=== PATIENT | female | born 1940 | race Caucasian/White ===

== ENCOUNTER → 2016-06-07 | Outpatient (CLI) | payer MEDICARE, OTHER ==
[2016-06-07 08:54] LABS: CHLORIDE,CL 104 mmol/L (98-110); SODIUM,NA 140 mmol/L (136-146)
== END ==
LOC: MW.CHRC 08:10
PROVIDERS: ATTEND Family Medicine
DX: I10 Essential (primary) hypertension (principal); E03.9 Hypothyroidism, unspecified; I50.9 Heart failure, unspecified; M19.90 Unspecified osteoarthritis, unspecified site; K21.9 Gastro-esophageal reflux disease without esophagitis
CPT/HCPCS: 36415; 80053; 84443; 99214

== ENCOUNTER → 2016-06-14 | Outpatient (CLI) | payer MEDICARE, OTHER ==
--- NOTE | 2016-06-15 14:43 | MY ---
EXAMINATION: Bilateral digital mammography utilizing CAD. HISTORY: Screening exam. Comparison is made to previous studies dated 05/18/2015, 05/15/2014. FINDINGS: Bilateral scattered fibroglandular densities. No suspicious calcifications, masses or a rchitectural distortions. No pathologic appearing lymph nodes, no abnormal skin thickening or nipp le inversion. CAD highlighted regions appear normal at this time. IMPRESSION: BI-RADS category I - negative mammogram. Continued screening according to ACR-ACS g uidelines suggested. THE FALSE-NEGATIVE RATE OF MAMMOGRAM IS APPROXIMATELY 10%. MANAGEMENT OF A PALPABLE ABNORMALITY MUST BE BASED UPON CLINICAL GROUNDS. SENSITIVITY FOR DETECTION OF ABNORMALITIES IN DENSE BREASTS IS LOW. NOTE: A letter will be sent to the patient regarding findings. [facility] -- [place] [phone] - FAX [phone]
--- NOTE | 2016-06-16 16:04 | ECHO ---
The echocardiogram report can be seen in this patient's EMR in the Reports section. LIOR
== END ==
LOC: MW.MAM 13:23
PROVIDERS: ATTEND Family Medicine
DX: Z12.31 Encounter for screening mammogram for malignant neoplasm of breast (principal); I50.9 Heart failure, unspecified
CPT/HCPCS: 93306; G0202

== ENCOUNTER 2018-03-01 07:21 | Observation (INO) | payer MEDICARE, OTHER ==
[~2018-03-01 07:21] MED LIST: Sodium Chloride 0.9% 10 ML Syringe FLUSH PRN; Sodium Chloride 0.9% 2.5 ML Syringe FLUSH PRN; ceFAZolin 2 GM in Premix Bag 1 BAG IV ONE
--- NOTE | 2018-03-01 07:47 | PCM.PREANE ---
Preanesthetic Assessment - Anesthesia/Transfusion/Family Hx Anesthesia History: Prior Anesthesia Without Reaction Family History of Anesthesia Reaction: No Transfusion History: Prior Transfusion Without Reaction - Review of Systems General: No Symptoms Pulmonary: No Symptoms Cardiovascular: No Symptoms Gastrointestinal: No Symptoms Neurological: No Symptoms Other: Reports: None - Physical Assessment NPO Status Date: 02/28/18 Height: 5 ft 3 in Weight: 74.389 kg ASA Class: 3 Mental Status: Alert & Oriented x3 Airway Class: Mallampati = 2 Dentition: Reports: Bridge (bilat lateral maxillary) Lungs: Clear to Auscultation, Normal Respiratory Effort Cardiovascular: Regular Rate, Regular Rhythm - Lab Values: Laboratory Last Values WBC 3.72 K/uL (4.0-11.0) L 02/28/18 11:48 RBC 3.06 M/uL (4.30-5.90) L 02/28/18 11:48 Hgb 11.0 g/dL (12.0-16.0) L 02/28/18 11:48 Hct 33.7 % (36.0-46.0) L 02/28/18 11:48 MCV 110.1 fL (80.0-98.0) H 02/28/18 11:48 MCH 35.9 pg (27.0-32.0) H 02/28/18 11:48 MCHC 32.6 g/dL (31.0-37.0) 02/28/18 11:48 RDW Std Deviation 54.7 fl (28.0-62.0) 02/28/18 11:48 RDW Coeff of Kristofer 14 % (11.0-15.0) 02/28/18 11:48 Plt Count 242 K/uL (150-400) 02/28/18 11:48 MPV 11.50 fL (7.40-12.00) 02/28/18 11:48 Nucleated RBC % 0.0 /100WBC 02/28/18 11:48 Nucleated RBCs # 0 K/uL 02/28/18 11:48 Sodium 143 mmol/L (136-145) 02/28/18 11:48 Potassium 3.9 mmol/L (3.5-5.1) 02/28/18 11:48 Chloride 107 mmol/L (98-107) 02/28/18 11:48 Carbon Dioxide 25.6 mmol/L (21.0-32.0) 02/28/18 11:48 BUN 24 mg/dL (7.0-18.0) H 02/28/18 11:48 Creatinine 1.2 mg/dL (0.6-1.0) H 02/28/18 11:48 Est Cr Clr Drug Dosing 32.48 mL/min 02/28/18 11:48 Estimated GFR (MDRD) 43.6 ml/min 02/28/18 11:48 Glucose 85 mg/dL (74-106) 02/28/18 11:48 Calcium 9.7 mg/dL (8.5-10.1) 02/28/18 11:48 Blood Type A POSITIVE 02/28/18 11:48 Antibody Screen NEGATIVE 02/28/18 11:48 - Allergies Allergies/Adverse Reactions: Allergies Allergy/AdvReac Type Severity Reaction Status Date / Time adhesive Allergy Burning Verified 02/28/18 16:09 cephalexin [Cephalexin] Allergy Hives Verified 02/27/18 09:49 erythromycin lactobionate Allergy Agitation Verified 02/27/18 09:49 [From Erythrocin] iodine Allergy Difficulty Verified 02/27/18 09:49 Breathing Penicillins Allergy Hives Verified 02/27/18 09:49 pregabalin [From Lyrica] Allergy Other Verified 02/27/18 09:49 simvastatin Allergy Muscle Verified 02/27/18 09:49 Aches - Anesthesia Plan Pre-Op Medication Ordered: Other (scop) - Acknowledgements Anesthesia Type Planned: General Anesthesia Pt an Appropriate Candidate for the Planned Anesthesia: Yes Alternatives and Risks of Anesthesia Discussed w Pt/Guardian: Yes Pt/Guardian Understands and Agrees with Anesthesia Plan: Yes Additional Comments: PROBLEM LIST: hx of cardiomyopathy- Ef this month was 50%, stress test in feb 2018- no ischemia, hx of SVT treated with ablation, hx of ASD repair in 2002, hx of polymyalgia-being tapered from steroids-now taking 5 mg of prednisone four times a week,CKD3-GFR=43, GERD, HTN, thyroid replacement, chronic LBBB, anxiety and depression PLAN: GET, if toradol indicated-give max dose of 15 mg, should not need steroid burst PreAnesthesia Questionnaire HEENT History: Reports: Hard of Hearing, Macular Degeneration, Other (See Below) Other HEENT History: wears glasses, has upper permanent partial denture Cardiovascular History: Reports: Arrhythmia, High Cholesterol, Hypertension, Other (See Below) Other Cardiovascular History: states 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- took aspirin Respiratory History: Reports: Asthma Gastrointestinal History: Reports: GERD Genitourinary History: Reports: UTI, Recurrent CLAIMS REPRESENTATIVE History: Reports: Other OB/BYN History: 4 c sections and 1 secondary enclosure Musculoskeletal History: Reports: Arthritis, Fracture Other Musculoskeletal History: hx of fx left hand Endocrine/Metabolic History: Reports: Hypothyroidism Hematologic History: Reports: Blood Transfusion(s) - Past Surgical History Head Surgeries/Procedures: Reports: None HEENT Surgical History: Reports: Tonsillectomy Cardiovascular Surgical History: Reports: Cardiac Ablation, Other (See Below) Other Cardiovascular Surgeries/Procedures: states had repair of a "hole in heart " with "umbrella placement" and cryoablation x2 (2004) GI Surgical History: Reports: Appendectomy Female Surgical History: Reports: Section Other Female Surgeries/Procedures: x4 - SUBSTANCE USE Smoking Status *Q: Former Smoker Tobacco Use Within Last Twelve Months: No Recreational Drug Use History: No - HOME MEDS Home Medications: Home Meds Acetaminophen [Tylenol Extra Strength] 1,000 mg PO Q4H 01/21/14 [History] Aspirin [Idalia Chewable] 81 mg PO MOWEFR 01/21/14 [History] Calcium Carb &Cit/Magnesium Ox [Calmag Thins Tablet] 1 tab PO DAILY 01/21/14 [ History] Furosemide [Lasix] 20 mg PO QAM 01/21/14 [History] Ibuprofen 800 mg PO BEDTIME 01/21/14 [History] Levothyroxine [Synthroid] 88 mcg PO QAM 01/21/14 [History] Lutein/Zeaxanthin [Lutein-Zeaxanthin 25-5 mg Sfgl] 1 cap PO DAILY 01/21/14 [ History] Multivitamin [Multivitamins] 1 cap PO DAILY 01/21/14 [History] Maxwell-3 Fatty Acids/Fish Oil [Fish Oil 1,200 mg Softgel] 1,200 mg PO DAILY 01/21 [History] Omeprazole 40 mg PO QAM 01/21/14 [History] Pravastatin [Pravachol] 40 mg PO BID 01/21/14 [History] Ramipril [Altace] 10 mg PO DAILY 01/21/14 [History] Ubidecarenone [Co Q-10] 100 mg PO DAILY 01/21/14 [History] Vitamin B Complex [Super B-50 Complex] 1 cap PO DAILY 01/21/14 [History] predniSONE 5 mg PO ASDIRECTED 01/21/14 [History] traMADol [Ultram] 50 mg PO Q6H 01/21/14 [History] Ascorbic Acid [Vitamin C] 1,000 mg PO DAILY 02/27/18 [History] Cholecalciferol (Vitamin D3) [Vitamin D3] 2,000 mg PO DAILY 02/27/18 [History] Glucosam/Chond/Hyalu/Cf Borate [Move Free Joint Health Tablet] 1 tab PO DAILY [History] Nitrofurantoin Macrocrystal [Nitrofurantoin] 50 mg PO DAILY 02/27/18 [History] Vitamin E (Dl,Tocopheryl Acet) [Vitamin E] 200 unit PO DAILY 02/27/18 [History] - CURRENT (IN HOUSE) MEDS Current Meds: Current Medications Cefazolin Sodium/Dextrose 2 gm (/ Premix) 50 mls @ 100 mls/hr IV ONETIME ONE Stop: 02/28/18 09:53 Lactated Ringer's (Ringers, Lactated) 1,000 mls @ 125 mls/hr IV ASDIRECTED [facility] Sodium Chloride (Saline Flush) 10 ml FLUSH ASDIRECTED PRN PRN Reason: Keep Vein Open Sodium Chloride (Saline Flush) 2.5 ml FLUSH ASDIRECTED PRN PRN Reason: Keep Vein Open
[2018-03-01] MEDS ORDERED: Fluorescein 5 ML Vial ONE (07:48)
[2018-03-01] MEDS ORDERED: Scopolamine 1.5 MG Transdermal Patch TRDERM PRN ×2 (07:49)
[2018-03-01] MEDS ORDERED: fentaNYL 100 MCG/2 ML SDV IVPUSH PRN (07:49)
[2018-03-01] MEDS ORDERED: Acetaminophen 1,000 MG in Premix Bag 1 BAG IV SCH (08:00)
[2018-03-01] MEDS ORDERED: Scopolamine 1.5 MG Transdermal Patch ONE (08:14)
[2018-03-01] MEDS ORDERED: Ondansetron 4 MG/2 ML SDV ONE (08:57)
[2018-03-01] MEDS ORDERED: Rocuronium 10 MG/ML 10 ML Syringe ONE (08:57)
[2018-03-01] MEDS ORDERED: Lidocaine 2% 5 ML SDV ONE (08:57)
[2018-03-01] MEDS ORDERED: fentaNYL 250 MCG/5 ML SDV ONE (08:57)
[2018-03-01] MEDS ORDERED: Propofol 200 MG/20 ML SDV ONE (08:57)
[2018-03-01] MEDS ORDERED: Midazolam 1 MG/ML 2 ML SDV ONE (08:57)
[2018-03-01] MEDS: Lactated Ringers 1,000 ML IV SCH ×2 (09:30→18:55)
[2018-03-01] MEDS ORDERED: HYDROmorphone 2 MG/ML Syringe ONE (10:05)
[2018-03-01] MEDS ORDERED: Furosemide 40 MG/4 ML VIAL ONE (11:03)
[2018-03-01] MEDS ORDERED: Promethazine 25 MG/ML SDV IM PRN (11:20)
[2018-03-01] MEDS ORDERED: Acetaminophen/oxyCODONE 325-5 MG Tab PO PRN (11:20)
[2018-03-01] MEDS ORDERED: Ketorolac 30 MG/ML SDV IVPUSH ONE (11:20)
[2018-03-01] MEDS ORDERED: Ondansetron 4 MG/2 ML SDV IVPUSH PRN (11:20)
[2018-03-01] MEDS ORDERED: Ketorolac 30 MG/ML SDV IVPUSH PRN (11:20)
--- NOTE | 2018-03-01 11:27 | PCM.OPNOTE ---
- General Post-Op/Procedure Note Date of Surgery/Procedure: 03/01/18 Operative Procedure(s): TVH,BSO,TVT,ant.repair and cystoscopy. Post-Op Diagnosis: Same Anesthesia Technique: General LMA Primary Surgeon: Adolfo Gibson EBL in mLs: 500 Complications: None Condition: Good
[2018-03-01] MEDS: Acetaminophen/oxyCODONE 325-5 MG Tab PO PRN ×3 (14:50→22:20)
[2018-03-01] MEDS: Ketorolac 30 MG/ML SDV IVPUSH PRN (16:34)
--- NOTE | 2018-03-01 16:59 | PCM48HPAN ---
Post Anesthesia Note - EVALUATION WITHIN 48HRS OF ANESTHETIC Vital Signs in Normal Range: Yes Patient Participated in Evaluation: Yes Respiratory Function Stable: Yes Airway Patent: Yes Cardiovascular Function Stable: Yes Hydration Status Stable: Yes Pain Control Satisfactory: Yes Nausea and Vomiting Control Satisfactory: Yes Pulse Rate: 82 SaO2: 96 Resp Rate: 16 Blood Pressure: 122/78 - COMMENTS/OBSERVATIONS Free Text/Narrative:: awake, alert, vitals stable. Sitting in chair. Says pain is 5/10. Drinking water , eating jello, fruit and cottage cheese. Goood post op phase II recovery.
--- NOTE | 2018-03-01 17:42 | OR ---
SURGEON: Adolfo Gibson MD DATE OF PROCEDURE: 03/01/2018 PREOPERATIVE DIAGNOSES: Pelvic relaxation and prolapse of female organ. POSTOPERATIVE DIAGNOSES: Pelvic relaxation and prolapse of female organ. OPERATIONS PERFORMED: Total vaginal hysterectomy, vaginal bilateral salpingo-oophorectomy, Solyx TVT, anterior repair with Leonela plication, cystoscopy, and Kelly culdoplasty. SECONDARY SCHOOL REGISTRAR: OR tech. ANESTHESIA: General endotracheal intubation. ANESTHESIOLOGIST: Dr. Danette Calhoun, and Dr. Hdz. ESTIMATED BLOOD LOSS: 500 mL. COMPLICATIONS: None. FINDINGS: Prolapse and pelvic relaxation. INDICATION FOR SURGERY: [place] refer to the admit note. PROCEDURE IN DETAIL: The patient was brought to the OR, properly identified and after adequate level of anesthesia, the patient was placed in lithotomy position and prepped and draped in sterile fashion as usual, and then straight catheter was used to empty the bladder. Short weighted speculum was placed in vagina and then the single- tooth tenaculum was applied to the cervix. Circular incision in the vaginal mucosa was done around the cervix and then the posterior cul-de-sac was entered posteriorly. Peritoneum and the vagina tacked posteriorly, and short weighted speculum was placed with extending long weighted speculum. Then, the uterosacral ligament was clamped and transected from both sides. The same thing with the cardinal ligament, and then the cervical vesicle space was entered anteriorly. The bladder retracted completely from the operative field, and the anterior peritoneum entered broad ligament and the superior pedicle was clamped with curved Zeppelin, transected, suture ligated with 2-0 Vicryl pop-off and then the specimen delivered posteriorly and the superior pedicle was taken with a 90 degree zeppelin from both sides. The tubes and ovaries included with the specimen. Once that is done, then Kelly culdoplasty was performed. External and internal Kelly culdoplasty was performed and then the vaginal cuff was closed and Kelly culdoplasty was tied to obliterate the enterocele and elevated the rectocele area. Then, attention was paid to the anterior vaginal wall, and then the anterior vaginal wall was infiltrated with copious amount of normal saline and then opened from the vaginal wall to the urethra and dissected laterally. The bladder dissected completely away from the anterior vaginal wall and then Solyx TVT was placed in place to elevate the urethrovesical angle and Leonela plication was performed for the cystocele. Once that was done, the excess vaginal mucosa trimmed anteriorly and the vaginal mucosa was closed with 2-0 Vicryl continuous interlocking. While we were doing that, we asked Anesthesia to give the dye and then cystoscopy was performed. The bladder was intact. Both ureteric orifices seen with the dye coming from both of them. Thus, the patency of both ureters verified, satisfied with these findings. The procedure was ended. Vaginal plaque was placed in the vagina and Goldberg catheter was placed for drainage. The patient tolerated the procedure well and went to recovery room in stable general condition. LIZETT / JAIRO /[id number]
[2018-03-01] MEDS: Morphine 4 MG/ML Syringe IVPUSH PRN (19:12)
[2018-03-01] MEDS ORDERED: diphenhydrAMINE 25 MG Cap PO PRN (22:19)
[2018-03-01] MEDS ORDERED: diphenhydrAMINE 25 MG Cap PO ONE (22:29)
[2018-03-02] MEDS: Ketorolac 30 MG/ML SDV IVPUSH PRN ×2 (00:48→19:26)
[2018-03-02] MEDS: Morphine 4 MG/ML Syringe IVPUSH PRN (04:37)
[2018-03-02] MEDS: Acetaminophen/oxyCODONE 325-5 MG Tab PO PRN ×3 (08:35→16:08)
--- NOTE | 2018-03-02 13:49 | PCM.SURGPN ---
- General Info Date of Service: 03/02/18 POD#: 1 Functional Status: Reports: Pain Controlled - Review of Systems General: Reports: No Symptoms HEENT: Reports: No Symptoms Pulmonary: Reports: No Symptoms Cardiovascular: Reports: No Symptoms Gastrointestinal: Reports: No Symptoms Genitourinary: Reports: No Symptoms Musculoskeletal: Reports: No Symptoms Skin: Reports: No Symptoms Neurological: Reports: No Symptoms Psychiatric: Reports: No Symptoms - Patient Data Vitals - Most Recent: Last Vital Signs Temp 36.7 C 03/02/18 12:00 Pulse 104 H 03/02/18 12:00 Resp 16 03/02/18 12:00 BP 113/59 L 03/02/18 12:00 Pulse Ox 93 L 03/02/18 12:00 Weight - Most Recent: 74.389 kg I&O - Last 24 Hours: Intake & Output 03/01/18 03/02/18 03/02/18 22:59 06:59 14:59 Intake Total 420 2275 Output Total 550 1350 Balance -130 925 Lab Results Last 24 Hrs: Laboratory Results - last 24 hr 03/02/18 03/02/18 Range/Units 05:00 05:00 WBC 6.89 (4.0-11.0) K/uL RBC 2.43 L (4.30-5.90) M/uL Hgb 8.9 L (12.0-16.0) g/dL Hct 26.8 L (36.0-46.0) % MCV 110.3 H (80.0-98.0) fL MCH 36.6 H (27.0-32.0) pg MCHC 33.2 (31.0-37.0) g/dL RDW Std Deviation 54.3 (28.0-62.0) fl RDW Coeff of Kristofer 14 (11.0-15.0) % Plt Count 175 (150-400) K/uL MPV 11.20 (7.40-12.00) fL Neut % (Auto) 72.0 (48.0-80.0) % Lymph % (Auto) 16.8 (16.0-40.0) % [place] % (Auto) 8.9 (0.0-15.0) % Eos % (Auto) 2.0 (0.0-7.0) % Baso % (Auto) 0.3 (0.0-1.5) % Neut # (Auto) 5.0 (1.4-5.7) K/uL Lymph # (Auto) 1.2 (0.6-2.4) K/uL [place] # (Auto) 0.6 (0.0-0.8) K/uL Eos # (Auto) 0.1 (0.0-0.7) K/uL Baso # (Auto) 0.0 (0.0-0.1) K/uL Nucleated RBC % 0.0 /100WBC Nucleated RBCs # 0 K/uL Sodium 142 (136-145) mmol/L Potassium 3.9 (3.5-5.1) mmol/L Chloride 109 H (98-107) mmol/L Carbon Dioxide 26.7 (21.0-32.0) mmol/L BUN 18 (7.0-18.0) mg/dL Creatinine 1.0 (0.6-1.0) mg/dL Est Cr Clr Drug Dosing 38.97 mL/min Estimated GFR (MDRD) 53.8 ml/min Glucose 100 (74-106) mg/dL Calcium 8.5 (8.5-10.1) mg/dL Med Orders - Current: Current Medications Lactated Ringer's (Ringers, Lactated) 1,000 mls @ 125 mls/hr IV ASDIRECTED [facility] Last Admin: 03/01/18 18:55 Dose: 125 mls/hr Ketorolac Tromethamine (Toradol) 15 mg IVPUSH Q6H PRN PRN Reason: Pain (severe 7-10) Stop: 03/06/18 11:20 Last Admin: 03/02/18 00:48 Dose: 15 mg Morphine Sulfate (Morphine) 4 mg IVPUSH Q2H PRN PRN Reason: Pain (severe 7-10) Last Admin: 03/02/18 04:37 Dose: 4 mg Ondansetron HCl (Zofran) 4 mg IVPUSH Q6H PRN PRN Reason: Nausea/Vomiting Last Admin: 03/02/18 08:35 Dose: 4 mg Oxycodone/Acetaminophen (Percocet 325-5 Mg) 1 tab PO Q4H PRN PRN Reason: Pain (moderate 4-6) Last Admin: 03/02/18 11:56 Dose: 1 tab Oxycodone/Acetaminophen (Percocet 325-5 Mg) 2 tab PO Q4H PRN PRN Reason: Pain (moderate 4-6) Promethazine HCl (Phenergan) 25 mg IM Q6H PRN PRN Reason: Nausea/Vomiting Scopolamine (Transderm-Scop) 1.5 mg TRDERM Q72H PRN PRN Reason: Nausea/Vomiting Last Admin: 03/01/18 08:30 Dose: 1.5 mg Sodium Chloride (Saline Flush) 10 ml FLUSH ASDIRECTED PRN PRN Reason: Keep Vein Open Sodium Chloride (Saline Flush) 2.5 ml FLUSH ASDIRECTED PRN PRN Reason: Keep Vein Open Discontinued Medications Diphenhydramine HCl (Benadryl) 12.5 mg PO Q4H PRN PRN Reason: Itching Diphenhydramine HCl (Benadryl) 25 mg PO ONETIME ONE Stop: 03/01/18 22:30 Last Admin: 03/01/18 22:34 Dose: 25 mg Fentanyl (Sublimaze) 50 - 100 mcg IVPUSH .Q5MIN PRN PRN Reason: Pain Fentanyl (Sublimaze) Confirm Administered Dose 250 mcg .ROUTE .STK-MED ONE Stop: 03/01/18 08:58 Fluorescein Sodium (Ak-Fluor) Confirm Administered Dose 5 ml .ROUTE .STK-MED ONE Stop: 03/01/18 07:49 Furosemide (Lasix) Confirm Administered Dose 40 mg .ROUTE .STK-MED ONE Stop: 03/01/18 11:04 Hydromorphone HCl (Dilaudid) Confirm Administered Dose 2 mg .ROUTE .STK-MED ONE Stop: 03/01/18 10:06 Cefazolin Sodium/Dextrose 2 gm (/ Premix) 50 mls @ 100 mls/hr IV ONETIME ONE Stop: 02/28/18 09:53 Last Admin: 03/01/18 12:02 Dose: Not Given Acetaminophen 1,000 mg/ Premix 100 mls @ 400 mls/hr IV .ONETIME JOAN Vancomycin HCl 1 gm/ Sodium (Chloride) 250 mls @ 166 mls/hr IV ONETIME ONE Stop: 03/01/18 10:10 Last Admin: 03/01/18 12:00 Dose: Not Given Ketorolac Tromethamine (Toradol) 30 mg IVPUSH ONETIME ONE Stop: 03/01/18 11:21 Last Admin: 03/01/18 13:34 Dose: Not Given Ketorolac Tromethamine (Toradol) 30 mg IVPUSH Q6H PRN PRN Reason: Pain (severe 7-10) Stop: 03/06/18 11:20 Lidocaine (Xylocaine-Mpf 2%) Confirm Administered Dose 5 ml .ROUTE .STK-MED ONE Stop: 03/01/18 08:58 Midazolam HCl (Versed 1 Mg/Ml) Confirm Administered Dose 2 mg .ROUTE .STK-MED ONE Stop: 03/01/18 08:58 Ondansetron HCl (Zofran) Confirm Administered Dose 4 mg .ROUTE .STK-MED ONE Stop: 03/01/18 08:58 Propofol (Diprivan 20 Ml) Confirm Administered Dose 200 mg .ROUTE .STK-MED ONE Stop: 03/01/18 08:58 Rocuronium Leona (Zemuron) Confirm Administered Dose 100 mg .ROUTE .STK-MED ONE Stop: 03/01/18 08:58 Scopolamine (Transderm-Scop) Confirm Administered Dose 1.5 mg .ROUTE .STK-MED ONE Stop: 03/01/18 08:15 Last Admin: 03/01/18 12:00 Dose: Not Given - Exam Wound/Incisions: Healing Well General: Alert, Oriented HEENT: Pupils Equal Neck: Supple Lungs: Clear to Auscultation, Normal Respiratory Effort Cardiovascular: Regular Rate, Regular Rhythm GI/Abdominal Exam: Normal Bowel Sounds, Soft, Non-Tender, No Organomegaly, No Distention, No Abnormal Bruit, No Mass, Pelvis Stable Extremities: Normal Inspection, Normal Range of Motion, Non-Tender, No Pedal Edema, Normal Capillary Refill Skin: Warm, Dry, Intact Neurological: No New Focal Deficit Psy/Mental Status: Alert, Normal Affect, Normal Mood - Problem List Review Problem List Initiated/Reviewed/Updated: Yes - My Orders Last 24 Hours: Active Orders 24 hr Category Date Time Status Regular Diet [DIET] Diet 03/01/18 Dinner Active Medication Orders Lactated Ringer's (Ringers, Lactated) 1,000 mls @ 125 mls/hr IV ASDIRECTED [facility] Last Admin: 03/01/18 18:55 Dose: 125 mls/hr Infusion: 03/01/18 17:30 Dose: 125 mls/hr Admin: 03/01/18 09:30 Dose: 125 mls/hr Ketorolac Tromethamine (Toradol) 15 mg IVPUSH Q6H PRN PRN Reason: Pain (severe 7-10) Stop: 03/06/18 11:20 Last Admin: 03/02/18 00:48 Dose: 15 mg Admin: 03/01/18 16:34 Dose: 15 mg Morphine Sulfate (Morphine) 4 mg IVPUSH Q2H PRN PRN Reason: Pain (severe 7-10) Last Admin: 03/02/18 04:37 Dose: 4 mg Admin: 03/01/18 19:12 Dose: 4 mg Ondansetron HCl (Zofran) 4 mg IVPUSH Q6H PRN PRN Reason: Nausea/Vomiting Last Admin: 03/02/18 08:35 Dose: 4 mg Oxycodone/Acetaminophen (Percocet 325-5 Mg) 1 tab PO Q4H PRN PRN Reason: Pain (moderate 4-6) Last Admin: 03/02/18 11:56 Dose: 1 tab Admin: 03/02/18 08:35 Dose: 1 tab Admin: 03/01/18 22:20 Dose: 1 tab Admin: 03/01/18 17:49 Dose: 0.5 tab Admin: 03/01/18 14:50 Dose: 0.5 tab Oxycodone/Acetaminophen (Percocet 325-5 Mg) 2 tab PO Q4H PRN PRN Reason: Pain (moderate 4-6) Promethazine HCl (Phenergan) 25 mg IM Q6H PRN PRN Reason: Nausea/Vomiting Scopolamine (Transderm-Scop) 1.5 mg TRDERM Q72H PRN PRN Reason: Nausea/Vomiting Last Admin: 03/01/18 08:30 Dose: 1.5 mg Sodium Chloride (Saline Flush) 10 ml FLUSH ASDIRECTED PRN PRN Reason: Keep Vein Open Sodium Chloride (Saline Flush) 2.5 ml FLUSH ASDIRECTED PRN PRN Reason: Keep Vein Open - Assessment Assessment (Free Text/Narrative):: Status post TVH BSO and TVT and anterior repair for pelvic relaxation postoperative doing well vaginal pack is removed I'm going to try to see her the patient reported after will remove the Goldberg catheter. We will keep the patient here overnight and possibly discharge in a.m.
[2018-03-02] MEDS ORDERED: Calcium Carbonate 500 MG Tab.Chew PO PRN (15:55)
[2018-03-02] MEDS: Omeprazole 20 MG Cap.CR PO SCH (16:09)
[2018-03-03] MEDS: Omeprazole 20 MG Cap.CR PO SCH (08:33)
--- NOTE | 2018-03-03 11:10 | PCM.SURGPN ---
- General Info Date of Service: 03/03/18 POD#: 2 Functional Status: Reports: Pain Controlled - Review of Systems General: Reports: No Symptoms HEENT: Reports: No Symptoms Pulmonary: Reports: No Symptoms Cardiovascular: Reports: No Symptoms Gastrointestinal: Reports: No Symptoms Genitourinary: Reports: No Symptoms Musculoskeletal: Reports: No Symptoms Skin: Reports: No Symptoms Neurological: Reports: No Symptoms Psychiatric: Reports: No Symptoms - Patient Data Vitals - Most Recent: Last Vital Signs Temp 36.9 C 03/03/18 08:00 Pulse 91 03/03/18 08:00 Resp 16 03/03/18 08:00 BP 111/55 L 03/03/18 08:00 Pulse Ox 91 L 03/03/18 08:00 Weight - Most Recent: 74.389 kg I&O - Last 24 Hours: Intake & Output 03/02/18 03/03/18 03/03/18 22:59 06:59 14:59 Intake Total 1180 850 Output Total 400 1750 Balance 780 -900 Med Orders - Current: Current Medications Calcium Carbonate/Glycine (Tums) 500 mg PO Q4HR PRN PRN Reason: Indigestion Lactated Ringer's (Ringers, Lactated) 1,000 mls @ 125 mls/hr IV ASDIRECTED [facility] Last Admin: 03/01/18 18:55 Dose: 125 mls/hr Ketorolac Tromethamine (Toradol) 15 mg IVPUSH Q6H PRN PRN Reason: Pain (severe 7-10) Stop: 03/06/18 11:20 Last Admin: 03/02/18 19:26 Dose: 15 mg Morphine Sulfate (Morphine) 4 mg IVPUSH Q2H PRN PRN Reason: Pain (severe 7-10) Last Admin: 03/02/18 04:37 Dose: 4 mg Omeprazole ([facility]razole) [facility] Last Admin: 03/03/18 08:33 Dose: 40 mg Ondansetron HCl (Zofran) 4 mg IVPUSH Q6H PRN PRN Reason: Nausea/Vomiting Last Admin: 03/02/18 08:35 Dose: 4 mg Oxycodone/Acetaminophen (Percocet 325-5 Mg) 1 tab PO Q4H PRN PRN Reason: Pain (moderate 4-6) Last Admin: 03/02/18 16:08 Dose: 1 tab Oxycodone/Acetaminophen (Percocet 325-5 Mg) 2 tab PO Q4H PRN PRN Reason: Pain (moderate 4-6) Promethazine HCl (Phenergan) 25 mg IM Q6H PRN PRN Reason: Nausea/Vomiting Scopolamine (Transderm-Scop) 1.5 mg TRDERM Q72H PRN PRN Reason: Nausea/Vomiting Last Admin: 03/01/18 08:30 Dose: 1.5 mg Sodium Chloride (Saline Flush) 10 ml FLUSH ASDIRECTED PRN PRN Reason: Keep Vein Open Sodium Chloride (Saline Flush) 2.5 ml FLUSH ASDIRECTED PRN PRN Reason: Keep Vein Open Discontinued Medications Diphenhydramine HCl (Benadryl) 12.5 mg PO Q4H PRN PRN Reason: Itching Diphenhydramine HCl (Benadryl) 25 mg PO ONETIME ONE Stop: 03/01/18 22:30 Last Admin: 03/01/18 22:34 Dose: 25 mg Fentanyl (Sublimaze) 50 - 100 mcg IVPUSH .Q5MIN PRN PRN Reason: Pain Fentanyl (Sublimaze) Confirm Administered Dose 250 mcg .ROUTE .STK-MED ONE Stop: 03/01/18 08:58 Fluorescein Sodium (Ak-Fluor) Confirm Administered Dose 5 ml .ROUTE .STK-MED ONE Stop: 03/01/18 07:49 Furosemide (Lasix) Confirm Administered Dose 40 mg .ROUTE .STK-MED ONE Stop: 03/01/18 11:04 Hydromorphone HCl (Dilaudid) Confirm Administered Dose 2 mg .ROUTE .STK-MED ONE Stop: 03/01/18 10:06 Cefazolin Sodium/Dextrose 2 gm (/ Premix) 50 mls @ 100 mls/hr IV ONETIME ONE Stop: 02/28/18 09:53 Last Admin: 03/01/18 12:02 Dose: Not Given Acetaminophen 1,000 mg/ Premix 100 mls @ 400 mls/hr IV .ONETIME JOAN Vancomycin HCl 1 gm/ Sodium (Chloride) 250 mls @ 166 mls/hr IV ONETIME ONE Stop: 03/01/18 10:10 Last Admin: 03/01/18 12:00 Dose: Not Given Ketorolac Tromethamine (Toradol) 30 mg IVPUSH ONETIME ONE Stop: 03/01/18 11:21 Last Admin: 03/01/18 13:34 Dose: Not Given Ketorolac Tromethamine (Toradol) 30 mg IVPUSH Q6H PRN PRN Reason: Pain (severe 7-10) Stop: 03/06/18 11:20 Lidocaine (Xylocaine-Mpf 2%) Confirm Administered Dose 5 ml .ROUTE .STK-MED ONE Stop: 03/01/18 08:58 Midazolam HCl (Versed 1 Mg/Ml) Confirm Administered Dose 2 mg .ROUTE .STK-MED ONE Stop: 03/01/18 08:58 Ondansetron HCl (Zofran) Confirm Administered Dose 4 mg .ROUTE .STK-MED ONE Stop: 03/01/18 08:58 Propofol (Diprivan 20 Ml) Confirm Administered Dose 200 mg .ROUTE .STK-MED ONE Stop: 03/01/18 08:58 Rocuronium [place] (Zemuron) Confirm Administered Dose 100 mg .ROUTE .STK-MED ONE Stop: 03/01/18 08:58 Scopolamine (Transderm-Scop) Confirm Administered Dose 1.5 mg .ROUTE .STK-MED ONE Stop: 03/01/18 08:15 Last Admin: 03/01/18 12:00 Dose: Not Given - Exam Wound/Incisions: Healing Well General: Alert, Oriented HEENT: Pupils Equal Neck: Supple Lungs: Clear to Auscultation, Normal Respiratory Effort Cardiovascular: Regular Rate, Regular Rhythm GI/Abdominal Exam: Normal Bowel Sounds, Soft, Non-Tender, No Organomegaly, No Distention, No Abnormal Bruit, No Mass, Pelvis Stable Extremities: Normal Inspection, Normal Range of Motion, Non-Tender, No Pedal Edema, Normal Capillary Refill Skin: Warm, Dry, Intact Neurological: No New Focal Deficit Psy/Mental Status: Alert, Normal Affect, Normal Mood - Problem List Review Problem List Initiated/Reviewed/Updated: Yes - My Orders Last 24 Hours: Active Orders 24 hr Category Date Time Status Patient Status [ADT] Routine ADT 03/02/18 19:27 Active Communication Order [RC] ROUTINE Care 03/02/18 15:55 Active Insert Goldberg Catheter [Insert Urinary Catheter] [OM.PC] Care 03/02/18 17:00 Ordered Stat Urinary Catheter Assessment [RC] Q4H Care 03/02/18 18:00 Active Calcium Carbonate [Tums] Med 03/02/18 15:55 Active 500 mg PO Q4HR PRN Omeprazole Med 03/02/18 15:55 Active 40 mg PO QA Medication Orders Calcium Carbonate/Glycine (Tums) 500 mg PO Q4HR PRN PRN Reason: Indigestion Lactated Ringer's (Ringers, Lactated) 1,000 mls @ 125 mls/hr IV ASDIRECTED [facility] Last Admin: 03/01/18 18:55 Dose: 125 mls/hr Infusion: 03/01/18 17:30 Dose: 125 mls/hr Admin: 03/01/18 09:30 Dose: 125 mls/hr Ketorolac Tromethamine (Toradol) 15 mg IVPUSH Q6H PRN PRN Reason: Pain (severe 7-10) Stop: 03/06/18 11:20 Last Admin: 03/02/18 19:26 Dose: 15 mg Admin: 03/02/18 00:48 Dose: 15 mg Admin: 03/01/18 16:34 Dose: 15 mg Morphine Sulfate (Morphine) 4 mg IVPUSH Q2H PRN PRN Reason: Pain (severe 7-10) Last Admin: 03/02/18 04:37 Dose: 4 mg Admin: 03/01/18 19:12 Dose: 4 mg Omeprazole (Omeprazole) [facility] Last Admin: 03/03/18 08:33 Dose: 40 mg Admin: 03/02/18 16:09 Dose: 40 mg Ondansetron HCl (Zofran) 4 mg IVPUSH Q6H PRN PRN Reason: Nausea/Vomiting Last Admin: 03/02/18 08:35 Dose: 4 mg Oxycodone/Acetaminophen (Percocet 325-5 Mg) 1 tab PO Q4H PRN PRN Reason: Pain (moderate 4-6) Last Admin: 03/02/18 16:08 Dose: 1 tab Admin: 03/02/18 11:56 Dose: 1 tab Admin: 03/02/18 08:35 Dose: 1 tab Admin: 03/01/18 22:20 Dose: 1 tab Admin: 03/01/18 17:49 Dose: 0.5 tab Admin: 03/01/18 14:50 Dose: 0.5 tab Oxycodone/Acetaminophen (Percocet 325-5 Mg) 2 tab PO Q4H PRN PRN Reason: Pain (moderate 4-6) Promethazine HCl (Phenergan) 25 mg IM Q6H PRN PRN Reason: Nausea/Vomiting Scopolamine (Transderm-Scop) 1.5 mg TRDERM Q72H PRN PRN Reason: Nausea/Vomiting Last Admin: 03/01/18 08:30 Dose: 1.5 mg Sodium Chloride (Saline Flush) 10 ml FLUSH ASDIRECTED PRN PRN Reason: Keep Vein Open Sodium Chloride (Saline Flush) 2.5 ml FLUSH ASDIRECTED PRN PRN Reason: Keep Vein Open - Assessment Assessment (Free Text/Narrative):: Pt is doing well. send home with the foly cath.
--- NOTE | 2018-03-03 11:11 | PCM.DCSUM1 ---
Discharge Summary - Hospital Course Diagnosis: Stroke: No - Discharge Data Discharge Date: 03/03/18 Discharge Disposition: Home, Self-Care 01 Condition: Good - Patient Summary/Data Operative Procedure(s) Performed: TVH,BSO,TVT,ant.repair and cystoscopy. - Patient Instructions Diet: Usual Diet as Tolerated Activity: As Tolerated Driving: Do Not Drive Showering/Bathing: May Shower - Discharge Plan Home Medications: Home Meds Acetaminophen [Tylenol Extra Strength] 1,000 mg PO Q4H 01/21/14 [History] Aspirin [[place] Chewable] 81 mg PO MOWEFR 01/21/14 [History] Calcium Carb &Cit/Magnesium Ox [Calmag Thins Tablet] 1 tab PO DAILY 01/21/14 [ History] Furosemide [Lasix] 20 mg PO QAM 01/21/14 [History] Ibuprofen 800 mg PO BEDTIME 01/21/14 [History] Levothyroxine [Synthroid] 88 mcg PO QAM 01/21/14 [History] Lutein/Zeaxanthin [Lutein-Zeaxanthin 25-5 mg Sfgl] 1 cap PO DAILY 01/21/14 [ History] Multivitamin [Multivitamins] 1 cap PO DAILY 01/21/14 [History] [place]-3 Fatty Acids/Fish Oil [Fish Oil 1,200 mg Softgel] 1,200 mg PO DAILY 01/21 [History] Omeprazole 40 mg PO QAM 01/21/14 [History] Pravastatin [Pravachol] 40 mg PO BID 01/21/14 [History] Ramipril [Altace] 10 mg PO DAILY 01/21/14 [History] Ubidecarenone [Co Q-10] 100 mg PO DAILY 01/21/14 [History] Vitamin B Complex [Super B-50 Complex] 1 cap PO DAILY 01/21/14 [History] predniSONE 5 mg PO ASDIRECTED 01/21/14 [History] traMADol [Ultram] 50 mg PO Q6H 01/21/14 [History] Ascorbic Acid [Vitamin C] 1,000 mg PO DAILY 02/27/18 [History] Cholecalciferol (Vitamin D3) [Vitamin D3] 2,000 mg PO DAILY 02/27/18 [History] Glucosam/Chond/Hyalu/Cf Borate [Move Free Joint Health Tablet] 1 tab PO DAILY [History] Nitrofurantoin Macrocrystal [Nitrofurantoin] 50 mg PO DAILY 02/27/18 [History] Vitamin E (Dl,Tocopheryl Acet) [Vitamin E] 200 unit PO DAILY 02/27/18 [History] Patient Handouts: Vaginal Hysterectomy, Care After Referrals: Adolfo Gibson MD [Physician] - - Discharge Summary/Plan Comment DC Time >30 min.: Yes - General Info Date of Service: 03/03/18 Functional Status: Reports: Pain Controlled - Review of Systems General: Reports: No Symptoms HEENT: Reports: No Symptoms Pulmonary: Reports: No Symptoms Cardiovascular: Reports: No Symptoms Gastrointestinal: Reports: No Symptoms Genitourinary: Reports: No Symptoms Musculoskeletal: Reports: No Symptoms Skin: Reports: No Symptoms Neurological: Reports: No Symptoms Psychiatric: Reports: No Symptoms - Patient Data Vitals - Most Recent: Last Vital Signs Temp 36.9 C 03/03/18 08:00 Pulse 91 03/03/18 08:00 Resp 16 03/03/18 08:00 BP 111/55 L 03/03/18 08:00 Pulse Ox 91 L 03/03/18 08:00 Weight - Most Recent: 74.389 kg I&O - Last 24 hours: Intake & Output 03/02/18 03/03/18 03/03/18 22:59 06:59 14:59 Intake Total 1180 850 Output Total 400 1750 Balance 780 -900 Med Orders - Current: Current Medications Calcium Carbonate/Glycine (Tums) 500 mg PO Q4HR PRN PRN Reason: Indigestion Lactated Ringer's (Ringers, Lactated) 1,000 mls @ 125 mls/hr IV ASDIRECTED [facility] Last Admin: 03/01/18 18:55 Dose: 125 mls/hr Ketorolac Tromethamine (Toradol) 15 mg IVPUSH Q6H PRN PRN Reason: Pain (severe 7-10) Stop: 03/06/18 11:20 Last Admin: 03/02/18 19:26 Dose: 15 mg Morphine Sulfate (Morphine) 4 mg IVPUSH Q2H PRN PRN Reason: Pain (severe 7-10) Last Admin: 03/02/18 04:37 Dose: 4 mg Omeprazole (Omeprazole) 40 [facility] [place] Last Admin: 03/03/18 08:33 Dose: 40 mg Ondansetron HCl (Zofran) 4 mg IVPUSH Q6H PRN PRN Reason: Nausea/Vomiting Last Admin: 03/02/18 08:35 Dose: 4 mg Oxycodone/Acetaminophen (Percocet 325-5 Mg) 1 tab PO Q4H PRN PRN Reason: Pain (moderate 4-6) Last Admin: 03/02/18 16:08 Dose: 1 tab Oxycodone/Acetaminophen (Percocet 325-5 Mg) 2 tab PO Q4H PRN PRN Reason: Pain (moderate 4-6) Promethazine HCl (Phenergan) 25 mg IM Q6H PRN PRN Reason: Nausea/Vomiting Scopolamine (Transderm-Scop) 1.5 mg TRDERM Q72H PRN PRN Reason: Nausea/Vomiting Last Admin: 03/01/18 08:30 Dose: 1.5 mg Sodium Chloride (Saline Flush) 10 ml FLUSH ASDIRECTED PRN PRN Reason: Keep Vein Open Sodium Chloride (Saline Flush) 2.5 ml FLUSH ASDIRECTED PRN PRN Reason: Keep Vein Open Discontinued Medications Diphenhydramine HCl (Benadryl) 12.5 mg PO Q4H PRN PRN Reason: Itching Diphenhydramine HCl (Benadryl) 25 mg PO ONETIME ONE Stop: 03/01/18 22:30 Last Admin: 03/01/18 22:34 Dose: 25 mg Fentanyl (Sublimaze) 50 - 100 mcg IVPUSH .Q5MIN PRN PRN Reason: Pain Fentanyl (Sublimaze) Confirm Administered Dose 250 mcg .ROUTE .STK-MED ONE Stop: 03/01/18 08:58 Fluorescein Sodium (Ak-Fluor) Confirm Administered Dose 5 ml .ROUTE .STK-MED ONE Stop: 03/01/18 07:49 Furosemide (Lasix) Confirm Administered Dose 40 mg .ROUTE .STK-MED ONE Stop: 03/01/18 11:04 Hydromorphone HCl (Dilaudid) Confirm Administered Dose 2 mg .ROUTE .STK-MED ONE Stop: 03/01/18 10:06 Cefazolin Sodium/Dextrose 2 gm (/ Premix) 50 mls @ 100 mls/hr IV ONETIME ONE Stop: 02/28/18 09:53 Last Admin: 03/01/18 12:02 Dose: Not Given Acetaminophen 1,000 mg/ Premix 100 mls @ 400 mls/hr IV .ONETIME JOAN Vancomycin HCl 1 gm/ Sodium (Chloride) 250 mls @ 166 mls/hr IV ONETIME ONE Stop: 03/01/18 10:10 Last Admin: 03/01/18 12:00 Dose: Not Given Ketorolac Tromethamine (Toradol) 30 mg IVPUSH ONETIME ONE Stop: 03/01/18 11:21 Last Admin: 03/01/18 13:34 Dose: Not Given Ketorolac Tromethamine (Toradol) 30 mg IVPUSH Q6H PRN PRN Reason: Pain (severe 7-10) Stop: 03/06/18 11:20 Lidocaine (Xylocaine-Mpf 2%) Confirm Administered Dose 5 ml .ROUTE .STK-MED ONE Stop: 03/01/18 08:58 Midazolam HCl (Versed 1 Mg/Ml) Confirm Administered Dose 2 mg .ROUTE .STK-MED ONE Stop: 03/01/18 08:58 Ondansetron HCl (Zofran) Confirm Administered Dose 4 mg .ROUTE .STK-MED ONE Stop: 03/01/18 08:58 Propofol (Diprivan 20 Ml) Confirm Administered Dose 200 mg .ROUTE .STK-MED ONE Stop: 03/01/18 08:58 Rocuronium [place] (Zemuron) Confirm Administered Dose 100 mg .ROUTE .STK-MED ONE Stop: 03/01/18 08:58 Scopolamine (Transderm-Scop) Confirm Administered Dose 1.5 mg .ROUTE .STK-MED ONE Stop: 03/01/18 08:15 Last Admin: 03/01/18 12:00 Dose: Not Given - Exam General: Reports: Alert, Oriented HEENT: Reports: Pupils Equal, Pupils Reactive, EOMI, Mucous Membr. Moist/[place]: Reports: Supple Lungs: Reports: Clear to Auscultation, Normal Respiratory Effort Cardiovascular: Reports: Regular Rate, Regular Rhythm GI/Abdominal Exam: Normal Bowel Sounds, Soft, Non-Tender, No Organomegaly, No Distention, No Abnormal Bruit, No Mass, Pelvis Stable (Female) Exam: Normal External Exam, Normal Speculum Exam, Normal Bimanual Exam Rectal (Female) Exam: Normal Exam, Normal Rectal Tone Back Exam: Reports: Normal Inspection, Full Range of Motion Extremities: Normal Inspection, Normal Range of Motion, Non-Tender, No Pedal Edema, Normal Capillary Refill Skin: Reports: Warm, Dry, Intact Wound/Incisions: Reports: Healing Well Neurological: Reports: No New Focal Deficit Psy/Mental Status: Reports: Alert, Normal Affect, Normal Mood
[2018-03-03] MEDS: Acetaminophen/oxyCODONE 325-5 MG Tab PO PRN (11:59)
== END 2018-03-03 16:00 | disposition home or self-care (01) ==
LOC: MW.SDS 07:21 → MW.MS 11:51 → MW.SDS 03-02 19:27
PROVIDERS: ADMIT Obstetrics & Gynecology; ATTEND Obstetrics & Gynecology
DX: N84.0 Polyp of corpus uteri (principal); D25.1 Intramural leiomyoma of uterus; N81.4 Uterovaginal prolapse, unspecified; N89.8 Other specified noninflammatory disorders of vagina; F41.9 Anxiety disorder, unspecified; F32.9 Major depressive disorder, single episode, unspecified; K21.9 Gastro-esophageal reflux disease without esophagitis; M10.9 Gout, unspecified; E78.5 Hyperlipidemia, unspecified; E03.9 Hypothyroidism, unspecified; I10 Essential (primary) hypertension; M19.90 Unspecified osteoarthritis, unspecified site; Z88.0 Allergy status to penicillin; Z88.8 Allergy status to other drugs, medicaments and biological substances; Z91.041 Radiographic dye allergy status; Z87.891 Personal history of nicotine dependence; Z79.82 Long term (current) use of aspirin; Z79.890 Hormone replacement therapy; Z79.899 Other long term (current) drug therapy
CPT/HCPCS: 36415; 51702; 57288; 58263; 80048; 85025; 85027; 86850; 86900; 86901; A9270; C1771; G0378; J1170; J1885; J1940; J2001; J2250; J2270; J2405; J2704; J3010; J3370; J7050; J7120; 00944; 88305; 88307

== ENCOUNTER 2018-09-02 02:42 | Observation (INO) | payer MEDICARE, OTHER ==
[2018-09-02] MEDS ORDERED: Sodium Chloride 0.9% 10 ML Syringe FLUSH PRN (03:00)
[2018-09-02] MEDS ORDERED: Sodium Chloride 0.9% 2.5 ML Syringe FLUSH PRN (03:00)
[2018-09-02] MEDS ORDERED: Sodium Chloride 0.9% 1,000 ML IV ONE (03:00)
--- NOTE | 2018-09-02 03:05 | EDM.PDOC ---
ED HPI GENERAL MEDICAL PROBLEM - General Chief Complaint: Gastrointestinal Problem Stated Complaint: COUGHING UP BLOOD Time Seen by Provider: 09/02/18 02:59 - History of Present Illness INITIAL COMMENTS - FREE TEXT/NARRATIVE: HISTORY AND PHYSICAL: History of present illness: Patient is 78-year-old female presents with concern abdominal pain and bloody diarrhea 1 day she's had some generalized weakness she denies chest pain shortness breath or other concern denies history of prior episodes denies bleeding diathesis Review of systems: As per history of present illness and below otherwise all systems reviewed and negative. Past medical history: As per history of present illness and as reviewed below otherwise noncontributory. Surgical history: As per history of present illness and as reviewed below otherwise noncontributory. Social history: No reported history of drug or alcohol abuse. Family history: As per history of present illness and as reviewed below otherwise noncontributory. Physical exam: HEENT: Atraumatic, normocephalic, pupils reactive, mild conjunctival pallor no scleral icterus, mucous membranes moist, throat clear, neck supple, nontender, trachea midline. Lungs: Clear to auscultation, breath sounds equal bilaterally, chest nontender. Heart: S1S2, regular, negative for clicks, rubs, or JVD. Abdomen: Soft, nondistended, nontender. Negative for masses or hepatosplenomegaly. Negative for costovertebral tenderness. Pelvis: Stable nontender. Genitourinary: Deferred. Rectal: Gross blood noted Extremities: Atraumatic, negative for cords or calf pain. Neurovascular unremarkable. Neuro: Awake, alert, oriented. Follows commands and moves all extremities limited grossly nonfocal exam. Diagnostics: CBC CMP troponin PT/INR chest x-ray lactic acid blood cultures [address] abdomen and pelvis Therapeutics: Saline 1 L bolus Impression: #1 abdominal pain #2 lower GI bleed Definitive disposition and diagnosis as appropriate pending reevaluation and review of above. Abdomen Pain Score (Numeric/FACES): 6 - Related Data Allergies Allergy/AdvReac Type Severity Reaction Status Date / Time adhesive Allergy Burning Verified 09/02/18 02:56 cephalexin [Cephalexin] Allergy Hives Verified 09/02/18 02:56 erythromycin lactobionate Allergy Agitation Verified 09/02/18 02:56 [From Erythrocin] iodine Allergy Difficulty Verified 09/02/18 02:56 Breathing Penicillins Allergy Hives Verified 09/02/18 02:56 pregabalin [From Lyrica] Allergy Other Verified 09/02/18 02:56 simvastatin Allergy Muscle Verified 09/02/18 02:56 Aches Home Meds: Home Meds Acetaminophen [Tylenol Extra Strength] 1,000 mg PO Q4H 01/21/14 [History] Aspirin [Idalia Chewable] 81 mg PO MOWEFR 01/21/14 [History] Calcium Carb &Cit/Magnesium Ox [Calmag Thins Tablet] 1 tab PO DAILY 01/21/14 [ History] Furosemide [Lasix] 20 mg PO QAM 01/21/14 [History] Ibuprofen 800 mg PO BEDTIME 01/21/14 [History] Levothyroxine [Synthroid] 88 mcg PO QAM 01/21/14 [History] Lutein/Zeaxanthin [Lutein-Zeaxanthin 25-5 mg Sfgl] 1 cap PO DAILY 01/21/14 [ History] Multivitamin [Multivitamins] 1 cap PO DAILY 01/21/14 [History] [place]-3 Fatty Acids/Fish Oil [Fish Oil 1,200 mg Softgel] 1,200 mg PO DAILY 01/21 [History] Omeprazole 40 mg PO QAM 01/21/14 [History] Pravastatin [Pravachol] 40 mg PO BID 01/21/14 [History] Ramipril [Altace] 10 mg PO DAILY 01/21/14 [History] Ubidecarenone [Co Q-10] 100 mg PO DAILY 01/21/14 [History] Vitamin B Complex [Super B-50 Complex] 1 cap PO DAILY 01/21/14 [History] predniSONE 5 mg PO ASDIRECTED 01/21/14 [History] traMADol [Ultram] 50 mg PO Q6H 01/21/14 [History] Ascorbic Acid [Vitamin C] 1,000 mg PO DAILY 02/27/18 [History] Cholecalciferol (Vitamin D3) [Vitamin D3] 2,000 mg PO DAILY 02/27/18 [History] Glucosam/Chond/Hyalu/Cf Borate [Move Free Joint Health Tablet] 1 tab PO DAILY [History] Nitrofurantoin Macrocrystal [Nitrofurantoin] 50 mg PO DAILY 02/27/18 [History] Vitamin E (Dl,Tocopheryl Acet) [Vitamin E] 200 unit PO DAILY 02/27/18 [History] Past Medical History HEENT History: Reports: Hard of Hearing, Macular Degeneration, Other (See Below) Other HEENT History: wears glasses, has upper permanent partial denture Cardiovascular History: Reports: Arrhythmia, High Cholesterol, Hypertension, Other (See Below) Other Cardiovascular History: states 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- took aspirin Respiratory History: Reports: Asthma Gastrointestinal History: Reports: GERD Genitourinary History: Reports: UTI, Recurrent CREATIVE ARTS THERAPIST History: Reports: Other CREATIVE ARTS THERAPIST History: 4 c sections and 1 secondary enclosure Musculoskeletal History: Reports: Arthritis, Fracture Other Musculoskeletal History: hx of fx left hand Endocrine/Metabolic History: Reports: Hypothyroidism Hematologic History: Reports: Blood Transfusion(s) - Past Surgical History Head Surgeries/Procedures: Reports: None HEENT Surgical History: Reports: Tonsillectomy GI Surgical History: Reports: Appendectomy Female Surgical History: Reports: Section Other Female Surgeries/Procedures: x4 Social & Family History - Family History Family Medical History: Noncontributory - Tobacco Use Smoking Status *Q: Former Smoker Used Tobacco, but Quit: Yes Month/Year Tobacco Last Used: 1995 - Recreational Drug Use Recreational Drug Use: No ED ROS GENERAL - Review of Systems Review Of Systems: ROS reveals no pertinent complaints other than HPI. ED EXAM, GENERAL - Physical Exam Exam: See Below (See dictation) Course - Vital Signs Last Recorded V/S: Last Vital Signs Temp 36.6 C 09/02/18 02:53 Pulse 94 09/02/18 03:26 Resp 18 09/02/18 02:53 BP 135/63 09/02/18 03:26 Pulse Ox 97 09/02/18 03:26 - Orders/Labs/Meds Orders: Active Orders 24 hr Category Date Time Status Cardiac Monitoring [RC] . DIRECTED Care 09/02/18 02:59 Active EKG Documentation Completion [RC] STAT Care 09/02/18 02:59 Active Pulse Oximetry [RC] ASDIRECTED Care 09/02/18 02:59 Active Abdomen Pelvis wo Cont [CT] Stat Exams 09/02/18 03:00 Taken Chest 1V Frontal [CR] Stat Exams 09/02/18 03:00 Taken CULTURE BLOOD [BC] Stat Lab 09/02/18 03:18 Received CULTURE BLOOD [BC] Stat Lab 09/02/18 03:25 Results TYPE AND SCREEN [BBK] Stat Lab 09/02/18 03:18 Received UA RFX LINK AND CULT IF INDIC [URIN] Stat Lab 09/02/18 03:00 Ordered Sodium Chloride 0.9% [Normal Saline] 1,000 ml Med 09/02/18 03:00 Active IV STAT Sodium Chloride 0.9% [Saline Flush] Med 09/02/18 03:00 Active 10 ml FLUSH ASDIRECTED PRN Sodium Chloride 0.9% [Saline Flush] Med 09/02/18 03:00 Active 2.5 ml FLUSH ASDIRECTED PRN Blood Culture x2 Reflex Set [OM.PC] Stat Oth 09/02/18 03:00 Ordered Saline Lock Insert [OM.PC] Stat Oth 09/02/18 02:59 Ordered Medication Orders Sodium Chloride (Normal Saline) 1,000 mls @ 999 mls/hr IV STAT ONE Stop: 09/02/18 04:00 Last Admin: 09/02/18 02:50 Dose: 999 mls/hr Sodium Chloride (Saline Flush) 10 ml FLUSH ASDIRECTED PRN PRN Reason: Keep Vein Open Last Admin: 09/02/18 03:07 Dose: 10 ml Sodium Chloride (Saline Flush) 2.5 ml FLUSH ASDIRECTED PRN PRN Reason: Keep Vein Open Last Admin: 09/02/18 03:07 Dose: 2.5 ml Labs: Laboratory Tests 09/02/18 09/02/18 09/02/18 Range/Units 02:50 02:50 02:50 WBC 8.29 (4.0-11.0) K/uL RBC 3.55 L (4.30-5.90) M/uL Hgb 12.7 (12.0-16.0) g/dL Hct 37.8 (36.0-46.0) % MCV 106.5 H (80.0-98.0) fL MCH 35.8 H (27.0-32.0) pg MCHC 33.6 (31.0-37.0) g/dL RDW Std Deviation 56.6 (28.0-62.0) fl RDW Coeff of Kristofer 15 (11.0-15.0) % Plt Count 235 (150-400) K/uL MPV 11.40 (7.40-12.00) fL Neut % (Auto) 90.7 H (48.0-80.0) % Lymph % (Auto) 2.5 L (16.0-40.0) % [place] % (Auto) 6.0 (0.0-15.0) % Eos % (Auto) 0.7 (0.0-7.0) % Baso % (Auto) 0.1 (0.0-1.5) % Neut # (Auto) 7.5 H (1.4-5.7) K/uL Lymph # (Auto) 0.2 L (0.6-2.4) K/uL [place] # (Auto) 0.5 (0.0-0.8) K/uL Eos # (Auto) 0.1 (0.0-0.7) K/uL Baso # (Auto) 0.0 (0.0-0.1) K/uL Nucleated RBC % 0.0 /100WBC Nucleated RBCs # 0 K/uL INR 0.95 ABG pH (7.35-7.45) ABG pCO2 (35-45) mmHG ABG pO2 (75-100) mmHG ABG HCO3 (22-26) mEq/L ABG Total CO2 ABG Base Excess (-2.0-2.0) Lactate (0.20-2.00) mmol/L Sodium 142 (136-145) mmol/L Potassium 3.6 (3.5-5.1) mmol/L Chloride 106 (98-107) mmol/L Carbon Dioxide 25.8 (21.0-32.0) mmol/L BUN 30 H (7.0-18.0) mg/dL Creatinine 1.2 H (0.6-1.0) mg/dL Est Cr Clr Drug Dosing 33.36 mL/min Estimated GFR (MDRD) 43.4 ml/min Glucose 167 H (74-106) mg/dL Calcium 9.2 (8.5-10.1) mg/dL Total Bilirubin 0.6 (0.2-1.0) mg/dL AST 34 (15-37) IU/L ALT 42 (14-63) IU/L Alkaline Phosphatase 52 (46-116) U/L Troponin I < 0.050 (0.000-0.056) ng/mL Total Protein 6.7 (6.4-8.2) g/dL Albumin 3.8 (3.4-5.0) g/dL Globulin 2.9 (2.6-4.0) g/dL Albumin/Globulin Ratio 1.3 (0.9-1.6) 09/02/18 09/02/18 Range/Units 02:50 03:31 WBC (4.0-11.0) K/uL RBC (4.30-5.90) M/uL Hgb (12.0-16.0) g/dL Hct (36.0-46.0) % MCV (80.0-98.0) fL MCH (27.0-32.0) pg MCHC (31.0-37.0) g/dL RDW Std Deviation (28.0-62.0) fl RDW Coeff of Kristofer (11.0-15.0) % Plt Count (150-400) K/uL MPV (7.40-12.00) fL Neut % (Auto) (48.0-80.0) % Lymph % (Auto) (16.0-40.0) % [place] % (Auto) (0.0-15.0) % Eos % (Auto) (0.0-7.0) % Baso % (Auto) (0.0-1.5) % Neut # (Auto) (1.4-5.7) K/uL Lymph # (Auto) (0.6-2.4) K/uL [place] # (Auto) (0.0-0.8) K/uL Eos # (Auto) (0.0-0.7) K/uL Baso # (Auto) (0.0-0.1) K/uL Nucleated RBC % /100WBC Nucleated RBCs # K/uL INR ABG pH 7.452 H (7.35-7.45) ABG pCO2 31 L (35-45) mmHG ABG pO2 63 L (75-100) mmHG ABG HCO3 22 (22-26) mEq/L ABG Total CO2 19.9 ABG Base Excess -1.5 (-2.0-2.0) Lactate 1.7 (0.20-2.00) mmol/L Sodium (136-145) mmol/L Potassium (3.5-5.1) mmol/L Chloride (98-107) mmol/L Carbon Dioxide (21.0-32.0) mmol/L BUN (7.0-18.0) mg/dL Creatinine (0.6-1.0) mg/dL Est Cr Clr Drug Dosing mL/min Estimated GFR (MDRD) ml/min Glucose (74-106) mg/dL Calcium (8.5-10.1) mg/dL Total Bilirubin (0.2-1.0) mg/dL AST (15-37) IU/L ALT (14-63) IU/L Alkaline Phosphatase (46-116) U/L Troponin I (0.000-0.056) ng/mL Total Protein (6.4-8.2) g/dL Albumin (3.4-5.0) g/dL Globulin (2.6-4.0) g/dL Albumin/Globulin Ratio (0.9-1.6) Meds: Medications Generic Name Dose Route Start Last Admin Trade Name Freq PRN Reason Stop Dose Admin Sodium Chloride 1,000 mls @ 999 mls/hr 09/02/18 03:00 09/02/18 02:50 Normal Saline IV 09/02/18 04:00 999 mls/hr STAT ONE Administration Sodium Chloride 10 ml 09/02/18 03:00 09/02/18 03:07 Saline Flush FLUSH 10 ml ASDIRECTED PRN Administration Keep Vein Open Sodium Chloride 2.5 ml 09/02/18 03:00 09/02/18 03:07 Saline Flush FLUSH 2.5 ml ASDIRECTED PRN Administration Keep Vein Open Departure - Departure Time of Disposition: 03:57 Disposition: Refer to Observation Condition: Good Clinical Impression: GI bleed, Abdominal pain - Discharge Information Forms: ED Department Discharge - My Orders Last 24 Hours: My Active Orders 09/02/18 02:59 Cardiac Monitoring [RC] . DIRECTED EKG Documentation Completion [RC] STAT Pulse Oximetry [RC] ASDIRECTED Saline Lock Insert [OM.PC] Stat 09/02/18 03:00 Abdomen Pelvis wo Cont [CT] Stat Chest 1V Frontal [CR] Stat UA RFX LINK AND CULT IF INDIC [URIN] Stat Sodium Chloride 0.9% [Normal Saline] 1,000 ml IV STAT Sodium Chloride 0.9% [Saline Flush] 10 ml FLUSH ASDIRECTED PRN Sodium Chloride 0.9% [Saline Flush] 2.5 ml FLUSH ASDIRECTED PRN Blood Culture x2 Reflex Set [OM.PC] Stat 09/02/18 03:18 CULTURE BLOOD [BC] Stat TYPE AND SCREEN [BBK] Stat 09/02/18 03:25 CULTURE BLOOD [BC] Stat - Assessment/Plan Last 24 Hours: My Active Orders 09/02/18 02:59 Cardiac Monitoring [RC] . DIRECTED EKG Documentation Completion [RC] STAT Pulse Oximetry [RC] ASDIRECTED Saline Lock Insert [OM.PC] Stat 09/02/18 03:00 Abdomen Pelvis wo Cont [CT] Stat Chest 1V Frontal [CR] Stat UA RFX LINK AND CULT IF INDIC [URIN] Stat Sodium Chloride 0.9% [Normal Saline] 1,000 ml IV STAT Sodium Chloride 0.9% [Saline Flush] 10 ml FLUSH ASDIRECTED PRN Sodium Chloride 0.9% [Saline Flush] 2.5 ml FLUSH ASDIRECTED PRN Blood Culture x2 Reflex Set [OM.PC] Stat 09/02/18 03:18 CULTURE BLOOD [BC] Stat TYPE AND SCREEN [BBK] Stat 09/02/18 03:25 CULTURE BLOOD [BC] Stat
[2018-09-02 03:22] LABS: BLOOD UREA NITROGEN,BUN 30 mg/dL (7.0-18.0); CARBON DIOXIDE,CO2 25.8 mmol/L (21.0-32.0); CHLORIDE,CL 106 mmol/L (98-107); GLUCOSE RANDOM 167 mg/dL (74-106); POTASSIUM,K 3.6 mmol/L (3.5-5.1); SODIUM,NA 142 mmol/L (136-145)
--- NOTE | 2018-09-02 04:26 | CT ---
INDICATION: Chest/abdominal pain. TECHNIQUE: Nonenhanced volumetric CT scan of the abdomen/pelvis. COMPARISON: May 06, 2010. FINDINGS: Stable appearance of lower chest including an linear scarring in the right greater than left lung base. There is no pleural/pericardial fluid accumulation. Liver, spleen, adrenal glands, and pancreas have a is stable unremarkable nonenhanced CT appearance. Right kidney is unremarkable. 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 This involves most of the left abdomen, displacing bowel loops, except for descending colon which is displaced laterally, and may be mildly edematous. Mild diverticulosis of sigmoid colon. No radiographic evidence of diverticulitis. Distended urinary bladder. Gallbladder is present. There is no biliary enlargement. No radiodense calculi identified. No evidence of abdominal aortic aneurysm. No retroperitoneal adenopathy. No acute/aggressive osseous lesions. 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 Consider liposarcoma or similar lesion. Again, this occupies most of the left abdomen. Mild nonspecific colitis of the descending colon is possibility as there is mild stranding. No subdiaphragmatic free air/evidence perforation. Moderate distention of urinary bladder. Please note that all CT scans at this facility use dose modulation, iterative reconstruction, and/or weight-based dosing when appropriate to reduce radiation dose to as low as reasonably achievable. Dictated by Jc Bartholomew MD @ Sep 02 2018 4:05AM Signed by Dr. Jc Bartholomew @ Sep 02 2018 4:24AM
--- NOTE | 2018-09-02 04:27 | CR ---
INDICATION: Chest, abdomen pain. COMPARISON: 04/10/2012. FINDINGS: Heart size upper normal. No mediastinal widening. Lungs are clear, as visualized on single portable AP view. Pulmonary vessels not enlarged. Osseous structures unremarkable. IMPRESSION: Diminished level of inspiration. Otherwise no significant change since 04/10/2012. Dictated by Jc Bartholomew MD @ Sep 02 2018 4:24AM Signed by Dr. Jc Bartholomew @ Sep 02 2018 4:26AM
--- NOTE | 2018-09-02 07:43 | PCM.HP ---
H&P History of Present Illness - General Date of Service: 09/02/18 Admit Problem/Dx: Admission Diagnosis/Problem Admission Diagnosis/Problem Abdominal pain Source of Information: Patient History Limitations: Reports: No Limitations - History of Present Illness Initial Comments - Free Text/Narative: The patient is a 78-year-old lady who had presented to the emergency department with a complaint of bloody diarrhea 1 day. Patient also has some generalized weakness associated with this along with some dizziness and lightheadedness. Patient's abdominal pain is located predominantly in the left lower quadrant and does not radiate. The patient has denied any fever or chills. No specific aggravating or relieving factors for her abdominal pain. 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 There is also some perinephric stranding. Onset of Symptoms: Reports: Sudden Duration of Symptoms: Reports: Day(s):, Getting Worse Location: Reports: Abdomen Quality: Reports: Stabbing, Throbbing Severity: Moderate Improves with: Reports: None Worsens with: Reports: None Associated Symptoms: Reports: Nausea/Vomiting Abdomen Pain Score (Numeric/FACES): 6 - Related Data Allergies/Adverse Reactions: Allergies Allergy/AdvReac Type Severity Reaction Status Date / Time adhesive Allergy Burning Verified 09/02/18 09:27 cephalexin [Cephalexin] Allergy Hives Verified 09/02/18 09:27 erythromycin lactobionate Allergy Agitation Verified 09/02/18 09:27 [From Erythrocin] iodine Allergy Difficulty Verified 09/02/18 09:27 Breathing Penicillins Allergy Hives Verified 09/02/18 09:27 pregabalin [From Lyrica] Allergy Other Verified 09/02/18 09:27 simvastatin Allergy Muscle Verified 09/02/18 09:27 Aches Home Medications: Home Meds Acetaminophen [Tylenol Extra Strength] 1,000 mg PO Q4H 01/21/14 [History] Aspirin [Idalia Chewable] 81 mg PO MOWEFR 01/21/14 [History] Calcium Carb &Cit/Magnesium Ox [Calmag Thins Tablet] 1 tab PO DAILY 01/21/14 [ History] Furosemide [Lasix] 20 mg PO QAM 01/21/14 [History] Ibuprofen 800 mg PO BEDTIME 01/21/14 [History] Levothyroxine [Synthroid] 88 mcg PO QAM 01/21/14 [History] Lutein/Zeaxanthin [Lutein-Zeaxanthin 25-5 mg Sfgl] 1 cap PO DAILY 01/21/14 [ History] Multivitamin [Multivitamins] 1 cap PO DAILY 01/21/14 [History] Poth-3 Fatty Acids/Fish Oil [Fish Oil 1,200 mg Softgel] 1,200 mg PO DAILY 01/21 [History] Omeprazole 40 mg PO QAM 01/21/14 [History] Pravastatin [Pravachol] 40 mg PO DAILY 01/21/14 [History] Ramipril [Altace] 10 mg PO DAILY 01/21/14 [History] Ubidecarenone [Co Q-10] 100 mg PO DAILY 01/21/14 [History] Vitamin B Complex [Super B-50 Complex] 1 cap PO DAILY 01/21/14 [History] predniSONE 5 mg PO ASDIRECTED 01/21/14 [History] traMADol [Ultram] 50 mg PO Q6H 01/21/14 [History] Cholecalciferol (Vitamin D3) [Vitamin D3] 2,000 mg PO DAILY 02/27/18 [History] Glucosam/Chond/Hyalu/Cf Borate [Move Free Joint Health Tablet] 1 tab PO DAILY [History] Nitrofurantoin Macrocrystal [Nitrofurantoin] 50 mg PO DAILY 02/27/18 [History] Vitamin E (Dl,Tocopheryl Acet) [Vitamin E] 200 unit PO DAILY 02/27/18 [History] Ascorbic Acid [Vitamin C] 1 tab PO DAILY 09/02/18 [History] Non-Formulary Medication [NF Drug] 50 mg PO 09/02/18 [History] Past Medical History HEENT History: Reports: Hard of Hearing, Macular Degeneration, Other (See Below) Other HEENT History: wears glasses, has upper permanent partial denture Cardiovascular History: Reports: Arrhythmia, High Cholesterol, Hypertension, Other (See Below) Other Cardiovascular History: states 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- took aspirin Respiratory History: Reports: Asthma Gastrointestinal History: Reports: GERD Genitourinary History: Reports: UTI, Recurrent 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 OB/BYN History: 4 c sections and 1 secondary enclosure Musculoskeletal History: Reports: Arthritis, Fracture Other Musculoskeletal History: hx of fx left hand Neurological History: Reports: None Psychiatric History: Reports: None Endocrine/Metabolic History: Reports: Hypothyroidism Hematologic History: Reports: Blood Transfusion(s) Immunologic History: Reports: None Oncologic (Cancer) History: Reports: None Dermatologic History: Reports: None - Past Surgical History Head Surgeries/Procedures: Reports: None HEENT Surgical History: Reports: Tonsillectomy GI Surgical History: Reports: Appendectomy Female Surgical History: Reports: Section Other Female Surgeries/Procedures: x4 Social & Family History - Family History Family Medical History: Noncontributory - Tobacco Use Smoking Status *Q: Former Smoker Used Tobacco, but Quit: Yes Month/Year Tobacco Last Used: 1995 - Caffeine Use Caffeine Use: Reports: Coffee - Recreational Drug Use Recreational Drug Use: No - Living Situation & Occupation Living situation: Reports: , with Spouse Occupation: Retired H&P Review of Systems - Review of Systems: Review Of Systems: See Below General: Reports: Weakness, Fatigue HEENT: Reports: No Symptoms Pulmonary: Reports: No Symptoms Cardiovascular: Reports: No Symptoms Gastrointestinal: Reports: Abdominal Pain (Predominantly left lower quadrant), Anorexia, Hematochezia, Nausea, Vomiting Genitourinary: Reports: No Symptoms Musculoskeletal: Reports: No Symptoms Skin: Reports: No Symptoms Psychiatric: Reports: No Symptoms Neurological: Reports: No Symptoms Hematologic/Lymphatic: Reports: No Symptoms Immunologic: Reports: No Symptoms Exam - Exam Exam: See Below - Vital Signs Vital Signs: Last Vital Signs Temp 37.0 C 09/02/18 06:04 Pulse 83 09/02/18 06:04 Resp 16 09/02/18 06:04 BP 108/48 L 09/02/18 06:04 Pulse Ox 98 09/02/18 06:04 Weight: 72.484 kg - Exam Quality Assessment: No: Supplemental Oxygen General: Alert, Oriented, Cooperative, Mild Distress HEENT: Conjunctiva Clear, EACs Clear, EOMI, Nares Patent, Pupils Equal, PERRLA. No: Mucosa Moist & [place] (Dry) Neck: Supple, Trachea Midline Lungs: Clear to Auscultation, Normal Respiratory Effort Cardiovascular: Regular Rhythm, Tachycardia, Systolic Murmur (36) GI/Abdominal Exam: Normal Bowel Sounds, Soft, No Distention, Tender (Right lower quadrant) Back Exam: Normal Inspection Extremities: Normal Inspection, No Pedal Edema Skin: Warm, Dry, Intact Neurological: Cranial Nerves Intact Neuro Extensive - Mental Status: Alert, Oriented x3 Psychiatric: Alert, Normal Affect, Normal Mood - Patient Data Lab Results Last 24 hrs: Laboratory Results - last 24 hr 09/02/18 09/02/18 09/02/18 Range/Units 02:50 02:50 02:50 WBC 8.29 (4.0-11.0) K/uL RBC 3.55 L (4.30-5.90) M/uL Hgb 12.7 (12.0-16.0) g/dL Hct 37.8 (36.0-46.0) % MCV 106.5 H (80.0-98.0) fL MCH 35.8 H (27.0-32.0) pg MCHC 33.6 (31.0-37.0) g/dL RDW Std Deviation 56.6 (28.0-62.0) fl RDW Coeff of [place] 15 (11.0-15.0) % Plt Count 235 (150-400) K/uL MPV 11.40 (7.40-12.00) fL Neut % (Auto) 90.7 H (48.0-80.0) % Lymph % (Auto) 2.5 L (16.0-40.0) % [place] % (Auto) 6.0 (0.0-15.0) % Eos % (Auto) 0.7 (0.0-7.0) % Baso % (Auto) 0.1 (0.0-1.5) % Neut # (Auto) 7.5 H (1.4-5.7) K/uL Lymph # (Auto) 0.2 L (0.6-2.4) K/uL [place] # (Auto) 0.5 (0.0-0.8) K/uL Eos # (Auto) 0.1 (0.0-0.7) K/uL Baso # (Auto) 0.0 (0.0-0.1) K/uL Nucleated RBC % 0.0 /100WBC Nucleated RBCs # 0 K/uL INR 0.95 ABG pH (7.35-7.45) ABG pCO2 (35-45) mmHG ABG pO2 (75-100) mmHG ABG HCO3 (22-26) mEq/L ABG Total CO2 ABG Base Excess (-2.0-2.0) Lactate (0.20-2.00) mmol/L Sodium 142 (136-145) mmol/L Potassium 3.6 (3.5-5.1) mmol/L Chloride 106 (98-107) mmol/L Carbon Dioxide 25.8 (21.0-32.0) mmol/L BUN 30 H (7.0-18.0) mg/dL Creatinine 1.2 H (0.6-1.0) mg/dL Est Cr Clr Drug Dosing 33.36 mL/min Estimated GFR (MDRD) 43.4 ml/min Glucose 167 H (74-106) mg/dL Calcium 9.2 (8.5-10.1) mg/dL Total Bilirubin 0.6 (0.2-1.0) mg/dL AST 34 (15-37) IU/L ALT 42 (14-63) IU/L Alkaline Phosphatase 52 (46-116) U/L Troponin I < 0.050 (0.000-0.056) ng/mL Total Protein 6.7 (6.4-8.2) g/dL Albumin 3.8 (3.4-5.0) g/dL Globulin 2.9 (2.6-4.0) g/dL Albumin/Globulin Ratio 1.3 (0.9-1.6) Urine Color Urine Appearance Urine pH (5.0-8.0) Ur Specific [place] (1.001-1.035) Urine Protein (NEGATIVE) mg/dL Urine Glucose (UA) (NEGATIVE) mg/dL Urine Ketones (NEGATIVE) mg/dL Urine Occult Blood (NEGATIVE) Urine Nitrite (NEGATIVE) Urine Bilirubin (NEGATIVE) Urine Urobilinogen (<2.0) EU/dL Ur Leukocyte Esterase (NEGATIVE) Blood Type Antibody Screen 09/02/18 09/02/18 09/02/18 Range/Units 02:50 03:18 03:31 WBC (4.0-11.0) K/uL RBC (4.30-5.90) M/uL Hgb (12.0-16.0) g/dL Hct (36.0-46.0) % MCV (80.0-98.0) fL MCH (27.0-32.0) pg MCHC (31.0-37.0) g/dL RDW Std Deviation (28.0-62.0) fl RDW Coeff of [place] (11.0-15.0) % Plt Count (150-400) K/uL MPV (7.40-12.00) fL Neut % (Auto) (48.0-80.0) % Lymph % (Auto) (16.0-40.0) % [place] % (Auto) (0.0-15.0) % Eos % (Auto) (0.0-7.0) % Baso % (Auto) (0.0-1.5) % Neut # (Auto) (1.4-5.7) K/uL Lymph # (Auto) (0.6-2.4) K/uL [place] # (Auto) (0.0-0.8) K/uL Eos # (Auto) (0.0-0.7) K/uL Baso # (Auto) (0.0-0.1) K/uL Nucleated RBC % /100WBC Nucleated RBCs # K/uL INR ABG pH 7.452 H (7.35-7.45) ABG pCO2 31 L (35-45) mmHG ABG pO2 63 L (75-100) mmHG ABG HCO3 22 (22-26) mEq/L ABG Total CO2 19.9 ABG Base Excess -1.5 (-2.0-2.0) Lactate 1.7 (0.20-2.00) mmol/L Sodium (136-145) mmol/L Potassium (3.5-5.1) mmol/L Chloride (98-107) mmol/L Carbon Dioxide (21.0-32.0) mmol/L BUN (7.0-18.0) mg/dL Creatinine (0.6-1.0) mg/dL Est Cr Clr Drug Dosing mL/min Estimated GFR (MDRD) ml/min Glucose (74-106) mg/dL Calcium (8.5-10.1) mg/dL Total Bilirubin (0.2-1.0) mg/dL AST (15-37) IU/L ALT (14-63) IU/L Alkaline Phosphatase (46-116) U/L Troponin I (0.000-0.056) ng/mL Total Protein (6.4-8.2) g/dL Albumin (3.4-5.0) g/dL Globulin (2.6-4.0) g/dL Albumin/Globulin Ratio (0.9-1.6) Urine Color Urine Appearance Urine pH (5.0-8.0) Ur Specific [place] (1.001-1.035) Urine Protein (NEGATIVE) mg/dL Urine Glucose (UA) (NEGATIVE) mg/dL Urine Ketones (NEGATIVE) mg/dL Urine Occult Blood (NEGATIVE) Urine Nitrite (NEGATIVE) Urine Bilirubin (NEGATIVE) Urine Urobilinogen (<2.0) EU/dL Ur Leukocyte Esterase (NEGATIVE) Blood Type A POSITIVE Antibody Screen NEGATIVE 09/02/18 Range/Units 05:20 WBC (4.0-11.0) K/uL RBC (4.30-5.90) M/uL Hgb (12.0-16.0) g/dL Hct (36.0-46.0) % MCV (80.0-98.0) fL MCH (27.0-32.0) pg MCHC (31.0-37.0) g/dL RDW Std Deviation (28.0-62.0) fl RDW Coeff of [place] (11.0-15.0) % Plt Count (150-400) K/uL MPV (7.40-12.00) fL Neut % (Auto) (48.0-80.0) % Lymph % (Auto) (16.0-40.0) % [place] % (Auto) (0.0-15.0) % Eos % (Auto) (0.0-7.0) % Baso % (Auto) (0.0-1.5) % Neut # (Auto) (1.4-5.7) K/uL Lymph # (Auto) (0.6-2.4) K/uL [place] # (Auto) (0.0-0.8) K/uL Eos # (Auto) (0.0-0.7) K/uL Baso # (Auto) (0.0-0.1) K/uL Nucleated RBC % /100WBC Nucleated RBCs # K/uL INR ABG pH (7.35-7.45) ABG pCO2 (35-45) mmHG ABG pO2 (75-100) mmHG ABG HCO3 (22-26) mEq/L ABG Total CO2 ABG Base Excess (-2.0-2.0) Lactate (0.20-2.00) mmol/L Sodium (136-145) mmol/L Potassium (3.5-5.1) mmol/L Chloride (98-107) mmol/L Carbon Dioxide (21.0-32.0) mmol/L BUN (7.0-18.0) mg/dL Creatinine (0.6-1.0) mg/dL Est Cr Clr Drug Dosing mL/min Estimated GFR (MDRD) ml/min Glucose (74-106) mg/dL Calcium (8.5-10.1) mg/dL Total Bilirubin (0.2-1.0) mg/dL AST (15-37) IU/L ALT (14-63) IU/L Alkaline Phosphatase (46-116) U/L Troponin I (0.000-0.056) ng/mL Total Protein (6.4-8.2) g/dL Albumin (3.4-5.0) g/dL Globulin (2.6-4.0) g/dL Albumin/Globulin Ratio (0.9-1.6) Urine Color YELLOW Urine Appearance CLEAR Urine pH 6.0 (5.0-8.0) Ur Specific [place] 1.010 (1.001-1.035) Urine Protein NEGATIVE (NEGATIVE) mg/dL Urine Glucose (UA) NEGATIVE (NEGATIVE) mg/dL Urine Ketones NEGATIVE (NEGATIVE) mg/dL Urine Occult Blood NEGATIVE (NEGATIVE) Urine Nitrite NEGATIVE (NEGATIVE) Urine Bilirubin NEGATIVE (NEGATIVE) Urine Urobilinogen 0.2 (<2.0) EU/dL Ur Leukocyte Esterase NEGATIVE (NEGATIVE) Blood Type Antibody Screen Result Diagrams: 09/02/18 09:12 09/02/18 02:50 Sea Results Last 24 hrs: Microbiology 09/02/18 03:25 Anaerobic Blood Culture - Final Blood - Venous - Lab Draw - Problem List (1) GI bleed SNOMED Code(s): 07001287 ICD Code: K92.2 - GASTROINTESTINAL HEMORRHAGE, UNSPECIFIED Status: Acute Priority: High Current Visit: Yes Qualifiers: GI bleed type/associated pathology: anorectal hemorrhage Qualified Code(s) : K62.5 - Hemorrhage of anus and rectum (2) Abdominal pain SNOMED Code(s): 23106551 ICD Code: R10.9 - UNSPECIFIED ABDOMINAL PAIN Status: Acute Priority: High Current Visit: Yes (3) Intraabdominal mass SNOMED Code(s): 844880934 ICD Code: R19.00 - INTRA-ABD AND PELVIC SWELLING, MASS AND LUMP, UNSP SITE Status: Acute Priority: High Current Visit: Yes Problem Details: 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 DIRECTED Care 09/02/18 02:59 Active Telemetry Monitoring [Cardiac Monitoring] [RC] Q8H Care 09/02/18 05:55 Active Clear Liquid Diet [DIET] Diet 09/02/18 Breakfast Active CULTURE BLOOD [BC] Stat Lab 09/02/18 03:18 Received CULTURE BLOOD [BC] Stat Lab 09/02/18 03:25 Results HEMOGLOBIN/HEMATOCRIT,HH [HEME] Q6H Lab 09/02/18 09:00 Ordered HEMOGLOBIN/HEMATOCRIT,HH [HEME] Q6H Lab 09/02/18 15:00 Ordered HEMOGLOBIN/HEMATOCRIT,HH [HEME] Q6H Lab 09/02/18 21:00 Ordered Sodium Chloride 0.9% [Saline Flush] Med 09/02/18 03:00 Active 10 ml FLUSH ASDIRECTED PRN Sodium Chloride 0.9% [Saline Flush] Med 09/02/18 03:00 Active 2.5 ml FLUSH ASDIRECTED PRN Blood Culture x2 Reflex Set [OM.PC] Stat Oth 09/02/18 03:00 Ordered Saline Lock Insert [OM.PC] Stat Oth 09/02/18 02:59 Ordered Medication Orders Sodium Chloride (Saline Flush) 10 ml FLUSH ASDIRECTED PRN PRN Reason: Keep Vein Open Last Admin: 09/02/18 03:07 Dose: 10 ml Sodium Chloride (Saline Flush) 2.5 ml FLUSH ASDIRECTED PRN PRN Reason: Keep Vein Open Last Admin: 09/02/18 03:07 Dose: 2.5 ml Assessment/Plan Comment:: The patient is a 78-year-old lady who presented predominantly out of concern for abdominal pain and rectal bleeding. This appears to be low-volume bleed. I' ve ordered serial H&H every 6 hours. The patient will be kept on clear liquid diet for now. 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 The patient does have a rather large mass in the left side of her abdomen which is concerning for malignancy. The patient and her decided to stay here and consider options later. I've consulted surgeon. I've ordered repeat laboratory studies for the morning. The patient may be appropriate for discharge in 1-2 days. Further disposition will be dependent upon decision for investigation of mass.
[2018-09-02] MEDS: traMADol 50 MG Tab PO SCH ×2 (09:02→13:15)
[2018-09-02] MEDS: Furosemide 20 MG Tab PO SCH (09:02)
[2018-09-02] MEDS: Levothyroxine 88 MCG Tab PO SCH (09:19)
[2018-09-02] MEDS: Omeprazole 20 MG Cap.CR PO SCH (09:21)
[2018-09-02] MEDS: predniSONE 5 MG Tab PO SCH (09:21)
[2018-09-02] MEDS: Beta-Carotene (Vitamin A) w/Vitamin C & E plus Minerals Tab PO SCH (09:53)
[2018-09-02] MEDS: Sodium Chloride 0.9% 1,000 ML IV SCH ×2 (11:17→23:43)
--- NOTE | 2018-09-02 11:30 | PCM.CONS ---
H&P History of Present Illness - General Date of Service: 09/02/18 Admit Problem/Dx: Admission Diagnosis/Problem Admission Diagnosis/Problem Abdominal pain Source of Information: Patient History Limitations: Reports: No Limitations - History of Present Illness Initial Comments - Free Text/Narative: Patient is a 78 year old female who presents with LLQ pain and BRBPR. This started ~ 1-2 days ago. She was having loose frequent bowel movements then noticed bright red blood with the last one. She has never had a colonoscopy. She states that her mother had "cancer of the small intestines". She has noticed some pain in her sacrum over the last several months. She denies infectious contacts. She denies fevers or chills but complains of some weakness. She has "indigestion" but takes omeprazole for this. VS were stable on admission. Her abdominal exam was benign. Her WBC was normal but she had a predominance of neutrophils (90%). Her hemoglobin was 12.7. Her repeat check was 11.7. Her BUN/Cr was 30/1.2. 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 There is questionable mild edema of the descending colon. There is no evidence of colonic obstruction. There is diverticulosis with no evidence of diverticulitis. There is some left perinephric stranding. Abdomen Pain Score (Numeric/FACES): 6 - Related Data Allergies/Adverse Reactions: Allergies Allergy/AdvReac Type Severity Reaction Status Date / Time adhesive Allergy Burning Verified 09/02/18 09:27 cephalexin [Cephalexin] Allergy Hives Verified 09/02/18 09:27 erythromycin lactobionate Allergy Agitation Verified 09/02/18 09:27 [From Erythrocin] iodine Allergy Difficulty Verified 09/02/18 09:27 Breathing Penicillins Allergy Hives Verified 09/02/18 09:27 pregabalin [From Lyrica] Allergy Other Verified 09/02/18 09:27 simvastatin Allergy Muscle Verified 09/02/18 09:27 Aches Home Medications: Home Meds Acetaminophen [Tylenol Extra Strength] 1,000 mg PO Q4H 01/21/14 [History] Aspirin [Idalia Chewable] 81 mg PO MOWEFR 01/21/14 [History] Calcium Carb &Cit/Magnesium Ox [Calmag Thins Tablet] 1 tab PO DAILY 01/21/14 [ History] Furosemide [Lasix] 20 mg PO QAM 01/21/14 [History] Ibuprofen 800 mg PO BEDTIME 01/21/14 [History] Levothyroxine [Synthroid] 88 mcg PO QAM 01/21/14 [History] Lutein/Zeaxanthin [Lutein-Zeaxanthin 25-5 mg Sfgl] 1 cap PO DAILY 01/21/14 [ History] Multivitamin [Multivitamins] 1 cap PO DAILY 01/21/14 [History] [place]-3 Fatty Acids/Fish Oil [Fish Oil 1,200 mg Softgel] 1,200 mg PO DAILY 01/21 [History] Omeprazole 40 mg PO QAM 01/21/14 [History] Pravastatin [Pravachol] 40 mg PO DAILY 01/21/14 [History] Ramipril [Altace] 10 mg PO DAILY 01/21/14 [History] Ubidecarenone [Co Q-10] 100 mg PO DAILY 01/21/14 [History] Vitamin B Complex [Super B-50 Complex] 1 cap PO DAILY 01/21/14 [History] predniSONE 5 mg PO ASDIRECTED 01/21/14 [History] traMADol [Ultram] 50 mg PO Q6H 01/21/14 [History] Cholecalciferol (Vitamin D3) [Vitamin D3] 2,000 mg PO DAILY 02/27/18 [History] Glucosam/Chond/Hyalu/Cf Borate [Move Free Joint Health Tablet] 1 tab PO DAILY [History] Nitrofurantoin Macrocrystal [Nitrofurantoin] 50 mg PO DAILY 02/27/18 [History] Vitamin E (Dl,Tocopheryl Acet) [Vitamin E] 200 unit PO DAILY 02/27/18 [History] Ascorbic Acid [Vitamin C] 1 tab PO DAILY 09/02/18 [History] Non-Formulary Medication [NF Drug] 50 mg PO 09/02/18 [History] Past Medical History HEENT History: Reports: Hard of Hearing, Macular Degeneration, Other (See Below) Other HEENT History: wears glasses, has upper permanent partial denture Cardiovascular History: Reports: Arrhythmia, High Cholesterol, Hypertension, Other (See Below) Other Cardiovascular History: states 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- took aspirin Respiratory History: Reports: Asthma Gastrointestinal History: Reports: GERD Genitourinary History: Reports: UTI, 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 OB/BYN History: 4 c sections and 1 secondary enclosure Musculoskeletal History: Reports: Arthritis, Fracture Other Musculoskeletal History: hx of fx left hand Neurological History: Reports: None Psychiatric History: Reports: None Endocrine/Metabolic History: Reports: Hypothyroidism Hematologic History: Reports: Blood Transfusion(s) Immunologic History: Reports: None Oncologic (Cancer) History: Reports: None Dermatologic History: Reports: None - Past Surgical History Head Surgeries/Procedures: Reports: None HEENT Surgical History: Reports: Tonsillectomy Cardiovascular Surgical History: Reports: Cardiac Ablation, Other (See Below) ( Foramen ovale closure) GI Surgical History: Reports: Appendectomy Female Surgical History: Reports: Section Other Female Surgeries/Procedures: x4 Social & Family History - Family History Family Medical History: Noncontributory - Tobacco Use Smoking Status *Q: Former Smoker Used Tobacco, but Quit: Yes Month/Year Tobacco Last Used: 1995 - Caffeine Use Caffeine Use: Reports: Coffee - Recreational Drug Use Recreational Drug Use: No - Living Situation & Occupation Living situation: Reports: , with Spouse Occupation: Retired H&P Review of Systems - Review of Systems: Review Of Systems: ROS reveals no pertinent complaints other than HPI. Exam - Exam Exam: See Below - Vital Signs Vital Signs: Last Vital Signs Temp 36.9 C 09/02/18 08:03 Pulse 82 09/02/18 08:03 Resp 16 09/02/18 08:03 BP 119/56 L 09/02/18 09:20 Pulse Ox 98 09/02/18 08:03 Weight: 72.484 kg - Exam General: Alert, Oriented HEENT: Conjunctiva Clear, Mucosa Moist & [place], Posterior Pharynx Clear Neck: Supple, Trachea Midline Lungs: Clear to Auscultation, Normal Respiratory Effort Cardiovascular: Regular Rate, Regular Rhythm GI/Abdominal Exam: Soft, Non-Tender, No Distention, No Mass Rectal (Female) Exam: Normal Exam, Normal Rectal Tone Back Exam: Normal Inspection, Full Range of Motion Extremities: Normal Inspection - Patient Data Lab Results Last 24 hrs: Laboratory Results - last 24 hr 07/28/19 07/28/19 07/28/19 Range/Units 02:50 02:50 02:50 WBC 8.29 (4.0-11.0) K/uL RBC 3.55 L (4.30-5.90) M/uL Hgb 12.7 (12.0-16.0) g/dL Hct 37.8 (36.0-46.0) % MCV 106.5 H (80.0-98.0) fL MCH 35.8 H (27.0-32.0) pg MCHC 33.6 (31.0-37.0) g/dL RDW Std Deviation 56.6 (28.0-62.0) fl RDW Coeff of Kristofer 15 (11.0-15.0) % Plt Count 235 (150-400) K/uL MPV 11.40 (7.40-12.00) fL Neut % (Auto) 90.7 H (48.0-80.0) % Lymph % (Auto) 2.5 L (16.0-40.0) % [place] % (Auto) 6.0 (0.0-15.0) % Eos % (Auto) 0.7 (0.0-7.0) % Baso % (Auto) 0.1 (0.0-1.5) % Neut # (Auto) 7.5 H (1.4-5.7) K/uL Lymph # (Auto) 0.2 L (0.6-2.4) K/uL [place] # (Auto) 0.5 (0.0-0.8) K/uL Eos # (Auto) 0.1 (0.0-0.7) K/uL Baso # (Auto) 0.0 (0.0-0.1) K/uL Nucleated RBC % 0.0 /100WBC Nucleated RBCs # 0 K/uL INR 0.95 ABG pH (7.35-7.45) ABG pCO2 (35-45) mmHG ABG pO2 (75-100) mmHG ABG HCO3 (22-26) mEq/L ABG Total CO2 ABG Base Excess (-2.0-2.0) Lactate (0.20-2.00) mmol/L Sodium 142 (136-145) mmol/L Potassium 3.6 (3.5-5.1) mmol/L Chloride 106 (98-107) mmol/L Carbon Dioxide 25.8 (21.0-32.0) mmol/L BUN 30 H (7.0-18.0) mg/dL Creatinine 1.2 H (0.6-1.0) mg/dL Est Cr Clr Drug Dosing 33.36 mL/min Estimated GFR (MDRD) 43.4 ml/min Glucose 167 H (74-106) mg/dL Calcium 9.2 (8.5-10.1) mg/dL Total Bilirubin 0.6 (0.2-1.0) mg/dL AST 34 (15-37) IU/L ALT 42 (14-63) IU/L Alkaline Phosphatase 52 (46-116) U/L Troponin I < 0.050 (0.000-0.056) ng/mL Total Protein 6.7 (6.4-8.2) g/dL Albumin 3.8 (3.4-5.0) g/dL Globulin 2.9 (2.6-4.0) g/dL Albumin/Globulin Ratio 1.3 (0.9-1.6) Urine Color Urine Appearance Urine pH (5.0-8.0) Ur Specific [place] (1.001-1.035) Urine Protein (NEGATIVE) mg/dL Urine Glucose (UA) (NEGATIVE) mg/dL Urine Ketones (NEGATIVE) mg/dL Urine Occult Blood (NEGATIVE) Urine Nitrite (NEGATIVE) Urine Bilirubin (NEGATIVE) Urine Urobilinogen (<2.0) EU/dL Ur Leukocyte Esterase (NEGATIVE) Blood Type Antibody Screen 09/02/18 09/02/18 09/02/18 Range/Units 02:50 03:18 03:31 WBC (4.0-11.0) K/uL RBC (4.30-5.90) M/uL Hgb (12.0-16.0) g/dL Hct (36.0-46.0) % MCV (80.0-98.0) fL MCH (27.0-32.0) pg MCHC (31.0-37.0) g/dL RDW Std Deviation (28.0-62.0) fl RDW Coeff of Kristofer (11.0-15.0) % Plt Count (150-400) K/uL MPV (7.40-12.00) fL Neut % (Auto) (48.0-80.0) % Lymph % (Auto) (16.0-40.0) % [place] % (Auto) (0.0-15.0) % Eos % (Auto) (0.0-7.0) % Baso % (Auto) (0.0-1.5) % Neut # (Auto) (1.4-5.7) K/uL Lymph # (Auto) (0.6-2.4) K/uL [place] # (Auto) (0.0-0.8) K/uL Eos # (Auto) (0.0-0.7) K/uL Baso # (Auto) (0.0-0.1) K/uL Nucleated RBC % /100WBC Nucleated RBCs # K/uL INR ABG pH 7.452 H (7.35-7.45) ABG pCO2 31 L (35-45) mmHG ABG pO2 63 L (75-100) mmHG ABG HCO3 22 (22-26) mEq/L ABG Total CO2 19.9 ABG Base Excess -1.5 (-2.0-2.0) Lactate 1.7 (0.20-2.00) mmol/L Sodium (136-145) mmol/L Potassium (3.5-5.1) mmol/L Chloride (98-107) mmol/L Carbon Dioxide (21.0-32.0) mmol/L BUN (7.0-18.0) mg/dL Creatinine (0.6-1.0) mg/dL Est Cr Clr Drug Dosing mL/min Estimated GFR (MDRD) ml/min Glucose (74-106) mg/dL Calcium (8.5-10.1) mg/dL Total Bilirubin (0.2-1.0) mg/dL AST (15-37) IU/L ALT (14-63) IU/L Alkaline Phosphatase (46-116) U/L Troponin I (0.000-0.056) ng/mL Total Protein (6.4-8.2) g/dL Albumin (3.4-5.0) g/dL Globulin (2.6-4.0) g/dL Albumin/Globulin Ratio (0.9-1.6) Urine Color Urine Appearance Urine pH (5.0-8.0) Ur Specific [place] (1.001-1.035) Urine Protein (NEGATIVE) mg/dL Urine Glucose (UA) (NEGATIVE) mg/dL Urine Ketones (NEGATIVE) mg/dL Urine Occult Blood (NEGATIVE) Urine Nitrite (NEGATIVE) Urine Bilirubin (NEGATIVE) Urine Urobilinogen (<2.0) EU/dL Ur Leukocyte Esterase (NEGATIVE) Blood Type A POSITIVE Antibody Screen NEGATIVE 09/02/18 09/02/18 Range/Units 05:20 09:12 WBC (4.0-11.0) K/uL RBC (4.30-5.90) M/uL Hgb 11.6 L (12.0-16.0) g/dL Hct 34.6 L (36.0-46.0) % MCV (80.0-98.0) fL MCH (27.0-32.0) pg MCHC (31.0-37.0) g/dL RDW Std Deviation (28.0-62.0) fl RDW Coeff of Kristofer (11.0-15.0) % Plt Count (150-400) K/uL MPV (7.40-12.00) fL Neut % (Auto) (48.0-80.0) % Lymph % (Auto) (16.0-40.0) % [place] % (Auto) (0.0-15.0) % Eos % (Auto) (0.0-7.0) % Baso % (Auto) (0.0-1.5) % Neut # (Auto) (1.4-5.7) K/uL Lymph # (Auto) (0.6-2.4) K/uL [place] # (Auto) (0.0-0.8) K/uL Eos # (Auto) (0.0-0.7) K/uL Baso # (Auto) (0.0-0.1) K/uL Nucleated RBC % /100WBC Nucleated RBCs # K/uL INR ABG pH (7.35-7.45) ABG pCO2 (35-45) mmHG ABG pO2 (75-100) mmHG ABG HCO3 (22-26) mEq/L ABG Total CO2 ABG Base Excess (-2.0-2.0) Lactate (0.20-2.00) mmol/L Sodium (136-145) mmol/L Potassium (3.5-5.1) mmol/L Chloride (98-107) mmol/L Carbon Dioxide (21.0-32.0) mmol/L BUN (7.0-18.0) mg/dL Creatinine (0.6-1.0) mg/dL Est Cr Clr Drug Dosing mL/min Estimated GFR (MDRD) ml/min Glucose (74-106) mg/dL Calcium (8.5-10.1) mg/dL Total Bilirubin (0.2-1.0) mg/dL AST (15-37) IU/L ALT (14-63) IU/L Alkaline Phosphatase (46-116) U/L Troponin I (0.000-0.056) ng/mL Total Protein (6.4-8.2) g/dL Albumin (3.4-5.0) g/dL Globulin (2.6-4.0) g/dL Albumin/Globulin Ratio (0.9-1.6) Urine Color YELLOW Urine Appearance CLEAR Urine pH 6.0 (5.0-8.0) Ur Specific [place] 1.010 (1.001-1.035) Urine Protein NEGATIVE (NEGATIVE) mg/dL Urine Glucose (UA) NEGATIVE (NEGATIVE) mg/dL Urine Ketones NEGATIVE (NEGATIVE) mg/dL Urine Occult Blood NEGATIVE (NEGATIVE) Urine Nitrite NEGATIVE (NEGATIVE) Urine Bilirubin NEGATIVE (NEGATIVE) Urine Urobilinogen 0.2 (<2.0) EU/dL Ur Leukocyte Esterase NEGATIVE (NEGATIVE) Blood Type Antibody Screen Result Diagrams: 09/02/18 09:12 09/02/18 02:50 Sea Results Last 24 hrs: Microbiology 09/02/18 03:25 Anaerobic Blood Culture - Final Blood - Venous - Lab Draw Consult PN Assessment/Plan Procedures: Procedures ASSAY OF FOLIC ACID SERUM (02/20/15) ASSAY OF NATRIURETIC PEPTIDE (01/23/18) ASSAY THYROID STIM HORMONE (08/21/17) BLOOD TYPING SEROLOGIC ABO (03/02/18) BLOOD TYPING SEROLOGIC RH(D) (03/02/18) CHEST X-RAY 2VW FRONTAL&LATL (06/10/14) COMP SCREEN MAMMOGRAM ADD-ON (05/18/15) COMPLETE CBC AUTOMATED (03/02/18) COMPLETE CBC W/AUTO DIFF WBC (03/02/18) COMPREHEN METABOLIC PANEL (02/01/18) CULTURE OTHR SPECIMN AEROBIC (01/20/15) DESTRUCT B9 LESION 1-14 (07/28/14) ECHO EXAM OF ABDOMEN (03/02/16) EMERGENCY DEPT VISIT (01/21/14) EMERGENCY DEPT VISIT (01/21/14) GAIT TRAINING THERAPY (02/01/18) HPV HIGH-RISK TYPES (07/07/15) IMMUNIZATION ADMIN (10/31/14) INSERT TEMP BLADDER CATH (03/02/18) LIPID PANEL (09/15/17) MAMMOGRAM SCREENING (05/10/13) METABOLIC PANEL TOTAL CA (03/02/18) MICROBE SUSCEPTIBLE SEA (11/14/17) OFFICE/OUTPATIENT VISIT EST (03/02/18) OFFICE/OUTPATIENT VISIT EST (08/21/17) OFFICE/OUTPATIENT VISIT EST (02/24/15) OFFICE/OUTPATIENT VISIT EST (10/31/14) OFFICE/OUTPATIENT VISIT EST (10/22/13) OFFICE/OUTPATIENT VISIT EST (07/16/13) OFFICE/OUTPATIENT VISIT NEW (07/28/14) PT EVAL LOW COMPLEX 20 MIN (02/01/18) RBC ANTIBODY SCREEN (03/02/18) REPAIR BLADDER DEFECT (03/02/18) ROUTINE VENIPUNCTURE (03/02/18) SCR MAMMO BI INCL CAD (10/03/17) SMEAR WET [place] SALINE/INK (01/20/15) TDAP VACCINE 7 YRS/> IM (10/31/14) THERAPEUTIC EXERCISES (02/28/18) TISSUE EXAM BY PATHOLOGIST (03/02/18) TISSUE EXAM BY PATHOLOGIST (03/02/18) TTE W/DOPPLER COMPLETE (06/14/16) URINALYSIS AUTO W/SCOPE (01/03/18) URINE BACTERIA CULTURE (11/14/17) URINE CULTURE/COLONY COUNT (02/01/18) VAG HYST W/T/O & VAG REPAIR (03/02/18) VITAMIN B-12 (02/20/15) X-RAY EXAM KNEE 4 OR MORE (01/18/18) X-RAY EXAM OF KNEE 1 OR 2 (02/26/15) X-RAY EXAM OF KNEE 3 (02/05/15) (1) BRBPR (bright red blood per rectum) SNOMED Code(s): 97578554 Code(s): K62.5 - HEMORRHAGE OF ANUS AND RECTUM Current Visit: Yes (2) Abdominal pain SNOMED Code(s): 59697539 Code(s): R10.9 - UNSPECIFIED ABDOMINAL PAIN Priority: High Current Visit : Yes (3) Intraabdominal mass SNOMED Code(s): 405052185 Code(s): R19.00 - INTRA-ABD AND PELVIC SWELLING, MASS AND LUMP, UNSP SITE Priority: High Current Visit: Yes Comment: 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 She likely had some hemorrhoidal bleeding due to her diarrhea. My HOLDEN is normal and there is no evidence of hematochezia. Her WBC is normal otherwise. Regardless, I would give the patient IVF, broad spectrum IV antibiotics, and clear liquid diet. If she has a BM, send stool cultures and for occult blood. 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 Will continue to follow patient. Call with questions.
[2018-09-02] MEDS: Acetaminophen 325 MG Tab PO PRN (12:03)
[2018-09-02] MEDS: oxyCODONE 5 MG Tab PO PRN ×3 (14:21→22:28)
[2018-09-02] MEDS: Pravastatin 40 MG Tab PO SCH (21:05)
[2018-09-03] MEDS: oxyCODONE 5 MG Tab PO PRN ×5 (02:35→21:02)
[2018-09-03] MEDS: Omeprazole 20 MG Cap.CR PO SCH (06:34)
[2018-09-03] MEDS ORDERED: Aspirin 81 MG Tab.Chew PO SCH (09:00)
[2018-09-03] MEDS: Furosemide 20 MG Tab PO SCH (09:12)
[2018-09-03] MEDS: Levothyroxine 88 MCG Tab PO SCH (09:12)
[2018-09-03] MEDS: Beta-Carotene (Vitamin A) w/Vitamin C & E plus Minerals Tab PO SCH (09:12)
[2018-09-03] MEDS: Acetaminophen 325 MG Tab PO PRN (09:13)
[2018-09-03 09:15] LABS: BLOOD UREA NITROGEN,BUN 15 mg/dL (7.0-18.0); CARBON DIOXIDE,CO2 23.7 mmol/L (21.0-32.0); CHLORIDE,CL 110 mmol/L (98-107); GLUCOSE RANDOM 81 mg/dL (74-106); POTASSIUM,K 3.3 mmol/L (3.5-5.1); SODIUM,NA 141 mmol/L (136-145)
[2018-09-03] MEDS ORDERED: Ondansetron 4 MG/2 ML SDV IVPUSH ONE (10:24)
[2018-09-03] MEDS ORDERED: Potassium Chloride 20 MEQ Tab.ER PO ONE (11:46)
[2018-09-03] MEDS: Sodium Chloride 0.9% 1,000 ML IV SCH (11:51)
--- NOTE | 2018-09-03 14:52 | PCM.PN ---
<Apolinar Marte - Last Filed: 09/03/18 15:10> - General Info Date of Service: 09/03/18 Subjective Update: This is a 78-year-old female, currently day 2 of hospitalization, who is admitted for lower GI bleed. She has a PMH of hypertension, DVT and arrhythmia. On admission, CT abdomen showed a large left retroperitoneal mass and mild colitis of the descending colon with mild stranding. Patient had 2 episodes of bleeding per rectum yesterday, however, denies having any bleeding overnight or this morning. Furthermore, patient denies nausea, vomiting, abdominal pain and has not had any more bowel movements. Tolerating clear liquids well. - Patient Data Vitals - Most Recent: Last Vital Signs Temp 99.2 F 09/03/18 08:06 Pulse 85 09/03/18 08:06 Resp 12 09/03/18 08:06 BP 106/54 L 09/03/18 09:13 Pulse Ox 94 L 09/03/18 08:06 Weight - Most Recent: 72.484 kg I&O - Last 24 Hours: Intake & Output 09/02/18 09/03/18 09/03/18 22:59 06:59 14:59 Intake Total 1150 1549 Output Total 500 1100 Balance 650 449 Lab Results Last 24 Hours: Laboratory Results - last 24 hr 09/02/18 09/02/18 09/03/18 Range/Units 15:04 21:13 05:53 Hgb 10.8 L 10.4 L (12.0-16.0) g/dL Hct 32.6 L 31.6 L (36.0-46.0) % Sodium 141 (136-145) mmol/L Potassium 3.3 L (3.5-5.1) mmol/L Chloride 110 H (98-107) mmol/L Carbon Dioxide 23.7 (21.0-32.0) mmol/L BUN 15 (7.0-18.0) mg/dL Creatinine 0.9 (0.6-1.0) mg/dL Est Cr Clr Drug Dosing 40.74 mL/min Estimated GFR (MDRD) > 60.0 ml/min Glucose 81 (74-106) mg/dL Calcium 8.1 L (8.5-10.1) mg/dL Total Bilirubin 0.5 (0.2-1.0) mg/dL AST 16 (15-37) IU/L ALT 26 (14-63) IU/L Alkaline Phosphatase 46 (46-116) U/L Total Protein 5.0 L (6.4-8.2) g/dL Albumin 2.8 L (3.4-5.0) g/dL Globulin 2.2 L (2.6-4.0) g/dL Albumin/Globulin Ratio 1.3 (0.9-1.6) Sea Results Last 24 Hours: Microbiology 09/02/18 03:25 Aerobic Blood Culture - Preliminary Blood - Venous - Lab Draw NO GROWTH AFTER 1 DAY Anaerobic Blood Culture - Final 09/02/18 03:18 Aerobic Blood Culture - Preliminary Blood - Venous NO GROWTH AFTER 1 DAY Anaerobic Blood Culture - Preliminary NO GROWTH AFTER 1 DAY Med Orders - Current: Current Medications Acetaminophen (Tylenol) 650 mg PO Q4H PRN PRN Reason: Pain (Mild 1-3)/fever Last Admin: 09/03/18 09:13 Dose: 650 mg Aspirin (Aspirin) 81 mg PO MoWeFr@0900 [facility] Last Admin: 09/03/18 09:12 Dose: 81 mg Furosemide (Lasix) 20 mg PO QAM [facility] Last Admin: 09/03/18 09:12 Dose: 20 mg Sodium Chloride (Normal Saline) 1,000 mls @ 75 mls/hr IV ASDIRECTED [facility] Last Admin: 09/03/18 11:51 Dose: 75 mls/hr Levothyroxine Sodium (Synthroid) 88 mcg PO QAM [facility] Last Admin: 09/03/18 09:12 Dose: 88 mcg Multivitamins/Minerals (Prosight) 1 tab PO DAILY [facility] Last Admin: 09/03/18 09:12 Dose: 1 tab Omeprazole (Omeprazole) 40 mg PO ACBREAKFAST [facility] Last Admin: 09/03/18 06:34 Dose: 40 mg Oxycodone HCl (Oxycodone) 5 mg PO Q4H PRN PRN Reason: Pain (moderate 4-6) Last Admin: 09/03/18 10:38 Dose: 5 mg Pravastatin Sodium (Pravachol) 40 mg PO BEDTIME [facility] Last Admin: 09/02/18 21:05 Dose: 40 mg Prednisone (Prednisone) 5 mg PO SuTuThSa@0900 [facility] Last Admin: 07/28/19 09:21 Dose: 5 mg Ramipril (Altace) 10 mg PO DAILY [facility] Last Admin: 09/03/18 09:13 Dose: Not Given Sodium Chloride (Saline Flush) 10 ml FLUSH ASDIRECTED PRN PRN Reason: Keep Vein Open Last Admin: 09/02/18 03:07 Dose: 10 ml Sodium Chloride (Saline Flush) 2.5 ml FLUSH ASDIRECTED PRN PRN Reason: Keep Vein Open Last Admin: 09/02/18 03:07 Dose: 2.5 ml Discontinued Medications Sodium Chloride (Normal Saline) 1,000 mls @ 999 mls/hr IV STAT ONE Stop: 09/02/18 04:00 Last Admin: 09/02/18 02:50 Dose: 999 mls/hr Ondansetron HCl (Zofran) 4 mg IVPUSH ONETIME ONE Stop: 09/03/18 10:25 Last Admin: 09/03/18 10:50 Dose: 4 mg Potassium Chloride (Klor-Con M20) 40 meq PO ONETIME ONE Stop: 09/03/18 11:47 Last Admin: 09/03/18 12:34 Dose: 40 meq Tramadol HCl (Ultram) 50 mg PO Q6H [facility] Last Admin: 09/02/18 13:15 Dose: 50 mg - Exam General: Alert, Oriented, Cooperative, No Acute Distress Lungs: Clear to Auscultation Cardiovascular: Regular Rate, Regular Rhythm GI/Abdominal Exam: Normal Bowel Sounds, Soft, No Distention, Other (mild tenderness to palpation in left lower quadrant) Extremities: No Pedal Edema - Problem List Review Problem List Initiated/Reviewed/Updated: Yes - Plan Plan:: Assessment: 1. Bright red blood per rectum likely secondary to hemorrhoids. 2. Left retroperitoneal mass. 3. Hypokalemia, mild. 4. Past medical history of hypertension, DVT and cardiac arrhythmia. Plan: 1. For bright red blood per rectum, will continue to monitor patient's hemoglobin/hematocrit in case patient requires transfusion. Patient's hemoglobin has been downtrending since admission and was 10.4 today. Patient denied having any more episodes of bleeding or bloody stools today. General surgery consulted and it is believed that patient's large left retroperitoneal mass is likely causing diarrhea through mass effect and resulting in bleeding hemorrhoids. Stool studies including occult blood is pending. 2. For left retroperitoneal mass, general surgery recommended [facility] work[facility]. As per CT, mass is composed of fat tissue loculations and could represent liposarcoma. 3. For hypokalemia, will replete with 40 mEq PO today and will recheck with next set of labs. 4. For past medical history, will continue with home medications. <Odell Villela - Last Filed: 09/03/18 16:47> - General Info Admission Dx/Problem (Free Text): I have seen and examined the patient independently of Dr. Rosanna SCOTT. I have reviewed and agree with the plan of care as outlined by Dr. Marte and agree with the plan as outlined by this resident. I have discussed the case with the resident. Please see orders. - Patient Data Vitals - Most Recent: Last Vital Signs Temp 37.3 C 09/03/18 08:06 Pulse 85 09/03/18 08:06 Resp 12 09/03/18 08:06 BP 106/54 L 09/03/18 09:13 Pulse Ox 94 L 09/03/18 08:06 I&O - Last 24 Hours: Intake & Output 09/03/18 09/03/18 09/03/18 06:59 14:59 22:59 Intake Total 1549 470 Output Total 1100 1010 Balance 449 -540 Lab Results Last 24 Hours: Laboratory Results - last 24 hr 09/02/18 09/03/18 Range/Units 21:13 05:53 Hgb 10.4 L (12.0-16.0) g/dL Hct 31.6 L (36.0-46.0) % Sodium 141 (136-145) mmol/L Potassium 3.3 L (3.5-5.1) mmol/L Chloride 110 H (98-107) mmol/L Carbon Dioxide 23.7 (21.0-32.0) mmol/L BUN 15 (7.0-18.0) mg/dL Creatinine 0.9 (0.6-1.0) mg/dL Est Cr Clr Drug Dosing 40.74 mL/min Estimated GFR (MDRD) > 60.0 ml/min Glucose 81 (74-106) mg/dL Calcium 8.1 L (8.5-10.1) mg/dL Total Bilirubin 0.5 (0.2-1.0) mg/dL AST 16 (15-37) IU/L ALT 26 (14-63) IU/L Alkaline Phosphatase 46 (46-116) U/L Total Protein 5.0 L (6.4-8.2) g/dL Albumin 2.8 L (3.4-5.0) g/dL Globulin 2.2 L (2.6-4.0) g/dL Albumin/Globulin Ratio 1.3 (0.9-1.6) Sea Results Last 24 Hours: Microbiology 09/02/18 03:25 Aerobic Blood Culture - Preliminary Blood - Venous - Lab Draw NO GROWTH AFTER 1 DAY Anaerobic Blood Culture - Final 09/02/18 03:18 Aerobic Blood Culture - Preliminary Blood - Venous NO GROWTH AFTER 1 DAY Anaerobic Blood Culture - Preliminary NO GROWTH AFTER 1 DAY Med Orders - Current: Current Medications Acetaminophen (Tylenol) 650 mg PO Q4H PRN PRN Reason: Pain (Mild 1-3)/fever Last Admin: 09/03/18 09:13 Dose: 650 mg Aspirin (Aspirin) 81 mg PO MoWeFr@0900 [facility] Last Admin: 09/03/18 09:12 Dose: 81 mg Furosemide (Lasix) 20 mg PO QAM [facility] Last Admin: 09/03/18 09:12 Dose: 20 mg Sodium Chloride (Normal Saline) 1,000 mls @ 75 mls/hr IV ASDIRECTED [facility] Last Admin: 09/03/18 11:51 Dose: 75 mls/hr Levothyroxine Sodium (Synthroid) 88 mcg PO QAM [facility] Last Admin: 09/03/18 09:12 Dose: 88 mcg Multivitamins/Minerals (Prosight) 1 tab PO DAILY [facility] Last Admin: 09/03/18 09:12 Dose: 1 tab Omeprazole (Omeprazole) 40 mg PO ACBREAKFAST [facility] Last Admin: 09/03/18 06:34 Dose: 40 mg Oxycodone HCl (Oxycodone) 5 mg PO Q4H PRN PRN Reason: Pain (moderate 4-6) Last Admin: 09/03/18 10:38 Dose: 5 mg Pravastatin Sodium (Pravachol) 40 mg PO BEDTIME [facility] Last Admin: 09/02/18 21:05 Dose: 40 mg Prednisone (Prednisone) 5 mg PO SuTuThSa@0900 [facility] Last Admin: 09/02/18 09:21 Dose: 5 mg Ramipril (Altace) 10 mg PO DAILY [facility] Last Admin: 09/03/18 09:13 Dose: Not Given Sodium Chloride (Saline Flush) 10 ml FLUSH ASDIRECTED PRN PRN Reason: Keep Vein Open Last Admin: 09/02/18 03:07 Dose: 10 ml Sodium Chloride (Saline Flush) 2.5 ml FLUSH ASDIRECTED PRN PRN Reason: Keep Vein Open Last Admin: 09/02/18 03:07 Dose: 2.5 ml Discontinued Medications Sodium Chloride (Normal Saline) 1,000 mls @ 999 mls/hr IV STAT ONE Stop: 09/02/18 04:00 Last Admin: 09/02/18 02:50 Dose: 999 mls/hr Ondansetron HCl (Zofran) 4 mg IVPUSH ONETIME ONE Stop: 09/03/18 10:25 Last Admin: 09/03/18 10:50 Dose: 4 mg Potassium Chloride (Klor-Con M20) 40 meq PO ONETIME ONE Stop: 09/03/18 11:47 Last Admin: 09/03/18 12:34 Dose: 40 meq Tramadol HCl (Ultram) 50 mg PO Q6H [facility] Last Admin: 09/02/18 13:15 Dose: 50 mg - Problem List & Annotations (1) GI bleed SNOMED Code(s): 39305356 Code(s): K92.2 - GASTROINTESTINAL HEMORRHAGE, UNSPECIFIED Status: Acute Priority: High Current Visit: Yes Qualifiers: GI bleed type/associated pathology: anorectal hemorrhage Qualified Code(s) : K62.5 - Hemorrhage of anus and rectum (2) Abdominal pain SNOMED Code(s): 59916756 Code(s): R10.9 - UNSPECIFIED ABDOMINAL PAIN Status: Acute Priority: High Current Visit: Yes (3) Intraabdominal mass SNOMED Code(s): 029415679 Code(s): R19.00 - INTRA-ABD AND PELVIC SWELLING, MASS AND LUMP, UNSP SITE Status: Acute Priority: High Current Visit: Yes Annotation/Comment:: Possible liposarcoma - My Orders Last 24 Hours: My Active Orders 09/02/18 21:00 Pravastatin [Pravachol] 40 mg PO BEDTIME 09/03/18 09:00 Aspirin 81 mg PO MoWeFr@0909/03/18 Dinner Full Liquid Diet [DIET]
[2018-09-03] MEDS: Pravastatin 40 MG Tab PO SCH (20:48)
[2018-09-04] MEDS: oxyCODONE 5 MG Tab PO PRN ×2 (02:20→06:41)
[2018-09-04 06:01] LABS: BLOOD UREA NITROGEN,BUN 13 mg/dL (7.0-18.0); CARBON DIOXIDE,CO2 23.3 mmol/L (21.0-32.0); CHLORIDE,CL 111 mmol/L (98-107); GLUCOSE RANDOM 83 mg/dL (74-106); POTASSIUM,K 3.2 mmol/L (3.5-5.1); SODIUM,NA 142 mmol/L (136-145)
[2018-09-04] MEDS: Omeprazole 20 MG Cap.CR PO SCH (06:38)
[2018-09-04] MEDS: Beta-Carotene (Vitamin A) w/Vitamin C & E plus Minerals Tab PO SCH (08:55)
[2018-09-04] MEDS: predniSONE 5 MG Tab PO SCH (08:55)
[2018-09-04] MEDS: Levothyroxine 88 MCG Tab PO SCH (08:55)
[2018-09-04] MEDS: Furosemide 20 MG Tab PO SCH (08:55)
[2018-09-04] MEDS: Acetaminophen 325 MG Tab PO PRN (08:56)
[2018-09-04] MEDS ORDERED: Potassium Chloride 20 MEQ Tab.ER PO ONE (10:41)
--- NOTE | 2018-09-04 16:16 | PCM.DCSUM1 ---
<Apolinar Marte M - Last Filed: 09/04/18 16:07> Discharge Summary - Hospital Course Free Text/Narrative:: Patient is a 78-year-old female who was admitted for bright red bleeding per rectum. She has a past medical history of DVT, hypertension, and arrhythmia. CT scan revealed a left retroperitoneal mass and mild colitis of descending colon with mild stranding. General surgery was consulted and believe the retroperitoneal mass is causing diarrhea through mass effect and in turn leading to hemorrhoidal bleeding. Stool cultures and occult stool testing were not able to be obtained as patient did not have further bleeding per rectum during hospitalization to provide sample. General surgery further recommended following up with [facility] for further workup of retroperitoneal mass which is likely to be a liposarcoma. As per patient and family, [facility] will be calling them directly to schedule appointment. - Discharge Data Discharge Date: 09/04/18 Discharge Disposition: Home, Self-Care 01 Condition: Good - Patient Summary/Data Consults: Consultations 09/02/18 08:03 Consult to Physician [CONS] Routine - Patient Instructions Diet: Heart Healthy Diet Activity: As Tolerated Notify Provider of: Fever, Increased Pain, Swelling and Redness, Nausea and/or Vomiting - Discharge Plan *PRESCRIPTION DRUG MONITORING PROGRAM REVIEWED*: Not Applicable *COPY OF PRESCRIPTION DRUG MONITORING REPORT IN PATIENT ELI: Not Applicable Home Medications: Home Meds Acetaminophen [Tylenol Extra Strength] 1,000 mg PO Q4H 01/21/14 [History] Aspirin [Idalia Chewable Aspirin] 81 mg PO MOWEFR 01/21/14 [History] Calcium Carb &Cit/Magnesium Ox [Calmag Thins Tablet] 1 tab PO DAILY 01/21/14 [ History] Furosemide [Lasix] 20 mg PO QAM 01/21/14 [History] Ibuprofen 800 mg PO BEDTIME 01/21/14 [History] Levothyroxine [Synthroid] 88 mcg PO QAM 01/21/14 [History] Lutein/Zeaxanthin [Lutein-Zeaxanthin 25-5 mg Sfgl] 1 cap PO DAILY 01/21/14 [ History] Multivitamin [Multivitamins] 1 cap PO DAILY 01/21/14 [History] [place]-3 Fatty Acids/Fish Oil [Fish Oil 1,200 mg Softgel] 1,200 mg PO DAILY 01/21 [History] Omeprazole 40 mg PO QAM 01/21/14 [History] Pravastatin [Pravachol] 40 mg PO DAILY 01/21/14 [History] Ramipril [Altace] 10 mg PO DAILY 01/21/14 [History] Ubidecarenone [Co Q-10] 100 mg PO DAILY 01/21/14 [History] Vitamin B Complex [Super B-50 Complex] 1 cap PO DAILY 01/21/14 [History] predniSONE 5 mg PO ASDIRECTED 01/21/14 [History] traMADol [Ultram] 50 mg PO Q6H 01/21/14 [History] Cholecalciferol (Vitamin D3) [Vitamin D3] 2,000 mg PO DAILY 02/27/18 [History] Glucosam/Chond/Hyalu/Cf Borate [Move Free Joint Health Tablet] 1 tab PO DAILY [History] Vitamin E (Dl,Tocopheryl Acet) [Vitamin E] 200 unit PO DAILY 02/27/18 [History] Ascorbic Acid [Vitamin C] 1 tab PO DAILY 09/02/18 [History] Non-Formulary Medication [NF Drug] 50 mg PO 09/02/18 [History] Patient Handouts: Gastrointestinal Bleeding, [id number] Referrals: Toñito Pichardo MD [Primary Care Provider] - 09/07/18 10:30 am - Discharge Summary/Plan Comment DC Time >30 min.: No - Patient Data Vitals - Most Recent: Last Vital Signs Temp 96.5 F 09/04/18 12:00 Pulse 81 09/04/18 07:57 Resp 20 09/04/18 12:00 BP 111/54 L 09/04/18 12:00 Pulse Ox 94 L 09/04/18 12:00 Weight - Most Recent: 72.484 kg I&O - Last 24 hours: Intake & Output 09/04/18 09/04/18 09/04/18 06:59 14:59 22:59 Intake Total 360 700 Output Total 1300 800 Balance -940 -100 Lab Results - Last 24 hrs: Laboratory Results - last 24 hr 09/04/18 09/04/18 Range/Units 05:23 05:23 WBC 7.60 (4.0-11.0) K/uL RBC 2.69 L (4.30-5.90) M/uL Hgb 9.4 L (12.0-16.0) g/dL Hct 29.3 L (36.0-46.0) % MCV 108.9 H (80.0-98.0) fL MCH 34.9 H (27.0-32.0) pg MCHC 32.1 (31.0-37.0) g/dL RDW Std Deviation 61.1 (28.0-62.0) fl RDW Coeff of Kristofer 15 (11.0-15.0) % Plt Count 205 (150-400) K/uL MPV 11.40 (7.40-12.00) fL Nucleated RBC % 0.0 /100WBC Nucleated RBCs # 0 K/uL Sodium 142 (136-145) mmol/L Potassium 3.2 L (3.5-5.1) mmol/L Chloride 111 H (98-107) mmol/L Carbon Dioxide 23.3 (21.0-32.0) mmol/L BUN 13 (7.0-18.0) mg/dL Creatinine 0.9 (0.6-1.0) mg/dL Est Cr Clr Drug Dosing 40.74 mL/min Estimated GFR (MDRD) > 60.0 ml/min Glucose 83 (74-106) mg/dL Calcium 8.2 L (8.5-10.1) mg/dL LINK Results - Last 24 hrs: Microbiology 09/02/18 03:25 Aerobic Blood Culture - Preliminary Blood - Venous - Lab Draw NO GROWTH AFTER 2 DAYS Anaerobic Blood Culture - Final 09/02/18 03:18 Aerobic Blood Culture - Preliminary Blood - Venous NO GROWTH AFTER 2 DAYS Anaerobic Blood Culture - Preliminary NO GROWTH AFTER 2 DAYS Med Orders - Current: Current Medications Discontinued Medications Acetaminophen (Tylenol) 650 mg PO Q4H PRN PRN Reason: Pain (Mild 1-3)/fever Last Admin: 09/04/18 08:56 Dose: 650 mg Aspirin (Aspirin) 81 mg PO MoWeFr@0900 [facility] Last Admin: 09/03/18 09:12 Dose: 81 mg Furosemide (Lasix) 20 mg PO QAM [facility] Last Admin: 09/04/18 08:55 Dose: 20 mg Sodium Chloride (Normal Saline) 1,000 mls @ 999 mls/hr IV STAT ONE Stop: 09/02/18 04:00 Last Admin: 09/02/18 02:50 Dose: 999 mls/hr Sodium Chloride (Normal Saline) 1,000 mls @ 75 mls/hr IV ASDIRECTED [facility] Last Admin: 09/03/18 11:51 Dose: 75 mls/hr Levothyroxine Sodium (Synthroid) 88 mcg PO QAM [facility] Last Admin: 09/04/18 08:55 Dose: 88 mcg Multivitamins/Minerals (Prosight) 1 tab PO DAILY [facility] Last Admin: 09/04/18 08:55 Dose: 1 tab Omeprazole (Omeprazole) 40 mg PO ACBREAKFAST [facility] Last Admin: 09/04/18 06:38 Dose: 40 mg Ondansetron HCl (Zofran) 4 mg IVPUSH ONETIME ONE Stop: 09/03/18 10:25 Last Admin: 09/03/18 10:50 Dose: 4 mg Oxycodone HCl (Oxycodone) 5 mg PO Q4H PRN PRN Reason: Pain (moderate 4-6) Last Admin: 09/04/18 06:41 Dose: 5 mg Potassium Chloride (Klor-Con M20) 40 meq PO ONETIME ONE Stop: 09/03/18 11:47 Last Admin: 09/03/18 12:34 Dose: 40 meq Potassium Chloride (Klor-Con M20) 40 meq PO ONETIME ONE Stop: 09/04/18 10:42 Last Admin: 09/04/18 11:11 Dose: 40 meq Pravastatin Sodium (Pravachol) 40 mg PO BEDTIME [facility] Last Admin: 09/03/18 20:48 Dose: 40 mg Prednisone (Prednisone) 5 mg PO SuTuThSa@0900 [facility] Last Admin: 09/04/18 08:55 Dose: 5 mg Ramipril (Altace) 10 mg PO DAILY [facility] Last Admin: 09/04/18 09:11 Dose: Not Given Sodium Chloride (Saline Flush) 10 ml FLUSH ASDIRECTED PRN PRN Reason: Keep Vein Open Last Admin: 09/02/18 03:07 Dose: 10 ml Sodium Chloride (Saline Flush) 2.5 ml FLUSH ASDIRECTED PRN PRN Reason: Keep Vein Open Last Admin: 09/02/18 03:07 Dose: 2.5 ml Tramadol HCl (Ultram) 50 mg PO Q6H [facility] Last Admin: 09/02/18 13:15 Dose: 50 mg *Q Meaningful Use (DIS) - VTE *Q VTE Mechanical Contraindications *Q: At Risk for Falls VTE Pharmacological Contraindications *Q: Active Hemorrhage <Odell Villela - Last Filed: 09/04/18 18:46> Discharge Summary - Hospital Course HPI Initial Comments: I have seen and examined the patient independently of Dr. Rosanna SCOTT. I have reviewed and agree with the plan of care as outlined by Dr. Marte and agree with the plan as outlined by this resident. I have discussed the case with the resident. Please see orders. - Discharge Diagnosis/Problem(s) (1) GI bleed SNOMED Code(s): 16612409 ICD Code: K92.2 - GASTROINTESTINAL HEMORRHAGE, UNSPECIFIED Status: Acute Priority: High Qualifiers: GI bleed type/associated pathology: anorectal hemorrhage Qualified Code(s) : K62.5 - Hemorrhage of anus and rectum (2) Abdominal pain SNOMED Code(s): 21598150 ICD Code: R10.9 - UNSPECIFIED ABDOMINAL PAIN Status: Acute Priority: High (3) Intraabdominal mass SNOMED Code(s): 225243551 ICD Code: R19.00 - INTRA-ABD AND PELVIC SWELLING, MASS AND LUMP, UNSP SITE Status: Acute Priority: High Problem Details: Possible liposarcoma - Patient Summary/Data Consults: Consultations 09/02/18 08:03 Consult to Physician [CONS] Routine - Patient Data Vitals - Most Recent: Last Vital Signs Temp 35.8 C 09/04/18 12:00 Pulse 81 09/04/18 07:57 Resp 20 09/04/18 12:00 BP 111/54 L 09/04/18 12:00 Pulse Ox 94 L 09/04/18 12:00 I&O - Last 24 hours: Intake & Output 09/04/18 09/04/18 09/04/18 06:59 14:59 22:59 Intake Total 360 700 Output Total 1300 800 Balance -940 -100 Lab Results - Last 24 hrs: Laboratory Results - last 24 hr 09/04/18 09/04/18 Range/Units 05:23 05:23 WBC 7.60 (4.0-11.0) K/uL RBC 2.69 L (4.30-5.90) M/uL Hgb 9.4 L (12.0-16.0) g/dL Hct 29.3 L (36.0-46.0) % MCV 108.9 H (80.0-98.0) fL MCH 34.9 H (27.0-32.0) pg MCHC 32.1 (31.0-37.0) g/dL RDW Std Deviation 61.1 (28.0-62.0) fl RDW Coeff of Kristofer 15 (11.0-15.0) % Plt Count 205 (150-400) K/uL MPV 11.40 (7.40-12.00) fL Nucleated RBC % 0.0 /100WBC Nucleated RBCs # 0 K/uL Sodium 142 (136-145) mmol/L Potassium 3.2 L (3.5-5.1) mmol/L Chloride 111 H (98-107) mmol/L Carbon Dioxide 23.3 (21.0-32.0) mmol/L BUN 13 (7.0-18.0) mg/dL Creatinine 0.9 (0.6-1.0) mg/dL Est Cr Clr Drug Dosing 40.74 mL/min Estimated GFR (MDRD) > 60.0 ml/min Glucose 83 (74-106) mg/dL Calcium 8.2 L (8.5-10.1) mg/dL LINK Results - Last 24 hrs: Microbiology 09/02/18 03:25 Aerobic Blood Culture - Preliminary Blood - Venous - Lab Draw NO GROWTH AFTER 2 DAYS Anaerobic Blood Culture - Final 09/02/18 03:18 Aerobic Blood Culture - Preliminary Blood - Venous NO GROWTH AFTER 2 DAYS Anaerobic Blood Culture - Preliminary NO GROWTH AFTER 2 DAYS Med Orders - Current: Current Medications Discontinued Medications Acetaminophen (Tylenol) 650 mg PO Q4H PRN PRN Reason: Pain (Mild 1-3)/fever Last Admin: 09/04/18 08:56 Dose: 650 mg Aspirin (Aspirin) 81 mg PO MoWeFr@0900 [facility] Last Admin: 09/03/18 09:12 Dose: 81 mg Furosemide (Lasix) 20 mg PO QAM [facility] Last Admin: 09/04/18 08:55 Dose: 20 mg Sodium Chloride (Normal Saline) 1,000 mls @ 999 mls/hr IV STAT ONE Stop: 09/02/18 04:00 Last Admin: 09/02/18 02:50 Dose: 999 mls/hr Sodium Chloride (Normal Saline) 1,000 mls @ 75 mls/hr IV ASDIRECTED [facility] Last Admin: 09/03/18 11:51 Dose: 75 mls/hr Levothyroxine Sodium (Synthroid) 88 mcg PO QAM [facility] Last Admin: 09/04/18 08:55 Dose: 88 mcg Multivitamins/Minerals (Prosight) 1 tab PO DAILY [facility] Last Admin: 09/04/18 08:55 Dose: 1 tab Omeprazole (Omeprazole) 40 mg PO ACBREAKFAST [facility] Last Admin: 09/04/18 06:38 Dose: 40 mg Ondansetron HCl (Zofran) 4 mg IVPUSH ONETIME ONE Stop: 09/03/18 10:25 Last Admin: 09/03/18 10:50 Dose: 4 mg Oxycodone HCl (Oxycodone) 5 mg PO Q4H PRN PRN Reason: Pain (moderate 4-6) Last Admin: 09/04/18 06:41 Dose: 5 mg Potassium Chloride (Klor-Con M20) 40 meq PO ONETIME ONE Stop: 09/03/18 11:47 Last Admin: 09/03/18 12:34 Dose: 40 meq Potassium Chloride (Klor-Con M20) 40 meq PO ONETIME ONE Stop: 09/04/18 10:42 Last Admin: 09/04/18 11:11 Dose: 40 meq Pravastatin Sodium (Pravachol) 40 mg PO BEDTIME [facility] Last Admin: 09/03/18 20:48 Dose: 40 mg Prednisone (Prednisone) 5 mg PO SuTuThSa@0900 [facility] Last Admin: 09/04/18 08:55 Dose: 5 mg Ramipril (Altace) 10 mg PO DAILY [facility] Last Admin: 09/04/18 09:11 Dose: Not Given Sodium Chloride (Saline Flush) 10 ml FLUSH ASDIRECTED PRN PRN Reason: Keep Vein Open Last Admin: 09/02/18 03:07 Dose: 10 ml Sodium Chloride (Saline Flush) 2.5 ml FLUSH ASDIRECTED PRN PRN Reason: Keep Vein Open Last Admin: 09/02/18 03:07 Dose: 2.5 ml Tramadol HCl (Ultram) 50 mg PO Q6H [facility] Last Admin: 09/02/18 13:15 Dose: 50 mg
== END 2018-09-04 13:30 | disposition home or self-care (01) ==
LOC: MW.ED 02:42 → MW.MS 03:59
PROVIDERS: ADMIT Internal Medicine; ATTEND Internal Medicine
DX: K62.5 Hemorrhage of anus and rectum (principal); K52.9 Noninfective gastroenteritis and colitis, unspecified; K64.9 Unspecified hemorrhoids; K21.9 Gastro-esophageal reflux disease without esophagitis; E78.00 Pure hypercholesterolemia, unspecified; I10 Essential (primary) hypertension; J45.909 Unspecified asthma, uncomplicated; R10.32 Left lower quadrant pain; R19.09 Other intra-abdominal and pelvic swelling, mass and lump; E03.9 Hypothyroidism, unspecified; Z88.1 Allergy status to other antibiotic agents; Z88.0 Allergy status to penicillin; Z88.8 Allergy status to other drugs, medicaments and biological substances; Z91.048 Other nonmedicinal substance allergy status; Z79.899 Other long term (current) drug therapy; Z79.82 Long term (current) use of aspirin; Z79.52 Long term (current) use of systemic steroids; Z79.891 Long term (current) use of opiate analgesic; Z87.891 Personal history of nicotine dependence; Z86.718 Personal history of other venous thrombosis and embolism
CPT/HCPCS: 36415; 36600; 71045; 74176; 80048; 80053; 81003; 82803; 83605; 84484; 85014; 85018; 85025; 85027; 85610; 86850; 86900; 86901; 87040; 93005; 96361; 96374; 99285; A9270; G0378; J2405; J7040; J7512; 96360

== ENCOUNTER 2019-11-03 11:02 | Inpatient (IN) | payer MEDICARE, OTHER ==
--- NOTE | 2019-11-03 12:53 | EDM.PDOC ---
ED HPI GENERAL MEDICAL PROBLEM - General Chief Complaint: Lower Extremity Injury/Pain Stated Complaint: LT LEG SWELLING RED WARM Time Seen by Provider: 11/03/19 12:34 Source of Information: Reports: Patient History Limitations: Reports: No Limitations - History of Present Illness INITIAL COMMENTS - FREE TEXT/NARRATIVE: HISTORY AND PHYSICAL: History of present illness: Patient is a 79-year-old female who presents to the emergency room with complaints of right lower extremity swelling. She states on October 21 she noticed the left lower extremity start to swell. She states the severity of the swelling would fluctuate based on time of day, seems to be worse at night. The leg itself is tender to touch (from groin down), denies any injury or trauma. Noticed some redness over the past few days from the knee down. Patient denies any fever, chills, headache, change in vision, syncope or near syncope. Denies any chest pain, back pain, shortness of breath or cough. Denies any abdominal pain, nausea, vomiting, diarrhea, constipation or dysuria. Has not noted any blood in urine or stool. Patient has been eating and drinking appropriately. Review of systems: As per history of present illness and below otherwise all systems reviewed and negative. Past medical history: As per history of present illness and as reviewed below otherwise noncontributory. Surgical history: As per history of present illness and as reviewed below otherwise noncontributory. Social history: See social history for further information Family history: As per history of present illness and as reviewed below otherwise noncontributory. Physical exam: General: Well developed and well nourished. Alert and orientated x 3. Nontoxic in appearance and in no acute distress. Vital signs are stable and have been reviewed by me. Nursing notes were reviewed. HEENT: Atraumatic, normocephalic, pupils equal and reactive bilaterally, negative for conjunctival pallor or scleral icterus, mucous membranes moist, TMs normal bilaterally, throat clear, neck supple, nontender, trachea midline. No drooling or trismus noted. No meningeal signs. No hot potato voice noted. Lungs: Clear to auscultation, breath sounds equal bilaterally, chest nontender. Normal work of breathing, no accessory muscles used. Heart: S1S2, regular rate and rhythm without overt murmur Abdomen: Soft, nondistended, nontender. Negative for masses or hepatosplenomegaly. Negative for costovertebral tenderness. Pelvis: Stable nontender. Rectal: This was done with consent and a under water assistant at the bedside. Patient is Hemoccult negative. No external or internal hemorrhoids noted. Good rectal tone. Skin: Diffuse redness noted to mid cordero to ankle on the left lower extremity. Intact, warm, dry. No lesions or rashes noted. Hematologic: No petechiae or purpra. Mucosa appropriate color and normal nail bed color and refill. Extremities: Atraumatic, moves all extremities per self without difficulty. The left leg is swollen from the groin downward. +2 pitting edema of the left foot. Both legs are warm to touch. Pedal pulses are noted bilaterally. Cap refill is less than 2 seconds on the left foot. Neurovascular unremarkable. Neuro: Awake, alert, oriented. Cranial nerves II through XII unremarkable. Cerebellum unremarkable. Motor and sensory unremarkable throughout. Exam nonfocal. Psychiatric: Mood and affect are appropriate. Normal thought process. Answering questions appropriately. Notes: DVT of the left lower extremity. I had Dr Sandoval verify with me that both legs are warm to touch. Pedal pulses are noted bilaterally. Cap refill is less than 2 seconds on the left foot. Patient needs to be admitted for DVT treatment and cellulitis. Dr. Webster was consulted and he is agreeable to keeping this patient for further care and management. I discussed all results and findings with the patient. She is agreeable to staying at our facility for further care. Diagnostics: CBC, CMP, PT/INR, UA, CXR, EKG Therapeutics: Heparin bolus and drip Impression: DVT Cellulitis Plan: Inpatient admission for [facility] with telemetry Definitive disposition and diagnosis as appropriate pending reevaluation and review of above. Duration: Day(s): Location: Reports: Lower Extremity, Left left leg Pain Score (Numeric/FACES): 5 - Related Data Allergies Allergy/AdvReac Type Severity Reaction Status Date / Time adhesive Allergy Burning Verified 11/03/19 12:35 cephalexin [Cephalexin] Allergy Hives Verified 11/03/19 12:35 erythromycin lactobionate Allergy Agitation Verified 11/03/19 12:35 [From Erythrocin] iodine Allergy Difficulty Verified 11/03/19 12:35 Breathing Penicillins Allergy Hives Verified 11/03/19 12:35 pregabalin [From Lyrica] Allergy Other Verified 11/03/19 12:35 simvastatin Allergy Muscle Verified 11/03/19 12:35 Aches Home Meds: Home Meds Acetaminophen [Tylenol Extra Strength] 1,000 mg PO Q4H 01/21/14 [History] Calcium Carb, Cit/Magnesium Ox [Calmag Thins Tablet] 1 tab PO DAILY 01/21/14 [History] Furosemide [Lasix] 20 mg PO ASDIRECTED 01/21/14 [History] Ibuprofen 800 mg PO BEDTIME 01/21/14 [History] Levothyroxine [Synthroid] 88 mcg PO QAM 01/21/14 [History] Lutein/Zeaxanthin [Lutein-Zeaxanthin 25-5 mg Sfgl] 1 cap PO DAILY 01/21/14 [History] Multivitamin [Multivitamins] 1 cap PO DAILY 01/21/14 [History] [place]-3 Fatty Acids/Fish Oil [Fish Oil 1,200 mg Softgel] 1,200 mg PO DAILY 01/21/14 [History] Omeprazole 40 mg PO QAM 01/21/14 [History] Pravastatin [Pravachol] 40 mg PO DAILY 01/21/14 [History] Ubidecarenone [Co Q-10] 100 mg PO DAILY 01/21/14 [History] Vitamin B Complex [Super B-50 Complex] 1 cap PO DAILY 01/21/14 [History] predniSONE 5 mg PO ASDIRECTED 01/21/14 [History] ramipriL [Altace] 10 mg PO DAILY 01/21/14 [History] traMADol [Ultram] 50 mg PO Q6H 01/21/14 [History] Cholecalciferol (Vitamin D3) [Vitamin D3] 2,000 mg PO DAILY 02/27/18 [History] Glucosam/Chond/Hyalu/Cf Borate [Move Free Joint Health Tablet] 1 tab PO DAILY 02/27/18 [History] Vitamin E (Dl,Tocopheryl Acet) [Vitamin E] 200 unit PO DAILY 02/27/18 [History] Ascorbic Acid [Vitamin C] 1 tab PO DAILY 09/02/18 [History] Non-Formulary Medication [NF Drug] 50 mg PO 09/02/18 [History] Past Medical History HEENT History: Reports: Hard of Hearing, Macular Degeneration, Other (See Below) Other HEENT History: wears glasses, has upper permanent partial denture Cardiovascular History: Reports: Arrhythmia, High Cholesterol, Hypertension, Other (See Below) Other Cardiovascular History: states 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- took aspirin Respiratory History: Reports: Asthma Gastrointestinal History: Reports: GERD Genitourinary History: Reports: UTI, Recurrent Other Genitourinary History: left kidney removed 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 [employer]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: 4 c sections and 1 secondary enclosure Musculoskeletal History: Reports: Arthritis, Fracture Other Musculoskeletal History: hx of fx left hand Neurological History: Reports: None Psychiatric History: Reports: None Endocrine/Metabolic History: Reports: Hypothyroidism Hematologic History: Reports: Blood Transfusion(s) Immunologic History: Reports: None Oncologic (Cancer) History: Reports: Other (See Below) Other Oncologic History: liposarcoma cancer Dermatologic History: Reports: None - Infectious Disease History Infectious Disease History: Reports: Chicken Pox, Measles, Mumps - Past Surgical History Head Surgeries/Procedures: Reports: None HEENT Surgical History: Reports: Tonsillectomy Cardiovascular Surgical History: Reports: Cardiac Ablation, Other (See Below) GI Surgical History: Reports: Appendectomy Other GI Surgeries/Procedures: part of colon removed. spleen removed Female Surgical History: Reports: Section Other Female Surgeries/Procedures: x4 Social & Family History - Family History Family Medical History: Noncontributory - Tobacco Use Smoking Status *Q: Former Smoker Used Tobacco, but Quit: Yes Month/Year Tobacco Last Used: 1995 - Caffeine Use Caffeine Use: Reports: Coffee - Recreational Drug Use Recreational Drug Use: No - Living Situation & Occupation Living situation: Reports: , with Spouse Occupation: Retired Review of Systems - Review of Systems Review Of Systems: Comprehensive ROS is negative, except as noted in HPI. ED EXAM, GENERAL - Physical Exam Exam: See Below (See dictation) Course - Vital Signs Last Recorded V/S: Last Vital Signs Temp 97.4 F 11/03/19 12:36 Pulse 84 11/03/19 12:36 Resp 16 11/03/19 12:36 BP 123/56 L 11/03/19 12:36 Pulse Ox 100 11/03/19 12:36 - Orders/Labs/Meds Orders: Active Orders 24 hr Category Date Time Status Admission Status [Patient Status] [ADT] Stat ADT 11/03/19 13:37 Active Cardiac Monitoring [RC] . DIRECTED Care 11/03/19 13:37 Active EKG 12 Lead [EKG Documentation Completion] [RC] STAT Care 11/03/19 12:37 Active CORONAVIRUS COVID-19 PCR PHL Stat Lab 11/03/19 13:37 Ordered PTT,PARTIAL THROMBOPLSTIN TIME [COAG] Q6H Lab 11/03/19 19:30 Ordered PTT,PARTIAL THROMBOPLSTIN TIME [COAG] Q6H Lab 11/04/19 01:30 Ordered PTT,PARTIAL THROMBOPLSTIN TIME [COAG] Q6H Lab 11/04/19 07:30 Ordered PTT,PARTIAL THROMBOPLSTIN TIME [COAG] Q6H Lab 11/04/19 13:30 Ordered PTT,PARTIAL THROMBOPLSTIN TIME [COAG] Q6 Lab 11/04/19 19:30 Ordered PTT,PARTIAL THROMBOPLSTIN TIME [COAG] Q6 Lab 11/05/19 01:30 Ordered UA RFX LINK AND CULT IF INDIC [URIN] Stat Lab 11/03/19 12:37 Ordered Heparin Sod,Pork In 0.45% Nacl [Heparin-1/2Ns 25,000 Med 11/03/19 13:30 Active Units/500] 25,000 unit in 500 ml IV TITRATE Vancomycin 1 gm Med 11/03/19 13:25 Active Sodium Chloride 0.9% [Normal Saline (AdvBag)] 250 ml IV ONETIME Medication Orders Heparin Sodium/Sodium Chloride (Heparin-1/2ns 25,000 Units/500) 25,000 unit in 500 mls @ 22.045 mls/hr IV TITRATE JOAN; Protocol Last Admin: 11/03/19 14:11 Dose: 18 units/kg/hr, 22.045 mls/hr Documented by: MARIYA Cosigned by: ARSH Vancomycin HCl 1 gm/ Sodium (Chloride) 250 mls @ 166 mls/hr IV ONETIME ONE Stop: 11/03/19 14:55 Last Admin: 11/03/19 14:02 Dose: 166 mls/hr Documented by: MARIYA Labs: Laboratory Tests 11/03/19 11/03/19 11/03/19 Range/Units 13:05 13:05 13:05 WBC 8.50 (4.0-11.0) K/uL RBC 2.71 L (4.30-5.90) M/uL Hgb 10.5 L (12.0-16.0) g/dL Hct 31.3 L (36.0-46.0) % MCV 115.5 H (80.0-98.0) fL MCH 38.7 H (27.0-32.0) pg MCHC 33.5 (31.0-37.0) g/dL RDW Std Deviation 61.2 (28.0-62.0) fl RDW Coeff of Kristofer 14 (11.0-15.0) % Plt Count 277 (150-400) K/uL MPV 11.80 (7.40-12.00) fL Neut % (Auto) 72.1 (48.0-80.0) % Lymph % (Auto) 12.6 L (16.0-40.0) % Sherman % (Auto) 13.1 (0.0-15.0) % Eos % (Auto) 1.8 (0.0-7.0) % Baso % (Auto) 0.4 (0.0-1.5) % Neut # (Auto) 6.1 H (1.4-5.7) K/uL Lymph # (Auto) 1.1 (0.6-2.4) K/uL Sherman # (Auto) 1.1 H (0.0-0.8) K/uL Eos # (Auto) 0.2 (0.0-0.7) K/uL Baso # (Auto) 0.0 (0.0-0.1) K/uL Nucleated RBC % 0.0 /100WBC Nucleated RBCs # 0 K/uL INR 1.00 APTT (18.6-31.3) SEC Sodium 132 L (136-145) mmol/L Potassium 4.8 (3.5-5.1) mmol/L Chloride 96 L (98-107) mmol/L Carbon Dioxide 25.3 (21.0-32.0) mmol/L BUN 20 H (7.0-18.0) mg/dL Creatinine 1.3 H (0.6-1.0) mg/dL Est Cr Clr Drug Dosing 29.03 mL/min Estimated GFR (MDRD) 39.5 ml/min Glucose 112 H (74-106) mg/dL Calcium 9.3 (8.5-10.1) mg/dL Total Bilirubin 0.4 (0.2-1.0) mg/dL AST 24 (15-37) IU/L ALT 31 (14-63) IU/L Alkaline Phosphatase 86 (46-116) U/L Total Protein 7.4 (6.4-8.2) g/dL Albumin 3.8 (3.4-5.0) g/dL Globulin 3.6 (2.6-4.0) g/dL Albumin/Globulin Ratio 1.1 (0.9-1.6) 11/03/19 Range/Units 13:05 WBC (4.0-11.0) K/uL RBC (4.30-5.90) M/uL Hgb (12.0-16.0) g/dL Hct (36.0-46.0) % MCV (80.0-98.0) fL MCH (27.0-32.0) pg MCHC (31.0-37.0) g/dL RDW Std Deviation (28.0-62.0) fl RDW Coeff of Kristofer (11.0-15.0) % Plt Count (150-400) K/uL MPV (7.40-12.00) fL Neut % (Auto) (48.0-80.0) % Lymph % (Auto) (16.0-40.0) % Sherman % (Auto) (0.0-15.0) % Eos % (Auto) (0.0-7.0) % Baso % (Auto) (0.0-1.5) % Neut # (Auto) (1.4-5.7) K/uL Lymph # (Auto) (0.6-2.4) K/uL Sherman # (Auto) (0.0-0.8) K/uL Eos # (Auto) (0.0-0.7) K/uL Baso # (Auto) (0.0-0.1) K/uL Nucleated RBC % /100WBC Nucleated RBCs # K/uL INR APTT 23.9 (18.6-31.3) SEC Sodium (136-145) mmol/L Potassium (3.5-5.1) mmol/L Chloride (98-107) mmol/L Carbon Dioxide (21.0-32.0) mmol/L BUN (7.0-18.0) mg/dL Creatinine (0.6-1.0) mg/dL Est Cr Clr Drug Dosing mL/min Estimated GFR (MDRD) ml/min Glucose (74-106) mg/dL Calcium (8.5-10.1) mg/dL Total Bilirubin (0.2-1.0) mg/dL AST (15-37) IU/L ALT (14-63) IU/L Alkaline Phosphatase (46-116) U/L Total Protein (6.4-8.2) g/dL Albumin (3.4-5.0) g/dL Globulin (2.6-4.0) g/dL Albumin/Globulin Ratio (0.9-1.6) Meds: Medications Generic Name Dose Route Start Last Admin Trade Name Freq PRN Reason Stop Dose Admin Heparin Sodium/Sodium Chloride 25,000 unit in 500 mls @ 22.045 mls/hr 11/03/19 13:30 11/03/19 14:11 Heparin-1/2ns 25,000 Units/500 IV 18 units/kg/hr TITRATE JOAN 22.045 mls/hr Administration Protocol 18 UNITS/KG/HR Vancomycin HCl 1 gm/ Sodium 250 mls @ 166 mls/hr 11/03/19 13:25 11/03/19 14:02 Chloride IV 11/03/19 14:55 166 mls/hr ONETIME ONE Administration Discontinued Medications Generic Name Dose Route Start Last Admin Trade Name Freq PRN Reason Stop Dose Admin Heparin Sodium (Porcine) 5,000 units 11/03/19 13:22 11/03/19 14:05 Heparin Sodium IVPUSH 11/03/19 13:23 5,000 units ONETIME ONE Administration Departure - Departure Time of Disposition: 14:27 Disposition: Admitted As Inpatient 66 Clinical Impression: Cellulitis Qualifiers: Site of cellulitis: extremity Site of cellulitis of extremity: lower extremity Laterality: left Qualified Code(s): L03.116 - Cellulitis of left lower limb DVT (deep venous thrombosis) Qualifiers: DVT location: lower extremity Affected thrombotic vein of extremity: femoral Chronicity: acute Laterality: left Qualified Code(s): I82.412 - Acute embolism and thrombosis of left femoral vein - Discharge Information Referrals: Toñito Pichardo MD [Primary Care Provider] - Forms: ED Department Discharge Sepsis Event Note (ED) - Evaluation Sepsis Screening Result: No Definite Risk - Focused Exam Vital Signs: Vital Signs Temp Pulse Resp BP Pulse Ox 11/03/19 12:36 97.4 F 84 16 123/56 L 100 - My Orders Last 24 Hours: My Active Orders 11/03/19 12:37 EKG 12 Lead [EKG Documentation Completion] [RC] STAT UA RFX LINK AND CULT IF INDIC [URIN] Stat 11/03/19 13:25 Vancomycin 1 gm Sodium Chloride 0.9% [Normal Saline (AdvBag)] 250 ml IV ONETIME 11/03/19 13:37 Admission Status [Patient Status] [ADT] Stat Cardiac Monitoring [RC] . DIRECTED CORONAVIRUS COVID-19 PCR PHL Stat - Assessment/Plan Last 24 Hours: My Active Orders 11/03/19 12:37 EKG 12 Lead [EKG Documentation Completion] [RC] STAT UA RFX LINK AND CULT IF INDIC [URIN] Stat 11/03/19 13:25 Vancomycin 1 gm Sodium Chloride 0.9% [Normal Saline (AdvBag)] 250 ml IV ONETIME 11/03/19 13:37 Admission Status [Patient Status] [ADT] Stat Cardiac Monitoring [RC] . DIRECTED CORONAVIRUS COVID-19 PCR PHL Stat
[2019-11-03] MEDS ORDERED: Heparin Sodium 5,000 Units/ML Vial IVPUSH ONE (13:22)
--- NOTE | 2019-11-03 13:30 | US ---
Left lower extremity deep venous ultrasound: Duplex and color Doppler evaluation was obtained of the right common femoral, left common femoral, left superficial femoral, left popliteal, left anterior tibial and left posterior tibial veins. Findings: Thrombosis is seen within the left common femoral, superficial femoral and popliteal veins compatible with deep venous thrombosis. Impression: 1. Fairly extensive deep venous thrombosis within the left lower extremity. Diagnostic code #5 This report was dictated in MDT
[2019-11-03 13:40] LABS: CARBON DIOXIDE,CO2 25.3 mmol/L (21.0-32.0); POTASSIUM,K 4.8 mmol/L (3.5-5.1)
[2019-11-03] MEDS: Heparin Sod,Pork In 0.45% Nacl 25,000 UNIT/500 ML IV.SOLN IV SCH (14:11)
--- NOTE | 2019-11-03 16:50 | PCM.HP.2 ---
H&P History of Present Illness - General Date of Service: 11/03/19 Admit Problem/Dx: Admission Diagnosis/Problem Admission Diagnosis/Problem DVT, Deep venous thrombosis of lower extremity - History of Present Illness Initial Comments - Free Text/Narative: 79 yo female with pmh of sarcoma who presented to the ED with one day history left leg swelling and edema. In the ED she was discovered to have a DVT on ultr asound. PAtient was started on heparin drip and given vancomycin due to concerns of left leg cellulitis. left leg Pain Score (Numeric/FACES): 5 - Related Data Allergies/Adverse Reactions: Allergies Allergy/AdvReac Type Severity Reaction Status Date / Time adhesive Allergy Burning Verified 11/03/19 17:11 cephalexin [Cephalexin] Allergy Hives Verified 11/03/19 17:11 erythromycin lactobionate Allergy Agitation Verified 11/03/19 17:11 [From Erythrocin] iodine Allergy Difficulty Verified 11/03/19 17:11 Breathing Penicillins Allergy Hives Verified 11/03/19 17:11 pregabalin [From Lyrica] Allergy Other Verified 11/03/19 17:11 simvastatin Allergy Muscle Verified 11/03/19 17:11 Aches Home Medications: Home Meds Acetaminophen [Tylenol Extra Strength] 1,000 mg PO Q4H 01/21/14 [History] Calcium Carb, Cit/Magnesium Ox [Calmag Thins Tablet] 1 tab PO DAILY 01/21/14 [History] Furosemide [Lasix] 20 mg PO ASDIRECTED 01/21/14 [History] Ibuprofen 800 mg PO BEDTIME 01/21/14 [History] Lutein/Zeaxanthin [Lutein-Zeaxanthin 25-5 mg Sfgl] 1 cap PO DAILY 01/21/14 [Hi story] Multivitamin [Multivitamins] 1 cap PO DAILY 01/21/14 [History] [place]-3 Fatty Acids/Fish Oil [Fish Oil 1,200 mg Softgel] 1,200 mg PO DAILY 01/21/14 [History] Ubidecarenone [Co Q-10] 100 mg PO DAILY 01/21/14 [History] Vitamin B Complex [Super B-50 Complex] 1 cap PO DAILY 01/21/14 [History] predniSONE 5 mg PO SUTUTHSA 01/21/14 [History] ramipriL [Altace] 10 mg PO DAILY 01/21/14 [History] traMADol [Ultram] 50 mg PO Q6H 01/21/14 [History] Cholecalciferol (Vitamin D3) [Vitamin D3] 2,000 mg PO DAILY 02/27/18 [History] Glucosam/Chond/Hyalu/Cf Borate [Move Free Joint Health Tablet] 1 tab PO DAILY 02/27/18 [History] Vitamin E (Dl,Tocopheryl Acet) [Vitamin E] 200 unit PO DAILY 02/27/18 [History] Ascorbic Acid [Vitamin C] 1 tab PO DAILY 09/02/18 [History] Non-Formulary Medication [NF Drug] 50 mg PO 09/02/18 [History] Fluticasone Propionate 2 sprays NASBOTH DAILY PRN 11/04/19 [History] Levothyroxine [Synthroid] 88 mcg PO DAILY 11/04/19 [History] Omeprazole 40 mg PO DAILY 11/04/19 [History] Pravastatin Sodium [Pravachol] 40 mg PO BEDTIME 11/04/19 [History] Past Medical History HEENT History: Reports: Hard of Hearing, Macular Degeneration, Other (See Below) Other HEENT History: wears glasses, has upper permanent partial denture Cardiovascular History: Reports: Arrhythmia, High Cholesterol, Hypertension, Other (See Below) Other Cardiovascular History: states 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- took aspirin Respiratory History: Reports: Asthma Gastrointestinal History: Reports: GERD Genitourinary History: Reports: UTI, Recurrent Other Genitourinary History: left kidney removed [employer] History: Reports: Other OB/BYN History: 4 c sections and 1 secondary enclosure Musculoskeletal History: Reports: Arthritis, Fracture Other Musculoskeletal History: hx of fx left hand Neurological History: Reports: None Psychiatric History: Reports: None Endocrine/Metabolic History: Reports: Hypothyroidism Hematologic History: Reports: Blood Transfusion(s) Immunologic History: Reports: None Oncologic (Cancer) History: Reports: Other (See Below) Other Oncologic History: liposarcoma cancer Dermatologic History: Reports: None - Infectious Disease History Infectious Disease History: Reports: Chicken Pox, Measles, Mumps - Past Surgical History Head Surgeries/Procedures: Reports: None HEENT Surgical History: Reports: Tonsillectomy Cardiovascular Surgical History: Reports: Cardiac Ablation, Other (See Below) GI Surgical History: Reports: Appendectomy Other GI Surgeries/Procedures: part of colon removed. spleen removed Female Surgical History: Reports: Section Other Female Surgeries/Procedures: x4 Social & Family History - Family History Family Medical History: Noncontributory - Tobacco Use Smoking Status *Q: Former Smoker Used Tobacco, but Quit: Yes Month/Year Tobacco Last Used: 02/1995 - Caffeine Use Caffeine Use: Reports: Coffee Caffeine Use Comment: 2 cups/day - Recreational Drug Use Recreational Drug Use: No - Living Situation & Occupation Living situation: Reports: , with Spouse Occupation: Retired H&P Review of Systems - Review of Systems: Review Of Systems: Comprehensive ROS is negative, except as noted in HPI. Exam - Exam Exam: See Below - Vital Signs Vital Signs: Last Vital Signs Temp 36.4 C 11/03/19 16:32 Pulse 80 11/03/19 16:32 Resp 14 11/03/19 16:32 BP 116/66 11/03/19 16:32 Pulse Ox 99 11/03/19 16:32 Weight: 63.276 kg - Exam General: Alert, Oriented HEENT: Mucosa Moist & Yetter Lungs: Clear to Auscultation, Normal Respiratory Effort Cardiovascular: Regular Rate, Regular Rhythm GI/Abdominal Exam: Normal Bowel Sounds, Soft, Non-Tender Extremities: Other (left leg 50 larger than right, mild erythema of foot to knee.) Skin: Warm, Dry, Intact Neurological: Cranial Nerves Intact, Reflexes Equal Bilateral - Patient Data Lab Results Last 24 hrs: Laboratory Results - last 24 hr 11/03/19 11/03/19 11/03/19 Range/Units 13:05 13:05 13:05 WBC 8.50 (4.0-11.0) K/uL RBC 2.71 L (4.30-5.90) M/uL Hgb 10.5 L (12.0-16.0) g/dL Hct 31.3 L (36.0-46.0) % MCV 115.5 H (80.0-98.0) fL MCH 38.7 H (27.0-32.0) pg MCHC 33.5 (31.0-37.0) g/dL RDW Std Deviation 61.2 (28.0-62.0) fl RDW Coeff of Kristofer 14 (11.0-15.0) % Plt Count 277 (150-400) K/uL MPV 11.80 (7.40-12.00) fL Neut % (Auto) 72.1 (48.0-80.0) % Lymph % (Auto) 12.6 L (16.0-40.0) % Andrews % (Auto) 13.1 (0.0-15.0) % Eos % (Auto) 1.8 (0.0-7.0) % Baso % (Auto) 0.4 (0.0-1.5) % Neut # (Auto) 6.1 H (1.4-5.7) K/uL Lymph # (Auto) 1.1 (0.6-2.4) K/uL Andrews # (Auto) 1.1 H (0.0-0.8) K/uL Eos # (Auto) 0.2 (0.0-0.7) K/uL Baso # (Auto) 0.0 (0.0-0.1) K/uL Nucleated RBC % 0.0 /100WBC Nucleated RBCs # 0 K/uL INR 1.00 APTT (18.6-31.3) SEC Sodium 132 L (136-145) mmol/L Potassium 4.8 (3.5-5.1) mmol/L Chloride 96 L (98-107) mmol/L Carbon Dioxide 25.3 (21.0-32.0) mmol/L BUN 20 H (7.0-18.0) mg/dL Creatinine 1.3 H (0.6-1.0) mg/dL Est Cr Clr Drug Dosing 29.03 mL/min Estimated GFR (MDRD) 39.5 ml/min Glucose 112 H (74-106) mg/dL Calcium 9.3 (8.5-10.1) mg/dL Total Bilirubin 0.4 (0.2-1.0) mg/dL AST 24 (15-37) IU/L ALT 31 (14-63) IU/L Alkaline Phosphatase 86 (46-116) U/L Total Protein 7.4 (6.4-8.2) g/dL Albumin 3.8 (3.4-5.0) g/dL Globulin 3.6 (2.6-4.0) g/dL Albumin/Globulin Ratio 1.1 (0.9-1.6) Urine Color Urine Appearance Urine pH (5.0-8.0) Ur Specific [place] (1.001-1.035) Urine Protein (NEGATIVE) mg/dL Urine Glucose (UA) (NEGATIVE) mg/dL Urine Ketones (NEGATIVE) mg/dL Urine Occult Blood (NEGATIVE) Urine Nitrite (NEGATIVE) Urine Bilirubin (NEGATIVE) Urine Urobilinogen (<2.0) EU/dL Ur Leukocyte Esterase (NEGATIVE) SARS-CoV-2 RNA (TESS) (NEGATIVE) 11/03/19 11/03/19 11/03/19 Range/Units 13:05 13:56 14:18 WBC (4.0-11.0) K/uL RBC (4.30-5.90) M/uL Hgb (12.0-16.0) g/dL Hct (36.0-46.0) % MCV (80.0-98.0) fL MCH (27.0-32.0) pg MCHC (31.0-37.0) g/dL RDW Std Deviation (28.0-62.0) fl RDW Coeff of Kristofer (11.0-15.0) % Plt Count (150-400) K/uL MPV (7.40-12.00) fL Neut % (Auto) (48.0-80.0) % Lymph % (Auto) (16.0-40.0) % Andrews % (Auto) (0.0-15.0) % Eos % (Auto) (0.0-7.0) % Baso % (Auto) (0.0-1.5) % Neut # (Auto) (1.4-5.7) K/uL Lymph # (Auto) (0.6-2.4) K/uL Andrews # (Auto) (0.0-0.8) K/uL Eos # (Auto) (0.0-0.7) K/uL Baso # (Auto) (0.0-0.1) K/uL Nucleated RBC % /100WBC Nucleated RBCs # K/uL INR APTT 23.9 (18.6-31.3) SEC Sodium (136-145) mmol/L Potassium (3.5-5.1) mmol/L Chloride (98-107) mmol/L Carbon Dioxide (21.0-32.0) mmol/L BUN (7.0-18.0) mg/dL Creatinine (0.6-1.0) mg/dL Est Cr Clr Drug Dosing mL/min Estimated GFR (MDRD) ml/min Glucose (74-106) mg/dL Calcium (8.5-10.1) mg/dL Total Bilirubin (0.2-1.0) mg/dL AST (15-37) IU/L ALT (14-63) IU/L Alkaline Phosphatase (46-116) U/L Total Protein (6.4-8.2) g/dL Albumin (3.4-5.0) g/dL Globulin (2.6-4.0) g/dL Albumin/Globulin Ratio (0.9-1.6) Urine Color YELLOW Urine Appearance CLEAR Urine pH 6.0 (5.0-8.0) Ur Specific [place] 1.010 (1.001-1.035) Urine Protein NEGATIVE (NEGATIVE) mg/dL Urine Glucose (UA) NEGATIVE (NEGATIVE) mg/dL Urine Ketones NEGATIVE (NEGATIVE) mg/dL Urine Occult Blood NEGATIVE (NEGATIVE) Urine Nitrite NEGATIVE (NEGATIVE) Urine Bilirubin NEGATIVE (NEGATIVE) Urine Urobilinogen 0.2 (<2.0) EU/dL Ur Leukocyte Esterase NEGATIVE (NEGATIVE) SARS-CoV-2 RNA (TESS) NEGATIVE (NEGATIVE) Result Diagrams: 11/04/19 07:35 11/04/19 07:35 Sepsis Event Note - Evaluation Sepsis Screening Result: No Definite Risk - Focused Exam Vital Signs: Vital Signs Temp Pulse Resp BP Pulse Ox 11/03/19 16:32 36.4 C 80 14 116/66 99 11/03/19 15:36 81 115/47 L 99 11/03/19 15:06 82 117/57 L 100 11/03/19 14:37 74 115/46 L 98 11/03/19 14:20 81 100 11/03/19 13:37 76 140/84 100 11/03/19 13:00 85 100 11/03/19 12:36 36.3 C 84 16 123/56 L 100 Problem List Initiated/Reviewed/Updated: Yes Orders Last 24hrs: Active Orders 24 hr Category Date Time Status Admission Status [Patient Status] [ADT] Stat ADT 11/03/19 13:37 Active Cardiac Monitoring [RC] . DIRECTED Care 11/03/19 13:37 Active Oxygen Therapy [RC] PRN Care 11/03/19 16:45 Ordered Up ad Traci [RC] ASDIRECTED Care 11/03/19 16:44 Ordered VTE/DVT Education [RC] PER UNIT ROUTINE Care 11/03/19 16:45 Ordered Vital Signs [RC] Q4H Care 11/03/19 16:45 Ordered Regular Diet [DIET] Diet 11/03/19 Breakfast Ordered Abdomen Pelvis wo Cont [CT] Routine Exams 11/03/19 16:44 Ordered BASIC METABOLIC PANEL,BMP [CHEM] AM Lab 11/04/19 05:11 Ordered CBC WITH AUTO DIFF [HEME] AM Lab 11/04/19 05:11 Ordered PTT,PARTIAL THROMBOPLSTIN TIME [COAG] Q6H Lab 11/03/19 19:30 Ordered PTT,PARTIAL THROMBOPLSTIN TIME [COAG] Q6H Lab 11/04/19 01:30 Ordered PTT,PARTIAL THROMBOPLSTIN TIME [COAG] Q6H Lab 11/04/19 07:30 Ordered PTT,PARTIAL THROMBOPLSTIN TIME [COAG] Q6H Lab 11/04/19 13:30 Ordered PTT,PARTIAL THROMBOPLSTIN TIME [COAG] Q6H Lab 11/04/19 19:30 Ordered PTT,PARTIAL THROMBOPLSTIN TIME [COAG] Q6H Lab 11/05/19 01:30 Ordered VANCOMYCIN TROUGH [CHEM] Timed Lab 11/06/19 14:30 Ordered Heparin Sod,Pork In 0.45% Nacl [Heparin-1/2Ns 25,000 Med 11/03/19 13:30 Active Units/500] 25,000 unit in 500 ml IV TITRATE Levothyroxine [Synthroid] Med 11/04/19 09:00 Ordered 88 mcg PO QAM Pharmacy to Dose - Vancomycin Med 11/03/19 14:45 Pending 1 dose .XX ASDIRECTED Vancomycin [Vancocin] 1 gm Med 11/04/19 15:00 Active Sodium Chloride 0.9% [Normal Saline (AdvBag)] 250 ml IV Q24H Resuscitation Status Routine Resus Stat 11/03/19 16:44 Ordered Medication Orders Heparin Sodium/Sodium Chloride (Heparin-1/2ns 25,000 Units/500) 25,000 unit in 500 mls @ 22.045 mls/hr IV TITRATE JOAN; Protocol Last Admin: 11/03/19 14:11 Dose: 18 units/kg/hr, 22.045 mls/hr Documented by: MARIYA Cosigned by: ARSH Vancomycin HCl 1 gm/ Sodium (Chloride) 250 mls @ 166 mls/hr IV Q24H [facility] Vancomycin HCl (Pharmacy To Dose - Vancomycin) 1 dose .XX ASDIRECTED [facility] Assessment/Plan Comment:: 79 yo female admitted for left leg DVT. Will treat with heparin drip.
--- NOTE | 2019-11-03 18:09 | CT ---
CT abdomen and pelvis Technique: Multiple axial sections were obtained from above the dome of the diaphragm inferiorly through the pubic symphysis. Intravenous and oral contrast not given. Comparison: Prior CT abdomen and pelvis exam of 09/02/18. Findings: Visualized lung bases show nothing acute. Liver contains no focal parenchymal abnormality. Previous surgery is noted with interval left nephrectomy from prior study. Fatty mass noted on prior study has also been resected. Surgical clips are seen. Right kidney shows no hydronephrosis or discrete mass. Aorta shows atherosclerotic calcification without aneurysm. Gallbladder contains no calcified gallstones. No retroperitoneal adenopathy or mesenteric abnormalities are appreciated. No pelvic mass or adenopathy is identified. Increased stoo is l seen throughout the colon. Appendix not visualized with certainty. No inflammatory change or free fluid is seen. Bone window settings were reviewed. Scoliosis and diffuse degenerative change is noted within the spine. Degenerative change with subchondral cysts are noted within the right hip. Smaller subchondral cysts are seen within the left hip. Diffuse subcutaneous edema is noted within the left lower extremity. Upper left lower extremity is markedly enlarged as compared to the right side. Impression: 1. Interval surgery on the left side. 2. Markedly enlarged left lower extremity as compared to the right side with diffuse subcutaneous edema within the visualized left lower extremity. 3. Increased stool throughout the colon. 4. Other findings as noted above which are nonacute. Diagnostic code #3 This report was dictated in MDT
[2019-11-04] MEDS: Levothyroxine 88 MCG Tab PO SCH (06:11)
[2019-11-04 08:04] LABS: POTASSIUM,K 4.3 mmol/L (3.5-5.1)
[2019-11-04] MEDS ORDERED: Fluticasone Propionate Nasal Spray 16 GM Bottle NASBOTH PRN (10:42)
[2019-11-04] MEDS ORDERED: Ibuprofen 800 MG Tab PO PRN (10:42)
[2019-11-04] MEDS ORDERED: traMADol 50 MG Tab PO PRN (10:42)
[2019-11-04] MEDS ORDERED: Levothyroxine 88 MCG Tab PO SCH (10:45)
--- NOTE | 2019-11-04 10:49 | PCM.PN ---
- General Info Date of Service: 11/04/19 - Review of Systems Systems Review Comment:: reports minimal improvement in swelling of right leg - Patient Data Vitals - Most Recent: Last Vital Signs Temp 36.6 C 11/04/19 07:08 Pulse 87 11/04/19 07:08 Resp 14 11/04/19 07:08 BP 110/56 L 11/04/19 07:08 Pulse Ox 96 11/04/19 07:08 Weight - Most Recent: 63.276 kg I&O - Last 24 Hours: Intake & Output 11/03/19 11/04/19 11/04/19 22:59 06:59 14:59 Intake Total 2243 Output Total 1000 Balance 1243 Lab Results Last 24 Hours: Laboratory Results - last 24 hr 11/03/19 11/03/19 11/03/19 Range/Units 13:05 13:05 13:05 WBC 8.50 (4.0-11.0) K/uL RBC 2.71 L (4.30-5.90) M/uL Hgb 10.5 L (12.0-16.0) g/dL Hct 31.3 L (36.0-46.0) % MCV 115.5 H (80.0-98.0) fL MCH 38.7 H (27.0-32.0) pg MCHC 33.5 (31.0-37.0) g/dL RDW Std Deviation 61.2 (28.0-62.0) fl RDW Coeff of Kristofer 14 (11.0-15.0) % Plt Count 277 (150-400) K/uL MPV 11.80 (7.40-12.00) fL Neut % (Auto) 72.1 (48.0-80.0) % Lymph % (Auto) 12.6 L (16.0-40.0) % Hendry % (Auto) 13.1 (0.0-15.0) % Eos % (Auto) 1.8 (0.0-7.0) % Baso % (Auto) 0.4 (0.0-1.5) % Neut # (Auto) 6.1 H (1.4-5.7) K/uL Lymph # (Auto) 1.1 (0.6-2.4) K/uL Hendry # (Auto) 1.1 H (0.0-0.8) K/uL Eos # (Auto) 0.2 (0.0-0.7) K/uL Baso # (Auto) 0.0 (0.0-0.1) K/uL Nucleated RBC % 0.0 /100WBC Nucleated RBCs # 0 K/uL INR 1.00 APTT (18.6-31.3) SEC Sodium 132 L (136-145) mmol/L Potassium 4.8 (3.5-5.1) mmol/L Chloride 96 L (98-107) mmol/L Carbon Dioxide 25.3 (21.0-32.0) mmol/L BUN 20 H (7.0-18.0) mg/dL Creatinine 1.3 H (0.6-1.0) mg/dL Est Cr Clr Drug Dosing 29.03 mL/min Estimated GFR (MDRD) 39.5 ml/min Glucose 112 H (74-106) mg/dL Calcium 9.3 (8.5-10.1) mg/dL Total Bilirubin 0.4 (0.2-1.0) mg/dL AST 24 (15-37) IU/L ALT 31 (14-63) IU/L Alkaline Phosphatase 86 (46-116) U/L Total Protein 7.4 (6.4-8.2) g/dL Albumin 3.8 (3.4-5.0) g/dL Globulin 3.6 (2.6-4.0) g/dL Albumin/Globulin Ratio 1.1 (0.9-1.6) Urine Color Urine Appearance Urine pH (5.0-8.0) Ur Specific [place] (1.001-1.035) Urine Protein (NEGATIVE) mg/dL Urine Glucose (UA) (NEGATIVE) mg/dL Urine Ketones (NEGATIVE) mg/dL Urine Occult Blood (NEGATIVE) Urine Nitrite (NEGATIVE) Urine Bilirubin (NEGATIVE) Urine Urobilinogen (<2.0) EU/dL Ur Leukocyte Esterase (NEGATIVE) SARS-CoV-2 RNA (TESS) (NEGATIVE) 11/03/19 11/03/19 11/03/19 Range/Units 13:05 13:56 14:18 WBC (4.0-11.0) K/uL RBC (4.30-5.90) M/uL Hgb (12.0-16.0) g/dL Hct (36.0-46.0) % MCV (80.0-98.0) fL MCH (27.0-32.0) pg MCHC (31.0-37.0) g/dL RDW Std Deviation (28.0-62.0) fl RDW Coeff of Kristofre (11.0-15.0) % Plt Count (150-400) K/uL MPV (7.40-12.00) fL Neut % (Auto) (48.0-80.0) % Lymph % (Auto) (16.0-40.0) % Hendry % (Auto) (0.0-15.0) % Eos % (Auto) (0.0-7.0) % Baso % (Auto) (0.0-1.5) % Neut # (Auto) (1.4-5.7) K/uL Lymph # (Auto) (0.6-2.4) K/uL Hendry # (Auto) (0.0-0.8) K/uL Eos # (Auto) (0.0-0.7) K/uL Baso # (Auto) (0.0-0.1) K/uL Nucleated RBC % /100WBC Nucleated RBCs # K/uL INR APTT 23.9 (18.6-31.3) SEC Sodium (136-145) mmol/L Potassium (3.5-5.1) mmol/L Chloride (98-107) mmol/L Carbon Dioxide (21.0-32.0) mmol/L BUN (7.0-18.0) mg/dL Creatinine (0.6-1.0) mg/dL Est Cr Clr Drug Dosing mL/min Estimated GFR (MDRD) ml/min Glucose (74-106) mg/dL Calcium (8.5-10.1) mg/dL Total Bilirubin (0.2-1.0) mg/dL AST (15-37) IU/L ALT (14-63) IU/L Alkaline Phosphatase (46-116) U/L Total Protein (6.4-8.2) g/dL Albumin (3.4-5.0) g/dL Globulin (2.6-4.0) g/dL Albumin/Globulin Ratio (0.9-1.6) Urine Color YELLOW Urine Appearance CLEAR Urine pH 6.0 (5.0-8.0) Ur Specific [place] 1.010 (1.001-1.035) Urine Protein NEGATIVE (NEGATIVE) mg/dL Urine Glucose (UA) NEGATIVE (NEGATIVE) mg/dL Urine Ketones NEGATIVE (NEGATIVE) mg/dL Urine Occult Blood NEGATIVE (NEGATIVE) Urine Nitrite NEGATIVE (NEGATIVE) Urine Bilirubin NEGATIVE (NEGATIVE) Urine Urobilinogen 0.2 (<2.0) EU/dL Ur Leukocyte Esterase NEGATIVE (NEGATIVE) SARS-CoV-2 RNA (TESS) NEGATIVE (NEGATIVE) 11/03/19 11/04/19 11/04/19 Range/Units 19:34 01:30 07:35 WBC (4.0-11.0) K/uL RBC (4.30-5.90) M/uL Hgb (12.0-16.0) g/dL Hct (36.0-46.0) % MCV (80.0-98.0) fL MCH (27.0-32.0) pg MCHC (31.0-37.0) g/dL RDW Std Deviation (28.0-62.0) fl RDW Coeff of Kristofer (11.0-15.0) % Plt Count (150-400) K/uL MPV (7.40-12.00) fL Neut % (Auto) (48.0-80.0) % Lymph % (Auto) (16.0-40.0) % Hendry % (Auto) (0.0-15.0) % Eos % (Auto) (0.0-7.0) % Baso % (Auto) (0.0-1.5) % Neut # (Auto) (1.4-5.7) K/uL Lymph # (Auto) (0.6-2.4) K/uL Hendry # (Auto) (0.0-0.8) K/uL Eos # (Auto) (0.0-0.7) K/uL Baso # (Auto) (0.0-0.1) K/uL Nucleated RBC % /100WBC Nucleated RBCs # K/uL INR APTT 103.9 H 55.0 H 57.9 H (18.6-31.3) SEC Sodium (136-145) mmol/L Potassium (3.5-5.1) mmol/L Chloride (98-107) mmol/L Carbon Dioxide (21.0-32.0) mmol/L BUN (7.0-18.0) mg/dL Creatinine (0.6-1.0) mg/dL Est Cr Clr Drug Dosing mL/min Estimated GFR (MDRD) ml/min Glucose (74-106) mg/dL Calcium (8.5-10.1) mg/dL Total Bilirubin (0.2-1.0) mg/dL AST (15-37) IU/L ALT (14-63) IU/L Alkaline Phosphatase (46-116) U/L Total Protein (6.4-8.2) g/dL Albumin (3.4-5.0) g/dL Globulin (2.6-4.0) g/dL Albumin/Globulin Ratio (0.9-1.6) Urine Color Urine Appearance Urine pH (5.0-8.0) Ur Specific [place] (1.001-1.035) Urine Protein (NEGATIVE) mg/dL Urine Glucose (UA) (NEGATIVE) mg/dL Urine Ketones (NEGATIVE) mg/dL Urine Occult Blood (NEGATIVE) Urine Nitrite (NEGATIVE) Urine Bilirubin (NEGATIVE) Urine Urobilinogen (<2.0) EU/dL Ur Leukocyte Esterase (NEGATIVE) SARS-CoV-2 RNA (TESS) (NEGATIVE) 11/04/19 11/04/19 Range/Units 07:35 07:35 WBC 6.40 (4.0-11.0) K/uL RBC 2.49 L (4.30-5.90) M/uL Hgb 9.7 L (12.0-16.0) g/dL Hct 28.1 L (36.0-46.0) % MCV 112.9 H (80.0-98.0) fL MCH 39.0 H (27.0-32.0) pg MCHC 34.5 (31.0-37.0) g/dL RDW Std Deviation 58.2 (28.0-62.0) fl RDW Coeff of Kristofer 14 (11.0-15.0) % Plt Count 280 (150-400) K/uL MPV 11.90 (7.40-12.00) fL Neut % (Auto) 59.0 (48.0-80.0) % Lymph % (Auto) 25.0 (16.0-40.0) % Hendry % (Auto) 12.5 (0.0-15.0) % Eos % (Auto) 2.7 (0.0-7.0) % Baso % (Auto) 0.8 (0.0-1.5) % Neut # (Auto) 3.8 (1.4-5.7) K/uL Lymph # (Auto) 1.6 (0.6-2.4) K/uL Hendry # (Auto) 0.8 (0.0-0.8) K/uL Eos # (Auto) 0.2 (0.0-0.7) K/uL Baso # (Auto) 0.1 (0.0-0.1) K/uL Nucleated RBC % 0.3 /100WBC Nucleated RBCs # 0 K/uL INR APTT (18.6-31.3) SEC Sodium 126 L (136-145) mmol/L Potassium 4.3 (3.5-5.1) mmol/L Chloride 92 L (98-107) mmol/L Carbon Dioxide 23.0 (21.0-32.0) mmol/L BUN 18 (7.0-18.0) mg/dL Creatinine 1.1 H (0.6-1.0) mg/dL Est Cr Clr Drug Dosing 34.30 mL/min Estimated GFR (MDRD) 47.9 ml/min Glucose 101 (74-106) mg/dL Calcium 8.4 L (8.5-10.1) mg/dL Total Bilirubin (0.2-1.0) mg/dL AST (15-37) IU/L ALT (14-63) IU/L Alkaline Phosphatase (46-116) U/L Total Protein (6.4-8.2) g/dL Albumin (3.4-5.0) g/dL Globulin (2.6-4.0) g/dL Albumin/Globulin Ratio (0.9-1.6) Urine Color Urine Appearance Urine pH (5.0-8.0) Ur Specific [place] (1.001-1.035) Urine Protein (NEGATIVE) mg/dL Urine Glucose (UA) (NEGATIVE) mg/dL Urine Ketones (NEGATIVE) mg/dL Urine Occult Blood (NEGATIVE) Urine Nitrite (NEGATIVE) Urine Bilirubin (NEGATIVE) Urine Urobilinogen (<2.0) EU/dL Ur Leukocyte Esterase (NEGATIVE) SARS-CoV-2 RNA (TESS) (NEGATIVE) Med Orders - Current: Current Medications Acetaminophen (Tylenol Extra Strength) 1,000 mg PO Q4H JOAN Fluticasone Propionate (Flonase) gm NASBOTH DAILY PRN PRN Reason: Allergies Heparin Sodium/Sodium Chloride (Heparin-1/2ns 25,000 Units/500) 25,000 unit in 500 mls @ 22.045 mls/hr IV TITRATE JOAN; Protocol Last Titration: 11/04/19 09:19 Dose: 15 units/kg/hr, 18.371 mls/hr Documented by: Vancomycin HCl 1 gm/ Sodium (Chloride) 250 mls @ 166 mls/hr IV Q24H JOAN Ibuprofen (Motrin) 800 mg PO BEDTIME PRN PRN Reason: Pain Levothyroxine Sodium (Synthroid) 88 mcg PO DAILY@0700 JOAN Last Admin: 11/04/19 06:11 Dose: 88 mcg Documented by: Levothyroxine Sodium (Synthroid) 88 mcg PO DAILY JOAN Non-Formulary Medication (Ascorbic Acid [Vitamin C]) 1 tab PO DAILY OJAN Non-Formulary Medication (Calcium Carb, Cit/Magnesium Ox [Calmag Thins Tablet]) 1 tab PO DAILY JOAN Non-Formulary Medication (Cholecalciferol (Vitamin D3) [Vitamin D3]) 2,000 mg PO DAILY JOAN Non-Formulary Medication (Omeprazole [Omeprazole]) 40 mg PO DAILY JOAN Non-Formulary Medication (Pravastatin Sodium) 40 mg PO BEDTIME JOAN Non-Formulary Medication (Vitamin E (Dl,Tocopheryl Acet) [Vitamin E]) 200 unit PO DAILY JOAN Non-Formulary Medication (Vitamin B Complex) 1 cap PO DAILY JOAN Non-Formulary Medication (Ubidecarenone) 100 mg PO DAILY JOAN Non-Formulary Medication ([place]-3 Fatty Acids/Fish Oil [Fish Oil 1,200 Mg Softgel]) 1,200 mg PO DAILY JOAN Non-Formulary Medication (Lutein/Zeaxanthin [Lutein-Zeaxanthin 25-5 Mg Sfgl]) 1 cap PO DAILY JOAN Non-Formulary Medication (Multivitamin [Multivitamins]) 1 cap PO DAILY JOAN Oxycodone HCl (Oxycodone) 5 mg PO Q4H PRN PRN Reason: Pain Prednisone (Prednisone) 5 mg PO SUTUTHSA [facility] Ramipril (Altace) 10 mg PO DAILY [facility] Tramadol HCl (Ultram) 50 mg PO Q6H PRN PRN Reason: Pain Vancomycin HCl (Pharmacy To Dose - Vancomycin) 1 dose .XX ASDIRECTED [facility] Discontinued Medications Heparin Sodium (Porcine) (Heparin Sodium) 5,000 units IVPUSH ONETIME ONE Stop: 11/03/19 13:23 Last Admin: 11/03/19 14:05 Dose: 5,000 units Documented by: Vancomycin HCl 1 gm/ Sodium (Chloride) 250 mls @ 166 mls/hr IV ONETIME ONE Stop: 11/03/19 14:55 Last Admin: 11/03/19 14:02 Dose: 166 mls/hr Documented by: - Exam General: Alert, Oriented Lungs: Clear to Auscultation, Normal Respiratory Effort Cardiovascular: Regular Rate, Regular Rhythm GI/Abdominal Exam: Soft, Non-Tender Extremities: Pedal Edema (+4 edema of left leg, mild erythema) Neurological: No New Focal Deficit Sepsis Event Note - Evaluation Sepsis Screening Result: No Definite Risk - Focused Exam Vital Signs: Vital Signs Temp Pulse Resp BP Pulse Ox 11/04/19 07:08 36.6 C 87 14 110/56 L 96 11/04/19 03:00 36.6 C 88 16 113/59 L 95 11/03/19 23:00 36.7 C 95 14 101/55 L 95 - Problem List Review Problem List Initiated/Reviewed/Updated: Yes - My Orders Last 24 Hours: My Active Orders 11/03/19 14:45 Pharmacy to Dose - Vancomycin 1 dose .XX ASDIRECTED 11/03/19 16:44 Up ad Traci [RC] ASDIRECTED Resuscitation Status Routine 11/03/19 16:45 Oxygen Therapy [RC] PRN VTE/DVT Education [RC] PER UNIT ROUTINE Vital Signs [RC] Q4H 11/03/19 16:51 Obtain Past Medical Record [OM.PC] Routine 11/04/19 07:00 Levothyroxine [Synthroid] 88 mcg PO DAILY@0700 11/04/19 10:42 Fluticasone Propionate [Flonase] 2 sprays NASBOTH DAILY PRN 11/04/19 10:42 Ibuprofen [Motrin] 800 mg PO BEDTIME PRN traMADol [Ultram] 50 mg PO Q6H PRN 11/04/19 10:45 Acetaminophen [Tylenol Extra Strength] 1,000 mg PO Q4H Levothyroxine [Synthroid] 88 mcg PO DAILY oxyCODONE 5 mg PO Q4H PRN ramipriL [Altace] 10 mg PO DAILY 11/04/19 21:00 Pravastatin Sodium 40 mg PO BEDTIME 11/05/19 09:00 Ascorbic Acid [Vitamin C] 1 tab PO DAILY Calcium Carb, Cit/Magnesium Ox [Calmag Thins Tablet] 1 tab PO DAILY Cholecalciferol (Vitamin D3) [Vitamin D3] 2,000 mg PO DAILY Lutein/Zeaxanthin [Lutein-Zeaxanthin 25-5 mg Sfgl] 1 cap PO DAILY Multivitamin [Multivitamins] 1 cap PO DAILY [place]-3 Fatty Acids/Fish Oil [Fish Oil 1,200 mg Softgel] 1,200 mg PO DAILY Omeprazole [Omeprazole] 40 mg PO DAILY Ubidecarenone 100 mg PO DAILY Vitamin B Complex 1 cap PO DAILY Vitamin E (Dl,Tocopheryl Acet) [Vitamin E] 200 unit PO DAILY 11/05/19 10:42 predniSONE 5 mg PO SUTUTHSA - Plan Plan:: 79 yo female admitted for left leg DVT. We will continue heparin drip. Hyponatremia, will continue to monitor ins/outs. Tramadol for pain prn.
[2019-11-04] MEDS: Fish Oil/Omega-3 Fatty Acids 1 Gm Cap PO SCH (13:46)
[2019-11-04] MEDS: Beta-Carotene (Vitamin A) w/Vitamin C & E plus Minerals Tab PO SCH (13:46)
[2019-11-04] MEDS: Omeprazole 20 MG Cap.CR PO SCH (13:46)
[2019-11-04] MEDS: Ascorbic Acid 500 MG Tab PO SCH (13:46)
[2019-11-04] MEDS: Calcium Carbonate/Vitamin D3 1500 MG-400 Units Tab PO SCH (13:46)
[2019-11-04] MEDS: Multivitamin Tab PO SCH (13:46)
[2019-11-04] MEDS: Cholecalciferol (Vitamin D3) 25 MCG Tab PO SCH (13:52)
[2019-11-04] MEDS: Acetaminophen 500 MG Tab PO PRN (13:54)
[2019-11-04] MEDS: Heparin Sod,Pork In 0.45% Nacl 25,000 UNIT/500 ML IV.SOLN IV SCH (17:12)
[2019-11-04] MEDS: oxyCODONE 5 MG Tab PO PRN (21:31)
[2019-11-04] MEDS: Pravastatin 40 MG Tab PO SCH (21:32)
[2019-11-05] MEDS: Levothyroxine 88 MCG Tab PO SCH (07:32)
[2019-11-05] MEDS: Omeprazole 20 MG Cap.CR PO SCH (07:32)
[2019-11-05] MEDS ORDERED: VITAMIN B COMPLEX PO SCH (09:00)
[2019-11-05] MEDS ORDERED: VITAMIN E 200 UNIT PO SCH (09:00)
[2019-11-05] MEDS ORDERED: Non-Formulary Medication 1 Each (Ubidecarenone 100 MG) PO SCH (09:00)
[2019-11-05] MEDS: Multivitamin Tab PO SCH (09:18)
[2019-11-05] MEDS: Beta-Carotene (Vitamin A) w/Vitamin C & E plus Minerals Tab PO SCH (09:20)
[2019-11-05] MEDS: Ascorbic Acid 500 MG Tab PO SCH (09:22)
[2019-11-05] MEDS: oxyCODONE 5 MG Tab PO PRN ×2 (09:23→20:26)
[2019-11-05] MEDS: Calcium Carbonate/Vitamin D3 1500 MG-400 Units Tab PO SCH (09:25)
[2019-11-05] MEDS: Fish Oil/Omega-3 Fatty Acids 1 Gm Cap PO SCH (09:26)
[2019-11-05] MEDS: Cholecalciferol (Vitamin D3) 25 MCG Tab PO SCH (09:30)
[2019-11-05 10:03] LABS: CARBON DIOXIDE,CO2 24.1 mmol/L (21.0-32.0); POTASSIUM,K 4.5 mmol/L (3.5-5.1)
[2019-11-05] MEDS: predniSONE 10 MG Tab PO SCH (11:00)
--- NOTE | 2019-11-05 14:05 | PCM.PN ---
- General Info Date of Service: 11/05/19 - Review of Systems Systems Review Comment:: swelling of left foot has improved - Patient Data Vitals - Most Recent: Last Vital Signs Temp 36.4 C 11/05/19 11:23 Pulse 81 11/05/19 11:23 Resp 17 11/05/19 11:23 BP 98/52 L 11/05/19 11:23 Pulse Ox 99 11/05/19 11:23 Weight - Most Recent: 63.276 kg I&O - Last 24 Hours: Intake & Output 11/04/19 11/05/19 11/05/19 22:59 06:59 14:59 Intake Total 1260 500 Output Total 690 1700 Balance 570 -1200 Lab Results Last 24 Hours: Laboratory Results - last 24 hr 11/04/19 11/05/19 11/05/19 Range/Units 19:44 07:45 07:45 WBC 6.35 (4.0-11.0) K/uL RBC 2.40 L (4.30-5.90) M/uL Hgb 9.3 L (12.0-16.0) g/dL Hct 27.3 L (36.0-46.0) % MCV 113.8 H (80.0-98.0) fL MCH 38.8 H (27.0-32.0) pg MCHC 34.1 (31.0-37.0) g/dL RDW Std Deviation 60.4 (28.0-62.0) fl RDW Coeff of Kristofer 15 (11.0-15.0) % Plt Count 338 (150-400) K/uL MPV 12.80 H (7.40-12.00) fL Neut % (Auto) 56.1 (48.0-80.0) % Lymph % (Auto) 26.0 (16.0-40.0) % [place] % (Auto) 13.9 (0.0-15.0) % Eos % (Auto) 3.1 (0.0-7.0) % Baso % (Auto) 0.9 (0.0-1.5) % Neut # (Auto) 3.6 (1.4-5.7) K/uL Lymph # (Auto) 1.7 (0.6-2.4) K/uL [place] # (Auto) 0.9 H (0.0-0.8) K/uL Eos # (Auto) 0.2 (0.0-0.7) K/uL Baso # (Auto) 0.1 (0.0-0.1) K/uL Nucleated RBC % 0.0 /100WBC Nucleated RBCs # 0 K/uL APTT 55.2 H 63.5 H (18.6-31.3) SEC Sodium (136-145) mmol/L Potassium (3.5-5.1) mmol/L Chloride (98-107) mmol/L Carbon Dioxide (21.0-32.0) mmol/L BUN (7.0-18.0) mg/dL Creatinine (0.6-1.0) mg/dL Est Cr Clr Drug Dosing mL/min Estimated GFR (MDRD) ml/min Glucose (74-106) mg/dL Calcium (8.5-10.1) mg/dL 11/05/19 Range/Units 07:45 WBC (4.0-11.0) K/uL RBC (4.30-5.90) M/uL Hgb (12.0-16.0) g/dL Hct (36.0-46.0) % MCV (80.0-98.0) fL MCH (27.0-32.0) pg MCHC (31.0-37.0) g/dL RDW Std Deviation (28.0-62.0) fl RDW Coeff of Kristofer (11.0-15.0) % Plt Count (150-400) K/uL MPV (7.40-12.00) fL Neut % (Auto) (48.0-80.0) % Lymph % (Auto) (16.0-40.0) % [place] % (Auto) (0.0-15.0) % Eos % (Auto) (0.0-7.0) % Baso % (Auto) (0.0-1.5) % Neut # (Auto) (1.4-5.7) K/uL Lymph # (Auto) (0.6-2.4) K/uL [place] # (Auto) (0.0-0.8) K/uL Eos # (Auto) (0.0-0.7) K/uL Baso # (Auto) (0.0-0.1) K/uL Nucleated RBC % /100WBC Nucleated RBCs # K/uL APTT (18.6-31.3) SEC Sodium 129 L (136-145) mmol/L Potassium 4.5 (3.5-5.1) mmol/L Chloride 97 L (98-107) mmol/L Carbon Dioxide 24.1 (21.0-32.0) mmol/L BUN 17 (7.0-18.0) mg/dL Creatinine 1.1 H (0.6-1.0) mg/dL Est Cr Clr Drug Dosing 34.30 mL/min Estimated GFR (MDRD) 47.9 ml/min Glucose 100 (74-106) mg/dL Calcium 8.8 (8.5-10.1) mg/dL Med Orders - Current: Current Medications Acetaminophen (Tylenol Extra Strength) 1,000 mg PO Q6H PRN PRN Reason: PAIN Last Admin: 11/04/19 13:54 Dose: 1,000 mg Documented by: Ascorbic Acid (Vitamin C) 500 mg PO DAILY [facility] Last Admin: 11/05/19 09:22 Dose: 500 mg Documented by: Calcium Carbonate (Caltrate 600+D 1500 Mg-400 Units) 1 tab PO DAILY JOAN Last Admin: 11/05/19 09:25 Dose: 1 tab Documented by: Cholecalciferol (Vitamin D3) 25 mcg PO DAILY [facility] Last Admin: 11/05/19 09:30 Dose: 25 mcg Documented by: Fish Oil (Fish Oil) 1 gm PO DAILY [facility] Last Admin: 11/05/19 09:26 Dose: 1 gm Documented by: Fluticasone Propionate (Flonase) 2 gm NASBOTH DAILY PRN PRN Reason: Allergies Heparin Sodium/Sodium Chloride (Heparin-1/2ns 25,000 Units/500) 25,000 unit in 500 mls @ 22.045 mls/hr IV TITRATE JOAN; Protocol Last Titration: 11/05/19 09:39 Dose: 15 units/kg/hr, 18.371 mls/hr Documented by: Vancomycin HCl 1 gm/ Sodium (Chloride) 250 mls @ 166 mls/hr IV Q24H [facility] Last Admin: 11/04/19 17:07 Dose: 166 mls/hr Documented by: Ibuprofen (Motrin) 800 mg PO BEDTIME PRN PRN Reason: Pain Levothyroxine Sodium (Synthroid) 88 mcg PO DAILY@0700 [facility] Last Admin: 11/05/19 07:32 Dose: 88 mcg Documented by: Multivitamins/Minerals (Prosight) 1 tab PO DAILY [facility] Last Admin: 11/05/19 09:20 Dose: 1 tab Documented by: Multivitamins/Minerals/Vitamin C (Tab-A-Han) 1 tab PO DAILY [facility] Last Admin: 11/05/19 09:18 Dose: 1 tab Documented by: Omeprazole (Omeprazole) 40 mg PO ACBREAKFAST [facility] Last Admin: 11/05/19 07:32 Dose: 40 mg Documented by: Oxycodone HCl (Oxycodone) 5 mg PO Q4H PRN PRN Reason: Pain Last Admin: 11/05/19 09:23 Dose: 5 mg Documented by: Pravastatin Sodium (Pravachol) 40 mg PO BEDTIME [facility] Last Admin: 11/04/19 21:32 Dose: 40 mg Documented by: Prednisone (Prednisone) 5 mg PO SUTUTHSA [facility] Last Admin: 11/05/19 11:00 Dose: 5 mg Documented by: Ramipril (Altace) 10 mg PO DAILY [facility] Last Admin: 11/05/19 09:30 Dose: Not Given Documented by: Tramadol HCl (Ultram) 50 mg PO Q6H PRN PRN Reason: Pain Last Admin: 11/04/19 18:02 Dose: 50 mg Documented by: Vancomycin HCl (Pharmacy To Dose - Vancomycin) 1 dose .XX ASDIRECTED [facility] Discontinued Medications Heparin Sodium (Porcine) (Heparin Sodium) 5,000 units IVPUSH ONETIME ONE Stop: 11/03/19 13:23 Last Admin: 11/03/19 14:05 Dose: 5,000 units Documented by: Vancomycin HCl 1 gm/ Sodium (Chloride) 250 mls @ 166 mls/hr IV ONETIME ONE Stop: 11/03/19 14:55 Last Admin: 11/03/19 14:02 Dose: 166 mls/hr Documented by: Vancomycin HCl 1 gm/ Sodium (Chloride) 250 mls @ 166 mls/hr IV Q24H [facility] Last Admin: 11/04/19 17:13 Dose: Not Given Documented by: - Exam General: Alert, Oriented Neck: Supple Lungs: Clear to Auscultation, Normal Respiratory Effort Cardiovascular: Regular Rate, Regular Rhythm Extremities: Other (edema of left foot has improved, mild improvment in edema of leg, calf erythema improving.) Sepsis Event Note - Evaluation Sepsis Screening Result: No Definite Risk - Focused Exam Vital Signs: Vital Signs Temp Pulse Resp BP BP Pulse Ox 11/05/19 11:23 36.4 C 81 17 98/52 L 99 11/05/19 09:30 103/38 L 11/05/19 07:09 37.0 C 84 16 92/40 L 96 11/05/19 03:00 36.1 C 84 18 95/51 L 94 L - Problem List Review Problem List Initiated/Reviewed/Updated: Yes - My Orders Last 24 Hours: My Active Orders 11/04/19 17:15 Vancomycin [Vancocin] 1 gm Sodium Chloride 0.9% [Normal Saline (AdvBag)] 250 ml IV Q24H 11/04/19 19:30 Communication Order [RC] DAILY 11/04/19 21:00 Pravastatin [Pravachol] 40 mg PO BEDTIME 11/05/19 10:42 predniSONE 5 mg PO SUTUTHSA 11/06/19 05:11 BASIC METABOLIC PANEL,BMP [CHEM] AM CBC WITH AUTO DIFF [HEME] AM 11/06/19 07:30 PTT,PARTIAL THROMBOPLSTIN TIME [COAG] Q12H 11/06/19 19:30 PTT,PARTIAL THROMBOPLSTIN TIME [COAG] Q12H - Plan Plan:: 79 yo female admitted for left leg DVT. We will continue heparin drip. Sodium 129 today, will continue to monitor ins/outs. Tramadol for pain prn.
[2019-11-05] MEDS: Heparin Sod,Pork In 0.45% Nacl 25,000 UNIT/500 ML IV.SOLN IV SCH (20:07)
[2019-11-05] MEDS: Pravastatin 40 MG Tab PO SCH (20:25)
[2019-11-06] MEDS: oxyCODONE 5 MG Tab PO PRN ×2 (05:18→21:52)
[2019-11-06] MEDS: Levothyroxine 88 MCG Tab PO SCH (06:59)
[2019-11-06] MEDS: Omeprazole 20 MG Cap.CR PO SCH (06:59)
[2019-11-06 08:05] LABS: CARBON DIOXIDE,CO2 23.1 mmol/L (21.0-32.0); POTASSIUM,K 4.3 mmol/L (3.5-5.1)
[2019-11-06] MEDS ORDERED: Heparin Sodium 5,000 Units/ML Vial IVPUSH ONE ×2 (08:10→21:22)
[2019-11-06] MEDS: Calcium Carbonate/Vitamin D3 1500 MG-400 Units Tab PO SCH (08:29)
[2019-11-06] MEDS: Multivitamin Tab PO SCH (08:30)
[2019-11-06] MEDS: Ascorbic Acid 500 MG Tab PO SCH (08:30)
[2019-11-06] MEDS: Fish Oil/Omega-3 Fatty Acids 1 Gm Cap PO SCH (08:30)
[2019-11-06] MEDS: Beta-Carotene (Vitamin A) w/Vitamin C & E plus Minerals Tab PO SCH (08:30)
[2019-11-06] MEDS: Cholecalciferol (Vitamin D3) 25 MCG Tab PO SCH (08:43)
--- NOTE | 2019-11-06 10:18 | PCM.PN ---
- General Info Date of Service: 11/06/19 - Review of Systems Systems Review Comment:: small improvement in swelling of left leg - Patient Data Vitals - Most Recent: Last Vital Signs Temp 36.1 C 11/06/19 08:00 Pulse 78 11/06/19 08:00 Resp 16 11/06/19 08:00 BP 103/49 L 11/06/19 09:40 Pulse Ox 97 11/06/19 08:00 Weight - Most Recent: 63.276 kg I&O - Last 24 Hours: Intake & Output 11/05/19 11/06/19 11/06/19 22:59 06:59 14:59 Intake Total 1732 1040 Output Total 1200 1550 Balance 532 -510 Lab Results Last 24 Hours: Laboratory Results - last 24 hr 11/05/19 11/05/19 11/05/19 Range/Units 07:45 07:45 19:45 WBC 6.35 (4.0-11.0) K/uL RBC 2.40 L (4.30-5.90) M/uL Hgb 9.3 L (12.0-16.0) g/dL Hct 27.3 L (36.0-46.0) % MCV 113.8 H (80.0-98.0) fL MCH 38.8 H (27.0-32.0) pg MCHC 34.1 (31.0-37.0) g/dL RDW Std Deviation 60.4 (28.0-62.0) fl RDW Coeff of Kristofer 15 (11.0-15.0) % Plt Count 338 (150-400) K/uL MPV 12.80 H (7.40-12.00) fL Neut % (Auto) 56.1 (48.0-80.0) % Lymph % (Auto) 26.0 (16.0-40.0) % [place] % (Auto) 13.9 (0.0-15.0) % Eos % (Auto) 3.1 (0.0-7.0) % Baso % (Auto) 0.9 (0.0-1.5) % Neut # (Auto) 3.6 (1.4-5.7) K/uL Lymph # (Auto) 1.7 (0.6-2.4) K/uL [place] # (Auto) 0.9 H (0.0-0.8) K/uL Eos # (Auto) 0.2 (0.0-0.7) K/uL Baso # (Auto) 0.1 (0.0-0.1) K/uL Nucleated RBC % 0.0 /100WBC Nucleated RBCs # 0 K/uL APTT 53.1 H (18.6-31.3) SEC Sodium 129 L (136-145) mmol/L Potassium 4.5 (3.5-5.1) mmol/L Chloride 97 L (98-107) mmol/L Carbon Dioxide 24.1 (21.0-32.0) mmol/L BUN 17 (7.0-18.0) mg/dL Creatinine 1.1 H (0.6-1.0) mg/dL Est Cr Clr Drug Dosing 34.30 mL/min Estimated GFR (MDRD) 47.9 ml/min Glucose 100 (74-106) mg/dL Calcium 8.8 (8.5-10.1) mg/dL 11/06/19 11/06/19 11/06/19 Range/Units 07:40 07:40 07:40 WBC 7.16 (4.0-11.0) K/uL RBC 2.33 L (4.30-5.90) M/uL Hgb 9.1 L (12.0-16.0) g/dL Hct 26.6 L (36.0-46.0) % MCV 114.2 H (80.0-98.0) fL MCH 39.1 H (27.0-32.0) pg MCHC 34.2 (31.0-37.0) g/dL RDW Std Deviation 60.6 (28.0-62.0) fl RDW Coeff of Kristofer 15 (11.0-15.0) % Plt Count 372 (150-400) K/uL MPV 12.40 H (7.40-12.00) fL Neut % (Auto) 48.9 (48.0-80.0) % Lymph % (Auto) 27.7 (16.0-40.0) % [place] % (Auto) 18.6 H (0.0-15.0) % Eos % (Auto) 3.8 (0.0-7.0) % Baso % (Auto) 1.0 (0.0-1.5) % Neut # (Auto) 3.5 (1.4-5.7) K/uL Lymph # (Auto) 2.0 (0.6-2.4) K/uL [place] # (Auto) 1.3 H (0.0-0.8) K/uL Eos # (Auto) 0.3 (0.0-0.7) K/uL Baso # (Auto) 0.1 (0.0-0.1) K/uL Nucleated RBC % 0.0 /100WBC Nucleated RBCs # 0 K/uL APTT 44.7 H (18.6-31.3) SEC Sodium 133 L (136-145) mmol/L Potassium 4.3 (3.5-5.1) mmol/L Chloride 101 (98-107) mmol/L Carbon Dioxide 23.1 (21.0-32.0) mmol/L BUN 17 (7.0-18.0) mg/dL Creatinine 1.1 H (0.6-1.0) mg/dL Est Cr Clr Drug Dosing 34.30 mL/min Estimated GFR (MDRD) 47.9 ml/min Glucose 101 (74-106) mg/dL Calcium 8.6 (8.5-10.1) mg/dL Med Orders - Current: Current Medications Acetaminophen (Tylenol Extra Strength) 1,000 mg PO Q6H PRN PRN Reason: PAIN Last Admin: 11/04/19 13:54 Dose: 1,000 mg Documented by: Ascorbic Acid (Vitamin C) 500 mg PO DAILY [facility] Last Admin: 11/06/19 08:30 Dose: 500 mg Documented by: Calcium Carbonate (Caltrate 600+D 1500 Mg-400 Units) 1 tab PO DAILY [facility] Last Admin: 11/06/19 08:29 Dose: 1 tab Documented by: Cholecalciferol (Vitamin D3) 25 mcg PO DAILY [facility] Last Admin: 11/06/19 08:43 Dose: 25 mcg Documented by: Fish Oil (Fish Oil) 1 gm PO DAILY [facility] Last Admin: 11/06/19 08:30 Dose: 1 gm Documented by: Fluticasone Propionate (Flonase) 2 gm NASBOTH DAILY PRN PRN Reason: Allergies Heparin Sodium/Sodium Chloride (Heparin-1/2ns 25,000 Units/500) 25,000 unit in 500 mls @ 22.045 mls/hr IV TITRATE JOAN; Protocol Last Titration: 11/06/19 08:38 Dose: 17 units/kg/hr, 20.82 mls/hr Documented by: Vancomycin HCl 1 gm/ Sodium (Chloride) 250 mls @ 166 mls/hr IV Q24H [facility] Last Admin: 11/05/19 17:06 Dose: 166 mls/hr Documented by: Ibuprofen (Motrin) 800 mg PO BEDTIME PRN PRN Reason: Pain Levothyroxine Sodium (Synthroid) 88 mcg PO DAILY@0700 [facility] Last Admin: 11/06/19 06:59 Dose: 88 mcg Documented by: Multivitamins/Minerals (Prosight) 1 tab PO DAILY [facility] Last Admin: 11/06/19 08:30 Dose: 1 tab Documented by: Multivitamins/Minerals/Vitamin C (Tab-A-Han) 1 tab PO DAILY [facility] Last Admin: 11/06/19 08:30 Dose: 1 tab Documented by: Omeprazole (Omeprazole) 40 mg PO ACBREAKFAST [facility] Last Admin: 11/06/19 06:59 Dose: 40 mg Documented by: Oxycodone HCl (Oxycodone) 5 mg PO Q4H PRN PRN Reason: Pain Last Admin: 11/06/19 05:18 Dose: 5 mg Documented by: Pravastatin Sodium (Pravachol) 40 mg PO BEDTIME [facility] Last Admin: 11/05/19 20:25 Dose: 40 mg Documented by: Prednisone (Prednisone) 5 mg PO SUTUTHSA [facility] Last Admin: 11/05/19 11:00 Dose: 5 mg Documented by: Ramipril (Altace) 10 mg PO DAILY [facility] Last Admin: 11/06/19 09:40 Dose: Not Given Documented by: Tramadol HCl (Ultram) 50 mg PO Q6H PRN PRN Reason: Pain Last Admin: 11/04/19 18:02 Dose: 50 mg Documented by: Vancomycin HCl (Pharmacy To Dose - Vancomycin) 1 dose .XX ASDIRECTED [facility] Discontinued Medications Heparin Sodium (Porcine) (Heparin Sodium) 5,000 units IVPUSH ONETIME ONE Stop: 11/03/19 13:23 Last Admin: 11/03/19 14:05 Dose: 5,000 units Documented by: Heparin Sodium (Porcine) (Heparin Sodium) 1,230 units IVPUSH .BOLUS ONE Stop: 11/06/19 08:11 Last Admin: 11/06/19 08:35 Dose: 1,230 units Documented by: Vancomycin HCl 1 gm/ Sodium (Chloride) 250 mls @ 166 mls/hr IV ONETIME ONE Stop: 11/03/19 14:55 Last Admin: 11/03/19 14:02 Dose: 166 mls/hr Documented by: Vancomycin HCl 1 gm/ Sodium (Chloride) 250 mls @ 166 mls/hr IV Q24H [facility] Last Admin: 11/04/19 17:13 Dose: Not Given Documented by: - Exam General: Alert, Oriented Neck: Supple Lungs: Clear to Auscultation, Normal Respiratory Effort Cardiovascular: Regular Rate, Regular Rhythm Extremities: Other (left leg +3 edema, minimal change from exam yesterday) Neurological: No New Focal Deficit Sepsis Event Note - Evaluation Sepsis Screening Result: No Definite Risk - Focused Exam Vital Signs: Vital Signs Temp Pulse Resp BP BP Pulse Ox 11/06/19 09:40 103/49 L 11/06/19 08:00 36.1 C 78 16 103/49 L 97 11/06/19 04:00 36.8 C 74 18 110/55 L 97 11/06/19 00:00 36.6 C 75 18 115/58 L 98 - Problem List Review Problem List Initiated/Reviewed/Updated: Yes - My Orders Last 24 Hours: My Active Orders 11/05/19 10:42 predniSONE 5 mg PO SUTUTHSA 11/06/19 19:30 PTT,PARTIAL THROMBOPLSTIN TIME [COAG] Q12H - Plan Plan:: 79 yo female admitted for left leg DVT. We will continue heparin drip. Sodium 133 today, will continue to monitor ins/outs. Tramadol for pain prn. Anticipate discharge home tomorrow.
[2019-11-06] MEDS: Acetaminophen 500 MG Tab PO PRN (18:06)
[2019-11-06] MEDS: Pravastatin 40 MG Tab PO SCH (21:46)
[2019-11-06] MEDS: Heparin Sod,Pork In 0.45% Nacl 25,000 UNIT/500 ML IV.SOLN IV SCH (23:50)
[2019-11-07] MEDS: Levothyroxine 88 MCG Tab PO SCH (07:49)
[2019-11-07] MEDS: Omeprazole 20 MG Cap.CR PO SCH (07:49)
[2019-11-07] MEDS: Ascorbic Acid 500 MG Tab PO SCH (09:23)
[2019-11-07] MEDS: Fish Oil/Omega-3 Fatty Acids 1 Gm Cap PO SCH (09:24)
[2019-11-07] MEDS: Beta-Carotene (Vitamin A) w/Vitamin C & E plus Minerals Tab PO SCH (09:24)
[2019-11-07] MEDS: Cholecalciferol (Vitamin D3) 25 MCG Tab PO SCH (09:24)
[2019-11-07] MEDS: Multivitamin Tab PO SCH (09:24)
[2019-11-07] MEDS: Calcium Carbonate/Vitamin D3 1500 MG-400 Units Tab PO SCH (09:25)
[2019-11-07] MEDS ORDERED: Apixaban 5 MG Tab PO ONE (09:58)
[2019-11-07] MEDS: predniSONE 10 MG Tab PO SCH (10:22)
--- NOTE | 2019-11-07 11:29 | PCM.DCSUM1 ---
Discharge Summary - Hospital Course Brief History: 79 yo female with pmh of sarcoma who presented to the ED with one day history left leg swelling and edema. In the ED she was discovered to have a DVT on ultrasound. PAtient was started on heparin drip and given vancomycin due to concerns of left leg cellulitis. Diagnosis: Stroke: No - Discharge Data Discharge Date: 11/07/19 Discharge Disposition: Home, Self-Care 01 Condition: Stable - Referral to Home Health Primary Care Physician: Toñito Pichardo MD - Discharge Diagnosis/Problem(s) (1) DVT (deep venous thrombosis) SNOMED Code(s): 409067240 ICD Code: I82.409 - ACUTE EMBOLISM AND THOMBOS UNSP DEEP VN UNSP LOWER EXTREMITY Status: Acute Current Visit: Yes Qualifiers: DVT location: lower extremity Affected thrombotic vein of extremity: femoral Chronicity: acute Laterality: left Qualified Code(s): I82.412 - Acute embolism and thrombosis of left femoral vein - Patient Summary/Data Hospital Course: Admitting Diagnoses: RLE DVT Discharge Diagnoses: RLE DVT Other PMH: HTN HLD Hx DVT GERD Liposarcoma Yasmine was admitted for RLE DVT. She was placed on heparin gtt and treated with Vancomycin for possible cellulitis. She steadily improved. Pain controlled with Tylenol. Today she is feeling ready to go home. We will discharge her on 3 more days on Eliquis 10 mg BID and then change to 5 mg BID from then on. RLE is noted to have mild erythema, but improved as well as swelling is mildly improved as well. She denies chest pain pain. She has follow up with PCP and [facility]. She is to monitor for signs of bleeding. She is to keep L leg elevated as much as possible. Denies need for pain mediations currently, stating she has some Tramadol at home she has used previously. She is to return to the ED or clinic if concerns should arise. - Patient Instructions Diet: Regular Diet as Tolerated Activity: Elevate Extremity, No Strenuous Activities, Rest and Relax Today Driving: Do Not Drive Showering/Bathing: May Shower Notify Provider of: Fever, Increased Pain, Swelling and Redness, Drainage, Nausea and/or Vomiting Other/Special Instructions: Monitor for bleeding. elevate extremity as much as possible to limit swelling. - Discharge Plan *PRESCRIPTION DRUG MONITORING PROGRAM REVIEWED*: Not Applicable *COPY OF PRESCRIPTION DRUG MONITORING REPORT IN PATIENT ELI: Not Applicable Prescriptions/Med Rec: Apixaban [Eliquis] 5 - 10 mg PO BID #40 tablet Home Medications: Home Meds Acetaminophen [Tylenol Extra Strength] 1,000 mg PO Q4H 01/21/14 [History] Calcium Carb, Cit/Magnesium Ox [Calmag Thins Tablet] 1 tab PO DAILY 01/21/14 [History] Furosemide [Lasix] 20 mg PO ASDIRECTED 01/21/14 [History] Lutein/Zeaxanthin [Lutein-Zeaxanthin 25-5 mg Sfgl] 1 cap PO DAILY 01/21/14 [History] Multivitamin [Multivitamins] 1 cap PO DAILY 01/21/14 [History] [place]-3 Fatty Acids/Fish Oil [Fish Oil 1,200 mg Softgel] 1,200 mg PO DAILY 01/21/14 [History] Ubidecarenone [Co Q-10] 100 mg PO DAILY 01/21/14 [History] Vitamin B Complex [Super B-50 Complex] 1 cap PO DAILY 01/21/14 [History] predniSONE 5 mg PO SUTUTHSA 01/21/14 [History] ramipriL [Altace] 10 mg PO DAILY 01/21/14 [History] traMADol [Ultram] 50 mg PO Q6H 01/21/14 [History] Cholecalciferol (Vitamin D3) [Vitamin D3] 2,000 mg PO DAILY 02/27/18 [History] Glucosam/Chond/Hyalu/Cf Borate [Move Free Joint Health Tablet] 1 tab PO DAILY 02/27/18 [History] Vitamin E (Dl,Tocopheryl Acet) [Vitamin E] 200 unit PO DAILY 02/27/18 [History] Ascorbic Acid [Vitamin C] 1 tab PO DAILY 09/02/18 [History] Non-Formulary Medication [NF Drug] 50 mg PO 09/02/18 [History] Fluticasone Propionate 2 sprays NASBOTH DAILY PRN 11/04/19 [History] Levothyroxine [Synthroid] 88 mcg PO DAILY 11/04/19 [History] Omeprazole 40 mg PO DAILY 11/04/19 [History] Pravastatin Sodium [Pravachol] 40 mg PO BEDTIME 11/04/19 [History] Apixaban [Eliquis] 5 - 10 mg PO BID #40 tablet 11/07/19 [Rx] Oxygen Therapy Mode: Room Air Patient Handouts: How to Use Compression Stockings, Apixaban oral tablets, Deep Vein Thrombosis, Venous Thromboembolism Prevention Referrals: Salomón Whitt MD [Ordering Only Provider] - 11/11/19 (Please log on to your patient portal to see all appointment times.) Merle Dubois NP [Nurse Practitioner] - 11/12/19 1:30 pm (Due to his schedule, an appointment could not be made with Dr. Pichardo.) Toñito Pichardo MD [Primary Care Provider] - - Discharge Summary/Plan Comment DC Time >30 min.: No - Patient Data Vitals - Most Recent: Last Vital Signs Temp 98 F 11/07/19 07:30 Pulse 77 11/07/19 07:30 Resp 17 11/07/19 07:30 BP 110/43 L 11/07/19 10:10 Pulse Ox 96 11/07/19 07:30 Weight - Most Recent: 63.276 kg I&O - Last 24 hours: Intake & Output 11/06/19 11/07/19 11/07/19 22:59 06:59 14:59 Intake Total 1610 608 Output Total 1400 1950 Balance 210 -1342 Lab Results - Last 24 hrs: Laboratory Results - last 24 hr 11/06/19 11/06/19 11/07/19 Range/Units 12:40 19:40 04:02 APTT 78.5 H 48.4 H 70.8 H (18.6-31.3) SEC Med Orders - Current: Current Medications Acetaminophen (Tylenol Extra Strength) 1,000 mg PO Q6H PRN PRN Reason: PAIN Last Admin: 11/06/19 18:06 Dose: 1,000 mg Documented by: Ascorbic Acid (Vitamin C) 500 mg PO DAILY [facility] Last Admin: 11/07/19 09:23 Dose: 500 mg Documented by: Calcium Carbonate (Caltrate 600+D 1500 Mg-400 Units) 1 tab PO DAILY [facility] Last Admin: 11/07/19 09:25 Dose: 1 tab Documented by: Cholecalciferol (Vitamin D3) 25 mcg PO DAILY [facility] Last Admin: 11/07/19 09:24 Dose: 25 mcg Documented by: Fish Oil (Fish Oil) 1 gm PO DAILY [facility] Last Admin: 11/07/19 09:24 Dose: 1 gm Documented by: Fluticasone Propionate (Flonase) 2 gm NASBOTH DAILY PRN PRN Reason: Allergies Vancomycin HCl 1 gm/ Sodium (Chloride) 250 mls @ 166 mls/hr IV Q24H [facility] Last Admin: 11/06/19 17:49 Dose: 166 mls/hr Documented by: Ibuprofen (Motrin) 800 mg PO BEDTIME PRN PRN Reason: Pain Levothyroxine Sodium (Synthroid) 88 mcg PO DAILY@0700 [facility] Last Admin: 11/07/19 07:49 Dose: 88 mcg Documented by: Multivitamins/Minerals (Prosight) 1 tab PO DAILY [facility] Last Admin: 11/07/19 09:24 Dose: 1 tab Documented by: Multivitamins/Minerals/Vitamin C (Tab-A-Han) 1 tab PO DAILY [facility] Last Admin: 11/07/19 09:24 Dose: 1 tab Documented by: Omeprazole (Omeprazole) 40 mg PO ACBREAKFAST [facility] Last Admin: 11/07/19 07:49 Dose: 40 mg Documented by: Oxycodone HCl (Oxycodone) 5 mg PO Q4H PRN PRN Reason: Pain Last Admin: 11/06/19 21:52 Dose: 5 mg Documented by: Pravastatin Sodium (Pravachol) 40 mg PO BEDTIME [facility] Last Admin: 11/06/19 21:46 Dose: 40 mg Documented by: Prednisone (Prednisone) 5 mg PO SUTUTHSA [facility] Last Admin: 11/07/19 10:22 Dose: 5 mg Documented by: Ramipril (Altace) 10 mg PO DAILY [facility] Last Admin: 11/07/19 10:10 Dose: Not Given Documented by: Tramadol HCl (Ultram) 50 mg PO Q6H PRN PRN Reason: Pain Last Admin: 11/04/19 18:02 Dose: 50 mg Documented by: Vancomycin HCl (Pharmacy To Dose - Vancomycin) 1 dose .XX ASDIRECTED [facility] Discontinued Medications Apixaban (Eliquis) 10 mg PO ONETIME ONE Stop: 11/07/19 09:59 Last Admin: 11/07/19 10:22 Dose: 10 mg Documented by: Heparin Sodium (Porcine) (Heparin Sodium) 5,000 units IVPUSH ONETIME ONE Stop: 11/03/19 13:23 Last Admin: 11/03/19 14:05 Dose: 5,000 units Documented by: Heparin Sodium (Porcine) (Heparin Sodium) 1,230 units IVPUSH .BOLUS ONE Stop: 11/06/19 08:11 Last Admin: 11/06/19 08:35 Dose: 1,230 units Documented by: Heparin Sodium (Porcine) (Heparin Sodium) 1,224 units IVPUSH .BOLUS ONE Stop: 11/06/19 21:23 Last Admin: 11/06/19 21:43 Dose: 1,224 units Documented by: Heparin Sodium/Sodium Chloride (Heparin-1/2ns 25,000 Units/500) 25,000 unit in 500 mls @ 22.045 mls/hr IV TITRATE JOAN; Protocol Last Titration: 11/07/19 04:59 Dose: 15 units/kg/hr, 18.371 mls/hr Documented by: Vancomycin HCl 1 gm/ Sodium (Chloride) 250 mls @ 166 mls/hr IV ONETIME ONE Stop: 11/03/19 14:55 Last Admin: 11/03/19 14:02 Dose: 166 mls/hr Documented by: Vancomycin HCl 1 gm/ Sodium (Chloride) 250 mls @ 166 mls/hr IV Q24H [facility] Last Admin: 11/04/19 17:13 Dose: Not Given Documented by:
[2019-11-07] MEDS: Acetaminophen 500 MG Tab PO PRN (13:45)
== END 2019-11-07 17:40 | disposition still patient (30) | DRG 300 ==
LOC: MW.ED 11:02 → MW.MS 15:38
PROVIDERS: ADMIT Internal Medicine; ATTEND Internal Medicine
DX: I82.412 Acute embolism and thrombosis of left femoral vein (principal); L03.116 Cellulitis of left lower limb; H91.90 Unspecified hearing loss, unspecified ear; H54.7 Unspecified visual loss; E87.1 Hypo-osmolality and hyponatremia; E78.00 Pure hypercholesterolemia, unspecified; I10 Essential (primary) hypertension; J45.909 Unspecified asthma, uncomplicated; Z87.440 Personal history of urinary (tract) infections; Z90.5 Acquired absence of kidney; K21.9 Gastro-esophageal reflux disease without esophagitis; M19.90 Unspecified osteoarthritis, unspecified site; Z85.831 Personal history of malignant neoplasm of soft tissue; Z90.49 Acquired absence of other specified parts of digestive tract; Z90.81 Acquired absence of spleen; Z98.890 Other specified postprocedural states; Z20.828 Contact with and (suspected) exposure to other viral communicable diseases; E03.9 Hypothyroidism, unspecified; Z88.1 Allergy status to other antibiotic agents; Z88.0 Allergy status to penicillin; Z91.048 Other nonmedicinal substance allergy status; Z91.09 Other allergy status, other than to drugs and biological substances; Z88.8 Allergy status to other drugs, medicaments and biological substances; Z79.52 Long term (current) use of systemic steroids; Z79.890 Hormone replacement therapy; Z79.899 Other long term (current) drug therapy; Z87.891 Personal history of nicotine dependence
CPT/HCPCS: 36415; 80053; 81003; 85025; 85610; 85730; 93005; 93971; 99284; J1644 ×2; J3370; J7050; U0002; 74176; 74176-26; 80048; A9270-GY

== ENCOUNTER 2020-11-05 10:17 | Observation (INO) | payer MEDICARE, OTHER ==
[2020-11-05] MEDS ORDERED: Sodium Chloride 0.9% 2.5 ML Syringe FLUSH PRN (10:30)
[2020-11-05] MEDS ORDERED: Sodium Chloride 0.9% 10 ML Syringe FLUSH PRN (10:30)
[2020-11-05 11:10] LABS: BLOOD UREA NITROGEN,BUN 30 mg/dL (7.0-18.0); CARBON DIOXIDE,CO2 25.3 mmol/L (21.0-32.0); CHLORIDE,CL 97 mmol/L (98-107); GLUCOSE RANDOM 117 mg/dL (74-106); POTASSIUM,K 4.2 mmol/L (3.5-5.1); SODIUM,NA 132 mmol/L (136-145)
--- NOTE | 2020-11-05 11:12 | CR ---
Indication: Possible stroke Comparison: Single view chest September 02, 2018 Technique: Single AP view chest Findings: There is hyperinflation and chronic interstitial change. There is basilar atelectasis versus scar. There is no pneumothorax. The cardiac silhouette is mildly prominent with a tortuous thoracic aorta. The bony thorax is grossly intact. Impression: Hyperinflation and chronic interstitial changes with basilar atelectasis versus scar. No dense consolidation. Dictated by Ranulfo Rivas MD @ 11/05/2020 11:11:41 AM (Electronically Signed)
--- NOTE | 2020-11-05 11:29 | CT ---
Indication: Slurred speech Technique: Volumetric multidetector CT images of the head were obtained without the administration of low osmolar intravenous contrast. Comparison: None available Findings: There is no intra-axial or extra-axial fluid collection. There is no mass effect or midline shift. There is age-related cortical atrophy with mild sulcal widening and ex vacuo dilatation of the lateral ventricles. There are chronic small vessel disease changes in the subcortical and periventricular white matter without lost chandra-white differentiation. The orbits and their contents are grossly within normal limits. 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 Otherwise, the bony calvarium is grossly intact. The paranasal sinuses are clear. The mastoid air cells are well aerated. Impression: 1. Age-related changes of the brain without acute intracranial abnormality. Findings were faxed to and confirmed received by Dr. Jose at 11:28 a.m. November 05, [address] Please note that all CT scans at this facility use dose modulation, iterative reconstruction, and/or weight-based dosing when appropriate to reduce radiation dose to as low as reasonably achievable. Dictated by Ranulfo Rivas MD @ 11/05/2020 11:29:08 AM (Electronically Signed)
[2020-11-05] MEDS ORDERED: Lactated Ringers 1,000 ML IV SCH ×2 (11:30→20:45)
--- NOTE | 2020-11-05 11:33 | CT ---
DATE: 11/05/2020 CLINICAL HISTORY: Patient with slurred speech. TECHNIQUE: Standard helical CT image acquisition through the head and neck was performed after intravenous contrast bolus enhancement. Multiplanar reconstructed images were performed and interpreted. COMPARISON: CT same day FINDINGS: The origins of the great vessels from the aortic arch are patent. The origin of the right vertebral artery is patent. The origin of the left vertebral artery is patent. The common carotid arteries are patent There is no stenosis at the origin of the right internal carotid artery. There is no stenosis at the origin of the left internal carotid artery. The rest of the cervical segments of the internal carotid arteries are patent up to their intracranial segments. The intracranial segments of the internal carotid arteries are patent. The left vertebral artery is dominant. The cervical segments of the vertebral arteries are patent. The intracranial segments of the vertebral arteries are patent. The middle cerebral arteries are normal without aneurysm or proximal occlusion identified. The anterior cerebral arteries are normal without aneurysm or proximal occlusion identified. The anterior communicating artery is well visualized and appears normal. The basilar artery is normal without aneurysm or occlusion. The posterior cerebral arteries are normal without aneurysm or proximal occlusion. There is normal opacification of major intracranial venous structures. The visualized lung apices are unremarkable The thyroid gland is unremarkable. The soft tissues of the neck are unremarkable. There are degenerative changes in the cervical spine. IMPRESSION: Normal CT angiogram of the head and neck. Please note that all CT scans at this facility use dose modulation, iterative reconstruction, and/or weight-based dosing when appropriate to reduce radiation dose to as low as reasonably achievable. Dictated by Marta Kebede MD @ 11/05/2020 12:38:51 PM (Electronically Signed)
[2020-11-05] MEDS ORDERED: Iopamidol 755 MG/ML 500 ML Multipack Bottle IVPUSH STA (13:19)
[2020-11-05] MEDS ORDERED: Warfarin 5 MG Tab PO SCH (14:00)
[2020-11-05] MEDS ORDERED: Acetaminophen 325 MG Tab PO PRN (14:28)
[2020-11-05] MEDS ORDERED: Ondansetron 4 MG/2 ML SDV IVPUSH PRN (14:28)
[2020-11-05] MEDS ORDERED: Albuterol/Ipratropium 3.0-0.5 MG/3 ML Neb Soln NEB PRN (14:28)
--- NOTE | 2020-11-05 14:43 | PCM.HP.2 ---
H&P History of Present Illness - General Date of Service: 11/05/20 Admit Problem/Dx: Admission Diagnosis/Problem Admission Diagnosis/Problem TIA, Transient ischemic attack - Related Data Allergies/Adverse Reactions: Allergies Allergy/AdvReac Type Severity Reaction Status Date / Time adhesive Allergy Burning Verified 11/05/20 10:38 cephalexin [Cephalexin] Allergy Hives Verified 11/05/20 10:38 erythromycin lactobionate Allergy Agitation Verified 11/05/20 10:38 [From Erythrocin] iodine Allergy Difficulty Verified 11/05/20 10:38 Breathing Penicillins Allergy Hives Verified 11/05/20 10:38 pregabalin [From Lyrica] Allergy Other Verified 11/05/20 10:38 simvastatin Allergy Muscle Verified 11/05/20 10:38 Aches Home Medications: Home Meds Acetaminophen [Tylenol Extra Strength] 1,000 mg PO Q4H 01/21/14 [History] Calcium Carb, Cit/Magnesium Ox [Calmag Thins Tablet] 1 tab PO DAILY 01/21/14 [History] Furosemide [Lasix] 20 mg PO ASDIRECTED 01/21/14 [History] Lutein/Zeaxanthin [Lutein-Zeaxanthin 25-5 mg Sfgl] 1 cap PO DAILY 01/21/14 [History] Multivitamin [Multivitamins] 1 cap PO DAILY 01/21/14 [History] [place]-3 Fatty Acids/Fish Oil [Fish Oil 1,200 mg Softgel] 1,200 mg PO DAILY 01/21/14 [History] Ubidecarenone [Co Q-10] 100 mg PO DAILY 01/21/14 [History] Vitamin B Complex [Super B-50 Complex] 1 cap PO DAILY 01/21/14 [History] predniSONE 5 mg PO SUTUTHSA 01/21/14 [History] ramipriL [Altace] 10 mg PO DAILY 01/21/14 [History] traMADol [Ultram] 50 mg PO Q6H 01/21/14 [History] Cholecalciferol (Vitamin D3) [Vitamin D3] 2,000 mg PO DAILY 02/27/18 [History] Glucosam/Chond/Hyalu/Cf Borate [Move Free Joint Health Tablet] 1 tab PO DAILY 02/27/18 [History] Vitamin E (Dl,Tocopheryl Acet) [Vitamin E] 200 unit PO DAILY 02/27/18 [History] Ascorbic Acid [Vitamin C] 1 tab PO DAILY 09/02/18 [History] Non-Formulary Medication [NF Drug] 50 mg PO 09/02/18 [History] Fluticasone Propionate 2 sprays NASBOTH DAILY PRN 11/04/19 [History] Levothyroxine [Synthroid] 88 mcg PO DAILY 11/04/19 [History] Omeprazole 40 mg PO DAILY 11/04/19 [History] Pravastatin Sodium [Pravachol] 40 mg PO BEDTIME 11/04/19 [History] Apixaban [Eliquis] 5 - 10 mg PO BID #40 tablet 11/07/19 [Rx] Past Medical History HEENT History: Reports: Hard of Hearing, Macular Degeneration, Other (See Below) Other HEENT History: wears glasses, has upper permanent partial denture Cardiovascular History: Reports: Arrhythmia, High Cholesterol, Hypertension, Other (See Below) Other Cardiovascular History: states 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- took aspirin Respiratory History: Reports: Asthma Gastrointestinal History: Reports: GERD Genitourinary History: Reports: UTI, Recurrent Other Genitourinary History: left kidney removed 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 OB/BYN History: 4 c sections and 1 secondary enclosure Musculoskeletal History: Reports: Arthritis, Fracture Other Musculoskeletal History: hx of fx left hand Neurological History: Reports: None Psychiatric History: Reports: None Endocrine/Metabolic History: Reports: Hypothyroidism Hematologic History: Reports: Blood Transfusion(s) Immunologic History: Reports: None Oncologic (Cancer) History: Reports: Other (See Below) Other Oncologic History: liposarcoma cancer Dermatologic History: Reports: None - Infectious Disease History Infectious Disease History: Reports: Chicken Pox, Measles, Mumps - Past Surgical History Head Surgeries/Procedures: Reports: None HEENT Surgical History: Reports: Tonsillectomy Cardiovascular Surgical History: Reports: Cardiac Ablation, Other (See Below) Other Cardiovascular Surgeries/Procedures: states 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 spleen removed Female Surgical History: Reports: Section Other Female Surgeries/Procedures: x4 Endocrine Surgical History: Reports: Other (See Below) Other Endocrine Surgeries/Procedures: Thyroid problems Musculoskeletal Surgical History: Reports: Other (See Below) Other Musculoskeletal Surgeries/Procedures:: R knee scope Social & Family History - Family History Family Medical History: No Pertinent Family History - Tobacco Use Tobacco Use Status *Q: Never Tobacco User Second Hand Smoke Exposure: No - Caffeine Use Caffeine Use: Reports: None Caffeine Use Comment: 2 cups/day - Recreational Drug Use Recreational Drug Use: No - Living Situation & Occupation Living situation: Reports: , with Spouse Occupation: Retired Exam - Vital Signs Vital Signs: Last Vital Signs Temp 36.8 C 11/05/20 14:14 Pulse 78 11/05/20 14:14 Resp 20 11/05/20 14:14 BP 114/50 L 11/05/20 14:14 Pulse Ox 97 11/05/20 14:14 Weight: 57.153 kg - Patient Data Lab Results Last 24 hrs: Laboratory Results - last 24 hr 11/05/20 11/05/20 11/05/20 Range/Units 10:31 10:31 10:31 WBC 4.55 (4.0-11.0) K/uL RBC 2.60 L (4.30-5.90) M/uL Hgb 10.5 L (12.0-16.0) g/dL Hct 29.9 L (36.0-46.0) % MCV 115.0 H (80.0-98.0) fL MCH 40.4 H (27.0-32.0) pg MCHC 35.1 (31.0-37.0) g/dL RDW Std Deviation 63.8 H (28.0-62.0) fl RDW Coeff of Kristofer 16 H (11.0-15.0) % Plt Count 497 H (150-400) K/uL MPV 12.00 (7.40-12.00) fL Neut % (Auto) 51.8 (48.0-80.0) % Lymph % (Auto) 28.4 (16.0-40.0) % [place] % (Auto) 14.5 (0.0-15.0) % Eos % (Auto) 4.2 (0.0-7.0) % Baso % (Auto) 1.1 (0.0-1.5) % Neut # (Auto) 2.4 (1.4-5.7) K/uL Lymph # (Auto) 1.3 (0.6-2.4) K/uL [place] # (Auto) 0.7 (0.0-0.8) K/uL Eos # (Auto) 0.2 (0.0-0.7) K/uL Baso # (Auto) 0.1 (0.0-0.1) K/uL Nucleated RBC % 0.0 /100WBC Nucleated RBCs # 0 K/uL INR 1.00 Sodium 132 L (136-145) mmol/L Potassium 4.2 (3.5-5.1) mmol/L Chloride 97 L (98-107) mmol/L Carbon Dioxide 25.3 (21.0-32.0) mmol/L BUN 30 H (7.0-18.0) mg/dL Creatinine 1.4 H (0.6-1.0) mg/dL Est Cr Clr Drug Dosing 26.51 mL/min Estimated GFR (MDRD) 36.2 ml/min Glucose 117 H (74-106) mg/dL Calcium 9.2 (8.5-10.1) mg/dL Magnesium 2.0 (1.8-2.4) mg/dL Iron (50-175) ug/dL TIBC (250-450) ug/dL % Saturation (20-55) % Total Bilirubin 0.5 (0.2-1.0) mg/dL AST 23 (15-37) IU/L ALT 30 (14-63) IU/L Alkaline Phosphatase 43 L (46-116) U/L Troponin I < 0.050 (0.000-0.056) ng/mL Total Protein 7.7 (6.4-8.2) g/dL Albumin 3.9 (3.4-5.0) g/dL Globulin 3.8 (2.6-4.0) g/dL Albumin/Globulin Ratio 1.0 (0.9-1.6) Vitamin B12 (193-986) pg/mL Folate (8.60-58.90) ng/mL TSH, Ultra Sensitive 0.91 (0.36-3.74) uIU/mL Urine Color Urine Appearance Urine pH (5.0-8.0) Ur Specific [place] (1.001-1.035) Urine Protein (NEGATIVE) mg/dL Urine Glucose (UA) (NEGATIVE) mg/dL Urine Ketones (NEGATIVE) mg/dL Urine Occult Blood (NEGATIVE) Urine Nitrite (NEGATIVE) Urine Bilirubin (NEGATIVE) Urine Urobilinogen (<2.0) EU/dL Ur Leukocyte Esterase (NEGATIVE) SARS-CoV-2 RNA (TESS) (NEGATIVE) 11/05/20 11/05/20 11/05/20 Range/Units 10:31 10:34 10:40 WBC (4.0-11.0) K/uL RBC (4.30-5.90) M/uL Hgb (12.0-16.0) g/dL Hct (36.0-46.0) % MCV (80.0-98.0) fL MCH (27.0-32.0) pg MCHC (31.0-37.0) g/dL RDW Std Deviation (28.0-62.0) fl RDW Coeff of [place]of[place] (11.0-15.0) % Plt Count (150-400) K/uL MPV (7.40-12.00) fL Neut % (Auto) (48.0-80.0) % Lymph % (Auto) (16.0-40.0) % [place] % (Auto) (0.0-15.0) % Eos % (Auto) (0.0-7.0) % Baso % (Auto) (0.0-1.5) % Neut # (Auto) (1.4-5.7) K/uL Lymph # (Auto) (0.6-2.4) K/uL [place] # (Auto) (0.0-0.8) K/uL Eos # (Auto) (0.0-0.7) K/uL Baso # (Auto) (0.0-0.1) K/uL Nucleated RBC % /100WBC Nucleated RBCs # K/uL INR Sodium (136-145) mmol/L Potassium (3.5-5.1) mmol/L Chloride (98-107) mmol/L Carbon Dioxide (21.0-32.0) mmol/L BUN (7.0-18.0) mg/dL Creatinine (0.6-1.0) mg/dL Est Cr Clr Drug Dosing mL/min Estimated GFR (MDRD) ml/min Glucose (74-106) mg/dL Calcium (8.5-10.1) mg/dL Magnesium (1.8-2.4) mg/dL Iron 129 (50-175) ug/dL TIBC 340 (250-450) ug/dL % Saturation 37.94 (20-55) % Total Bilirubin (0.2-1.0) mg/dL AST (15-37) IU/L ALT (14-63) IU/L Alkaline Phosphatase (46-116) U/L Troponin I (0.000-0.056) ng/mL Total Protein (6.4-8.2) g/dL Albumin (3.4-5.0) g/dL Globulin (2.6-4.0) g/dL Albumin/Globulin Ratio (0.9-1.6) Vitamin B12 942 (193-986) pg/mL Folate 74.50 H (8.60-58.90) ng/mL TSH, Ultra Sensitive (0.36-3.74) uIU/mL Urine Color Urine Appearance Urine pH (5.0-8.0) Ur Specific [place] (1.001-1.035) Urine Protein (NEGATIVE) mg/dL Urine Glucose (UA) (NEGATIVE) mg/dL Urine Ketones (NEGATIVE) mg/dL Urine Occult Blood (NEGATIVE) Urine Nitrite (NEGATIVE) Urine Bilirubin (NEGATIVE) Urine Urobilinogen (<2.0) EU/dL Ur Leukocyte Esterase (NEGATIVE) SARS-CoV-2 RNA (TESS) NEGATIVE (NEGATIVE) 11/05/20 Range/Units 11:20 WBC (4.0-11.0) K/uL RBC (4.30-5.90) M/uL Hgb (12.0-16.0) g/dL Hct (36.0-46.0) % MCV (80.0-98.0) fL MCH (27.0-32.0) pg MCHC (31.0-37.0) g/dL RDW Std Deviation (28.0-62.0) fl RDW Coeff of [place]of[place] (11.0-15.0) % Plt Count (150-400) K/uL MPV (7.40-12.00) fL Neut % (Auto) (48.0-80.0) % Lymph % (Auto) (16.0-40.0) % [place] % (Auto) (0.0-15.0) % Eos % (Auto) (0.0-7.0) % Baso % (Auto) (0.0-1.5) % Neut # (Auto) (1.4-5.7) K/uL Lymph # (Auto) (0.6-2.4) K/uL [place] # (Auto) (0.0-0.8) K/uL Eos # (Auto) (0.0-0.7) K/uL Baso # (Auto) (0.0-0.1) K/uL Nucleated RBC % /100WBC Nucleated RBCs # K/uL INR Sodium (136-145) mmol/L Potassium (3.5-5.1) mmol/L Chloride (98-107) mmol/L Carbon Dioxide (21.0-32.0) mmol/L BUN (7.0-18.0) mg/dL Creatinine (0.6-1.0) mg/dL Est Cr Clr Drug Dosing mL/min Estimated GFR (MDRD) ml/min Glucose (74-106) mg/dL Calcium (8.5-10.1) mg/dL Magnesium (1.8-2.4) mg/dL Iron (50-175) ug/dL TIBC (250-450) ug/dL % Saturation (20-55) % Total Bilirubin (0.2-1.0) mg/dL AST (15-37) IU/L ALT (14-63) IU/L Alkaline Phosphatase (46-116) U/L Troponin I (0.000-0.056) ng/mL Total Protein (6.4-8.2) g/dL Albumin (3.4-5.0) g/dL Globulin (2.6-4.0) g/dL Albumin/Globulin Ratio (0.9-1.6) Vitamin B12 (193-986) pg/mL Folate (8.60-58.90) ng/mL TSH, Ultra Sensitive (0.36-3.74) uIU/mL Urine Color YELLOW Urine Appearance CLEAR Urine pH 7.0 (5.0-8.0) Ur Specific [place] 1.010 (1.001-1.035) Urine Protein NEGATIVE (NEGATIVE) mg/dL Urine Glucose (UA) NEGATIVE (NEGATIVE) mg/dL Urine Ketones NEGATIVE (NEGATIVE) mg/dL Urine Occult Blood NEGATIVE (NEGATIVE) Urine Nitrite NEGATIVE (NEGATIVE) Urine Bilirubin NEGATIVE (NEGATIVE) Urine Urobilinogen 0.2 (<2.0) EU/dL Ur Leukocyte Esterase NEGATIVE (NEGATIVE) SARS-CoV-2 RNA (TESS) (NEGATIVE) Result Diagrams: 11/05/20 10:31 11/05/20 10:31 Sepsis Event Note - Evaluation Sepsis Screening Result: No Definite Risk - Focused Exam Vital Signs: Vital Signs Temp Pulse Resp BP Pulse Ox 11/05/20 14:14 36.8 C 78 20 114/50 L 97 11/05/20 13:33 68 18 119/52 L 97 11/05/20 12:46 36.8 C 70 18 131/51 L 97 11/05/20 12:11 63 18 127/53 L 99 11/05/20 11:27 36.7 C 73 18 130/48 L 98 11/05/20 10:34 36.9 C 80 20 128/96 H 98 Orders Last 24hrs: Active Orders 24 hr Category Date Time Status Admission Status [Patient Status] [ADT] Stat ADT 11/05/20 13:20 Active Ambulate [RC] ASDIRECTED Care 11/05/20 14:28 Active Antiembolic Devices [RC] PER UNIT ROUTINE Care 11/05/20 14:29 Active Cardiac Monitoring [RC] . DIRECTED Care 11/05/20 10:30 Active Oxygen Therapy [RC] PRN Care 11/05/20 14:28 Active Pulse Oximetry [RC] ASDIRECTED Care 11/05/20 10:30 Active RT Aerosol Therapy [RC] ASDIRECTED Care 11/05/20 14:29 Active VTE/DVT Education [RC] PER UNIT ROUTINE Care 11/05/20 14:28 Active Vital Signs [RC] Q4H Care 11/05/20 14:28 Active Heart Healthy Diet [DIET] Diet 11/05/20 Dinner Active Brain w wo Cont [MR] Routine Exams 11/05/20 14:42 Ordered Brain wo Cont [MR] Stat Exams 11/05/20 13:22 Stop Req Echo Comp wo Cont [US] Routine Exams 11/05/20 14:39 Ordered BMP [BASIC METABOLIC PANEL,BMP] [CHEM] AM Lab 11/06/20 05:11 Ordered CBC WITH AUTO DIFF [HEME] AM Lab 11/06/20 05:11 Ordered GLYCOSYLATED HEMOGLOBIN,HGBA1C [CHEM] Routine Lab 11/05/20 14:38 Ordered MAGNESIUM [CHEM] AM Lab 11/06/20 05:11 Ordered PHOSPHORUS [CHEM] AM Lab 11/06/20 05:11 Ordered Acetaminophen [TylenoL] Med 11/05/20 14:28 Ordered 650 mg PO Q4H PRN Albuterol/Ipratropium [DuoNeb 3.0-0.5 MG/3 ML] Med 11/05/20 14:28 Ordered 3 ml NEB Q4HRRT PRN Aspirin Med 11/05/20 14:45 Ordered 81 mg PO DAILY Lactated Ringers [Ringers, Lactated] 1,000 ml Med 11/05/20 11:30 Active IV ASDIRECTED Ondansetron [Zofran] Med 11/05/20 14:28 Ordered 4 mg IVPUSH Q4H PRN Pantoprazole [ProTONIX IV] Med 11/06/20 09:00 Ordered 40 mg IV DAILY Sodium Chloride 0.9% [Saline Flush] Med 11/05/20 10:30 Active 10 ml FLUSH ASDIRECTED PRN Sodium Chloride 0.9% [Saline Flush] Med 11/05/20 10:30 Active 2.5 ml FLUSH ASDIRECTED PRN Saline Lock Insert [OM.PC] Stat Oth 11/05/20 10:30 Ordered Sequential Compression Device [OM.PC] Per Unit Routine Oth 11/05/20 14:28 Ordered Medication Orders Acetaminophen (Acetaminophen 325 Mg Tab) 650 mg PO Q4H PRN PRN Reason: Pain (Mild 1-3)/fever Albuterol/Ipratropium (Albuterol/Ipratropium 3.0-0.5 Mg/3 Ml Neb Soln) 3 ml NEB Q4HRRT PRN PRN Reason: Shortness Of Breath/wheezing Aspirin (Aspirin 81 Mg Tab.Chew) 81 mg PO DAILY JOAN Lactated Ringer's (Ringers, Lactated) 1,000 mls @ 999 mls/hr IV ASDIRECTED JOAN Last Admin: 11/05/20 11:29 Dose: 999 mls/hr Documented by: LACHELLE Ondansetron HCl (Ondansetron 4 Mg/2 Ml Sdv) 4 mg IVPUSH Q4H PRN PRN Reason: Nausea/Vomiting Pantoprazole Sodium (Pantoprazole 40 Mg Vial) 40 mg IV DAILY JOAN Sodium Chloride (Sodium Chloride 0.9% 10 Ml Syringe) 10 ml FLUSH ASDIRECTED PRN PRN Reason: Keep Vein Open Last Admin: 11/05/20 11:27 Dose: 10 ml Documented by: LACHELLE Sodium Chloride (Sodium Chloride 0.9% 2.5 Ml Syringe) 2.5 ml FLUSH ASDIRECTED PRN PRN Reason: Keep Vein Open Last Admin: 11/05/20 11:27 Dose: 2.5 ml Documented by: LACHELLE
[2020-11-05] MEDS ORDERED: Aspirin 81 MG Tab.Chew PO SCH (14:45)
[2020-11-05] MEDS ORDERED: Albuterol 0.083% 2.5 MG/3 ML Neb Soln NEB STA (14:54)
--- NOTE | 2020-11-05 14:58 | PCM.EKG ---
#1 Interpretation EKG Date: 11/05/20 Time: 10:39 Rhythm: NSR Rate (Beats/Min): 71 [place]: Normal P-Wave: Present QRS: LBBB ST-T: Normal QT: Normal Comparison: No Change (11/03/19) EKG Interpretation Comments: Sinus Rhythm with LBBB
--- NOTE | 2020-11-05 15:30 | MR ---
Indication: SLURRED SPEECH, CAME IN THROUGH THE ER Technique: Noncontrast sagittal T1 weighted, axial T2 fast spin echo, FLAIR, SWI, and diffusion weighted images of the head. Comparison: CT 11/05/2020 Findings: Faint increased signal in the left paramedian lawrence on diffusion-weighted and T2 weighted images, without signal loss on ADC map likely representing a subacute-chronic ischemic infarct. A 6 mm focus of high signal on diffusion images and signal loss on ADC map in the left anterior thalamus likely represents recent ischemic infarct. No mass effect or midline shift. No hydrocephalus. Mild generalized parenchymal volume loss. No suspicious extra-axial collection or acute intracranial hemorrhage. Mild chronic small vessel white matter ischemic changes in the subcortical and periventricular matter of both cerebral hemispheres, as well as in the [place]. Impression: 1. A 6 mm focus of high signal on diffusion images and signal loss on ADC map in the left anterior thalamus likely represents recent ischemic infarct. 2. Faint increased signal in the left paramedian lawrence on diffusion-weighted and T2 weighted images, without signal loss on ADC map likely representing a subacute-chronic ischemic infarct. 3. Mild chronic small vessel white matter ischemic changes in the supratentorial white matter and brainstem. Dictated by Shay Miller MD @ 11/05/2020 3:29:52 PM (Electronically Signed)
--- NOTE | 2020-11-05 15:48 | EDM.PDOC ---
ED HPI GENERAL MEDICAL PROBLEM - General Chief Complaint: Neuro Symptoms/Deficits Stated Complaint: STROKE SYMPTOMS Time Seen by Provider: 11/05/20 10:27 - History of Present Illness INITIAL COMMENTS - FREE TEXT/NARRATIVE: CHIEF COMPLAINT(S): Slurred speech HISTORY OF PRESENT ILLNESS: This is a 80-year-old woman with a past medical history of leiomyosarcoma, hypothyroidism, DVT, GERD who comes to the emergency department with a chief complaint of slurred speech. The patient presents with family member at bedside. Per the patient approximately at 10 PM last night she started to experience slurred speech that lasted shortly and then had an additional episode after that. She states that it resolved on its own. She denied any weakness in her arms, legs, vision or any other abnormality. They state that they came to the emergency department because they were concerned about the possibility of stroke. She denies any chest pain, shortness of breath, abdominal pain, nausea or vomiting. She denies any shortness of breath, cough, runny nose or congestion. She denies any prior history of CVA or other abnormality. REVIEW OF SYSTEMS: Constitutional: Denies fever, chills. Eyes: Denies eye pain Ears, Nose, Mouth, & Throat: Denies earache Cardiovascular: Denies chest pain Respiratory: Denies shortness of breath Gastrointestinal: Denies Nausea, vomiting, diarrhea, hematochezia. Genitourinary: Denies hematuria Skin:Denies a rash MSK: Denies joint pain Neurological: Positive for slurred speech. Denies blurred vision, headache, numbness, tingling, weakness Psychiatric: Denies depression PAST MEDICAL HISTORY: As per history of present illness and as reviewed below otherwise noncontributory. SURGICAL HISTORY: As per history of present illness and as reviewed below otherwise noncontributory. SOCIAL HISTORY: As per history of present illness and as reviewed below otherwise noncontributory. FAMILY HISTORY: As per history of present illness and as reviewed below otherwise noncontributory. EXAMINATION OF ORGAN SYSTEMS/BODY AREAS: Constitutional: Blood pressure is 128/96, heart rate 80, respiratory rate 20 with an oxygen saturation 98% on room air. Temperature 36.9 General: Well-appearing woman who is in no acute distress Psychiatric: Appropriate mood and affect. Eyes: No scleral icterus or conjunctival erythema ENMT: Moist mucous membranes. No pharyngeal erythema Cardiovascular: Regular, rate, and rhythm. No gallops, murmurs, or rubs. Bilateral upper extremity pulses symmetric and intact. No peripheral edema. No JVD. Respiratory: Lungs clear to auscultation bilaterally. No wheezes, rales, or rhonchi. Gastrointestinal: Soft, non-tender, non-distended. Normoactive bowel sounds Genitourinary: No suprapubic tenderness Musculoskeletal: Normal range of motion. Skin: No lesions or abrasions. Neurological: AOx4. CN grossly intact. Stregth 5/5 in bilateral upper and lower extremity. Sensation is intact bilaterally in upper and lower extremity. Gait appears normal. Finger to nose, heel to cordero, rapid alternating movements intact. NIH of 0. MEDICAL DECISION MAKING AND COURSE IN THE ED WITH INTERPRETATION/REVIEW OF DIAGNOSTIC STUDIES: This is a 80-year-old woman with a past medical history of leiomyosarcoma, DVT, hypothyroidism who comes to the emergency department with concern for stroke after having 2 episodes of slurred speech last night who is neurologically intact without any focal neurological deficits. The patient has an NIH of 0. Patient is outside of the TPA window even if she were to have symptoms. However at this time given her age we will obtain a CT head and CTA of the head and neck given possibility of TIA. Will obtain CBC, CMP, EKG, troponin, Covid swab and a chest x-ray. The patient currently has a GCS of 16. I do not believe any further labs or imaging are indicated. Laboratory: CBC reveals a macrocytic anemia with a hemoglobin of 10.5 and hematocrit of 29.9 which is unchanged from prior. Thrombocytosis with a platelet count of 497. INR is 1. CMP reveals hyponatremia 132, hypochloremia at 97, elevated BUN at 30 and a creatinine of 1.4. Troponin is negative. Urinalysis and Covid are negative. Given the slurred speech and the macrocytic anemia I did send out a folate and B12 level. The radiological images were viewed by myself along with reading the report from the radiologist. Chest x-ray does not reveal any acute cardiopulmonary process. CT head does not reveal any acute intracranial hemorrhage or abnormality. CTA of the head and neck does not reveal any acute large vessel occlusion or abnormality. After imaging I did discuss the results with the patient and family member at bedside. Given the patient's renal function and given the contrast load we just provided I did provide the patient with 1 L of lactated Ringer's bolus. At this time I did discuss that I would like to admit for TIA observation. They were amenable to this plan. I did contact hospitalist who recommended ordering MRI and they will follow up on the imaging. They did accept the patient for admission. DISPOSITION: Patient is admitted to the hospital in observation in stable condition CONDITION: Fair PROCEDURES: None FINAL IMPRESSION(S)/DIAGNOSES: Acute slurred speech possibly secondary to transient ischemic attack Prakash Jose M.D. - Related Data Allergies Allergy/AdvReac Type Severity Reaction Status Date / Time adhesive Allergy Burning Verified 11/05/20 15:36 cephalexin [Cephalexin] Allergy Hives Verified 11/05/20 15:36 erythromycin lactobionate Allergy Agitation Verified 11/05/20 15:36 [From Erythrocin] iodine Allergy Difficulty Verified 11/05/20 15:36 Breathing Penicillins Allergy Hives Verified 11/05/20 15:36 pregabalin [From Lyrica] Allergy Other Verified 11/05/20 15:36 simvastatin Allergy Muscle Verified 11/05/20 15:36 Aches Home Meds: Home Meds Acetaminophen [Tylenol Extra Strength] 1,000 mg PO Q4H 01/21/14 [History] Calcium Carb, Cit/Magnesium Ox [Calmag Thins Tablet] 1 tab PO DAILY 01/21/14 [History] Furosemide [Lasix] 20 mg PO Q2D 01/21/14 [History] Lutein/Zeaxanthin [Lutein-Zeaxanthin 25-5 mg Sfgl] 1 cap PO DAILY 01/21/14 [History] Multivitamin [Multivitamins] 1 cap PO DAILY 01/21/14 [History] [place]-3 Fatty Acids/Fish Oil [Fish Oil 1,200 mg Softgel] 1,200 mg PO DAILY [History] Ubidecarenone [Co Q-10] 100 mg PO DAILY 01/21/14 [History] Vitamin B Complex [Super B-50 Complex] 1 cap PO DAILY 01/21/14 [History] predniSONE 5 mg PO SUTUTHSA 01/21/14 [History] ramipriL [Altace] 10 mg PO DAILY 01/21/14 [History] traMADol [Ultram] 50 mg PO Q6H 01/21/14 [History] Cholecalciferol (Vitamin D3) [Vitamin D3] 2,000 mg PO DAILY 02/27/18 [History] Glucosam/Chond/Hyalu/Cf Borate [Move Free Joint Health Tablet] 1 tab PO DAILY 02/27/18 [History] Vitamin E (Dl,Tocopheryl Acet) [Vitamin E] 200 unit PO DAILY 02/27/18 [History] Ascorbic Acid [Vitamin C] 1 tab PO DAILY 09/02/18 [History] Fluticasone Propionate 2 sprays NASBOTH DAILY PRN 11/04/19 [History] Levothyroxine [Synthroid] 88 mcg PO DAILY 11/04/19 [History] Omeprazole 40 mg PO DAILY 11/04/19 [History] Pravastatin [Pravachol] 40 mg PO BEDTIME 11/05/20 [History] Warfarin [Coumadin] 2.5 mg PO MOWEFR 11/05/20 [History] Warfarin [Coumadin] 5 mg PO SUTUTHSA 11/05/20 [History] Past Medical History HEENT History: Reports: Hard of Hearing, Macular Degeneration, Other (See Below) Other HEENT History: wears glasses, has upper permanent partial denture Cardiovascular History: Reports: Arrhythmia, High Cholesterol, Hypertension, Other (See Below) Other Cardiovascular History: states 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- took aspirin Respiratory History: Reports: Asthma Gastrointestinal History: Reports: GERD Genitourinary History: Reports: UTI, Recurrent Other Genitourinary History: left kidney removed 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: Reports: Other 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: 4 c sections and 1 secondary enclosure Musculoskeletal History: Reports: Arthritis, Fracture Other Musculoskeletal History: hx of fx left hand Neurological History: Reports: None Psychiatric History: Reports: None Endocrine/Metabolic History: Reports: Hypothyroidism Hematologic History: Reports: Blood Transfusion(s) Immunologic History: Reports: None Oncologic (Cancer) History: Reports: Other (See Below) Other Oncologic History: liposarcoma cancer Dermatologic History: Reports: None - Infectious Disease History Infectious Disease History: Reports: Chicken Pox, Measles, Mumps - Past Surgical History Head Surgeries/Procedures: Reports: None HEENT Surgical History: Reports: Tonsillectomy Cardiovascular Surgical History: Reports: Cardiac Ablation, Other (See Below) Other Cardiovascular Surgeries/Procedures: states 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 spleen removed Female Surgical History: Reports: Section Other Female Surgeries/Procedures: x4 Endocrine Surgical History: Reports: Other (See Below) Other Endocrine Surgeries/Procedures: Thyroid problems Musculoskeletal Surgical History: Reports: Other (See Below) Other Musculoskeletal Surgeries/Procedures:: R knee scope Social & Family History - Family History Family Medical History: No Pertinent Family History - Tobacco Use Tobacco Use Status *Q: Never Tobacco User Second Hand Smoke Exposure: No - Caffeine Use Caffeine Use: Reports: Coffee Other Caffeine Use: 3 cups daily Caffeine Use Comment: 2 cups/day - Recreational Drug Use Recreational Drug Use: No - Living Situation & Occupation Living situation: Reports: , with Spouse Occupation: Retired ED ROS GENERAL - Review of Systems Review Of Systems: See Below ED EXAM, GENERAL - Physical Exam Exam: See Below Course - Vital Signs Last Recorded V/S: Last Vital Signs Temp 37.1 C 11/05/20 15:25 Pulse 71 11/05/20 15:25 Resp 17 11/05/20 15:25 BP 118/61 11/05/20 15:25 Pulse Ox 100 11/05/20 16:21 - Orders/Labs/Meds Orders: Active Orders 24 hr Category Date Time Status Cardiac Monitoring [RC] . DIRECTED Care 11/05/20 10:30 Active Sodium Chloride 0.9% [Saline Flush] Med 11/05/20 10:30 Active 10 ml FLUSH ASDIRECTED PRN Sodium Chloride 0.9% [Saline Flush] Med 11/05/20 10:30 Active 2.5 ml FLUSH ASDIRECTED PRN Saline Lock Insert [OM.PC] Stat Oth 11/05/20 10:30 Ordered Medication Orders Acetaminophen (Acetaminophen 325 Mg Tab) 650 mg PO Q4H PRN PRN Reason: Pain (Mild 1-3)/fever Albuterol/Ipratropium (Albuterol/Ipratropium 3.0-0.5 Mg/3 Ml Neb Soln) 3 ml NEB Q4HRRT PRN PRN Reason: Shortness Of Breath/wheezing Aspirin (Aspirin 81 Mg Tab.Chew) 81 mg PO DAILY [facility] Last Admin: 11/05/20 19:08 Dose: 81 mg Documented by: MARRY Atorvastatin Calcium (Atorvastatin 40 Mg Tab) 80 mg PO Q24H [facility] Last Admin: 11/05/20 20:47 Dose: 80 mg Documented by: SHAYAN Lactated Ringer's (Ringers, Lactated) 1,000 mls @ 100 mls/hr IV ASDIRECTED JOAN Stop: 11/06/20 06:44 Levothyroxine Sodium (Levothyroxine 88 Mcg Tab) 88 mcg PO ACBREAKFAST JOAN Omeprazole (Omeprazole 20 Mg Cap.Cr) 40 mg PO ACBREAKFAST JOAN Ondansetron HCl (Ondansetron 4 Mg/2 Ml Sdv) 4 mg IVPUSH Q4H PRN PRN Reason: Nausea/Vomiting Sodium Chloride (Sodium Chloride 0.9% 10 Ml Syringe) 10 ml FLUSH ASDIRECTED PRN PRN Reason: Keep Vein Open Last Admin: 11/05/20 11:27 Dose: 10 ml Documented by: LACHELLE Sodium Chloride (Sodium Chloride 0.9% 2.5 Ml Syringe) 2.5 ml FLUSH ASDIRECTED PRN PRN Reason: Keep Vein Open Last Admin: 11/05/20 11:27 Dose: 2.5 ml Documented by: LACHELLE Labs: Laboratory Tests 11/05/20 11/05/20 11/05/20 Range/Units 10:31 10:31 10:31 WBC 4.55 (4.0-11.0) K/uL RBC 2.60 L (4.30-5.90) M/uL Hgb 10.5 L (12.0-16.0) g/dL Hct 29.9 L (36.0-46.0) % MCV 115.0 H (80.0-98.0) fL MCH 40.4 H (27.0-32.0) pg MCHC 35.1 (31.0-37.0) g/dL RDW Std Deviation 63.8 H (28.0-62.0) fl RDW Coeff of Kristofer 16 H (11.0-15.0) % Plt Count 497 H (150-400) K/uL MPV 12.00 (7.40-12.00) fL Neut % (Auto) 51.8 (48.0-80.0) % Lymph % (Auto) 28.4 (16.0-40.0) % [place] % (Auto) 14.5 (0.0-15.0) % Eos % (Auto) 4.2 (0.0-7.0) % Baso % (Auto) 1.1 (0.0-1.5) % Neut # (Auto) 2.4 (1.4-5.7) K/uL Lymph # (Auto) 1.3 (0.6-2.4) K/uL [place] # (Auto) 0.7 (0.0-0.8) K/uL Eos # (Auto) 0.2 (0.0-0.7) K/uL Baso # (Auto) 0.1 (0.0-0.1) K/uL Nucleated RBC % 0.0 /100WBC Nucleated RBCs # 0 K/uL INR 1.00 Sodium 132 L (136-145) mmol/L Potassium 4.2 (3.5-5.1) mmol/L Chloride 97 L (98-107) mmol/L Carbon Dioxide 25.3 (21.0-32.0) mmol/L BUN 30 H (7.0-18.0) mg/dL Creatinine 1.4 H (0.6-1.0) mg/dL Est Cr Clr Drug Dosing 26.51 mL/min Estimated GFR (MDRD) 36.2 ml/min Glucose 117 H (74-106) mg/dL Hemoglobin A1c (4.5 - 6.2) % Calcium 9.2 (8.5-10.1) mg/dL Magnesium 2.0 (1.8-2.4) mg/dL Iron (50-175) ug/dL TIBC (250-450) ug/dL % Saturation (20-55) % Total Bilirubin 0.5 (0.2-1.0) mg/dL AST 23 (15-37) IU/L ALT 30 (14-63) IU/L Alkaline Phosphatase 43 L (46-116) U/L Troponin I < 0.050 (0.000-0.056) ng/mL Total Protein 7.7 (6.4-8.2) g/dL Albumin 3.9 (3.4-5.0) g/dL Globulin 3.8 (2.6-4.0) g/dL Albumin/Globulin Ratio 1.0 (0.9-1.6) Vitamin B12 (193-986) pg/mL Folate (8.60-58.90) ng/mL TSH, Ultra Sensitive 0.91 (0.36-3.74) uIU/mL Urine Color Urine Appearance Urine pH (5.0-8.0) Ur Specific [place] (1.001-1.035) Urine Protein (NEGATIVE) mg/dL Urine Glucose (UA) (NEGATIVE) mg/dL Urine Ketones (NEGATIVE) mg/dL Urine Occult Blood (NEGATIVE) Urine Nitrite (NEGATIVE) Urine Bilirubin (NEGATIVE) Urine Urobilinogen (<2.0) EU/dL Ur Leukocyte Esterase (NEGATIVE) SARS-CoV-2 RNA (TESS) (NEGATIVE) 11/05/20 11/05/20 11/05/20 Range/Units 10:31 10:31 10:34 WBC (4.0-11.0) K/uL RBC (4.30-5.90) M/uL Hgb (12.0-16.0) g/dL Hct (36.0-46.0) % MCV (80.0-98.0) fL MCH (27.0-32.0) pg MCHC (31.0-37.0) g/dL RDW Std Deviation (28.0-62.0) fl RDW Coeff of Kristfoer (11.0-15.0) % Plt Count (150-400) K/uL MPV (7.40-12.00) fL Neut % (Auto) (48.0-80.0) % Lymph % (Auto) (16.0-40.0) % [place] % (Auto) (0.0-15.0) % Eos % (Auto) (0.0-7.0) % Baso % (Auto) (0.0-1.5) % Neut # (Auto) (1.4-5.7) K/uL Lymph # (Auto) (0.6-2.4) K/uL [place] # (Auto) (0.0-0.8) K/uL Eos # (Auto) (0.0-0.7) K/uL Baso # (Auto) (0.0-0.1) K/uL Nucleated RBC % /100WBC Nucleated RBCs # K/uL INR Sodium (136-145) mmol/L Potassium (3.5-5.1) mmol/L Chloride (98-107) mmol/L Carbon Dioxide (21.0-32.0) mmol/L BUN (7.0-18.0) mg/dL Creatinine (0.6-1.0) mg/dL Est Cr Clr Drug Dosing mL/min Estimated GFR (MDRD) ml/min Glucose (74-106) mg/dL Hemoglobin A1c 6.0 (4.5 - 6.2) % Calcium (8.5-10.1) mg/dL Magnesium (1.8-2.4) mg/dL Iron 129 (50-175) ug/dL TIBC 340 (250-450) ug/dL % Saturation 37.94 (20-55) % Total Bilirubin (0.2-1.0) mg/dL AST (15-37) IU/L ALT (14-63) IU/L Alkaline Phosphatase (46-116) U/L Troponin I (0.000-0.056) ng/mL Total Protein (6.4-8.2) g/dL Albumin (3.4-5.0) g/dL Globulin (2.6-4.0) g/dL Albumin/Globulin Ratio (0.9-1.6) Vitamin B12 942 (193-986) pg/mL Folate 74.50 H (8.60-58.90) ng/mL TSH, Ultra Sensitive (0.36-3.74) uIU/mL Urine Color Urine Appearance Urine pH (5.0-8.0) Ur Specific [place] (1.001-1.035) Urine Protein (NEGATIVE) mg/dL Urine Glucose (UA) (NEGATIVE) mg/dL Urine Ketones (NEGATIVE) mg/dL Urine Occult Blood (NEGATIVE) Urine Nitrite (NEGATIVE) Urine Bilirubin (NEGATIVE) Urine Urobilinogen (<2.0) EU/dL Ur Leukocyte Esterase (NEGATIVE) SARS-CoV-2 RNA (TESS) (NEGATIVE) 11/05/20 11/05/20 Range/Units 10:40 11:20 WBC (4.0-11.0) K/uL RBC (4.30-5.90) M/uL Hgb (12.0-16.0) g/dL Hct (36.0-46.0) % MCV (80.0-98.0) fL MCH (27.0-32.0) pg MCHC (31.0-37.0) g/dL RDW Std Deviation (28.0-62.0) fl RDW Coeff of Kristofer (11.0-15.0) % Plt Count (150-400) K/uL MPV (7.40-12.00) fL Neut % (Auto) (48.0-80.0) % Lymph % (Auto) (16.0-40.0) % [place] % (Auto) (0.0-15.0) % Eos % (Auto) (0.0-7.0) % Baso % (Auto) (0.0-1.5) % Neut # (Auto) (1.4-5.7) K/uL Lymph # (Auto) (0.6-2.4) K/uL [place] # (Auto) (0.0-0.8) K/uL Eos # (Auto) (0.0-0.7) K/uL Baso # (Auto) (0.0-0.1) K/uL Nucleated RBC % /100WBC Nucleated RBCs # K/uL INR Sodium (136-145) mmol/L Potassium (3.5-5.1) mmol/L Chloride (98-107) mmol/L Carbon Dioxide (21.0-32.0) mmol/L BUN (7.0-18.0) mg/dL Creatinine (0.6-1.0) mg/dL Est Cr Clr Drug Dosing mL/min Estimated GFR (MDRD) ml/min Glucose (74-106) mg/dL Hemoglobin A1c (4.5 - 6.2) % Calcium (8.5-10.1) mg/dL Magnesium (1.8-2.4) mg/dL Iron (50-175) ug/dL TIBC (250-450) ug/dL % Saturation (20-55) % Total Bilirubin (0.2-1.0) mg/dL AST (15-37) IU/L ALT (14-63) IU/L Alkaline Phosphatase (46-116) U/L Troponin I (0.000-0.056) ng/mL Total Protein (6.4-8.2) g/dL Albumin (3.4-5.0) g/dL Globulin (2.6-4.0) g/dL Albumin/Globulin Ratio (0.9-1.6) Vitamin B12 (193-986) pg/mL Folate (8.60-58.90) ng/mL TSH, Ultra Sensitive (0.36-3.74) uIU/mL Urine Color YELLOW Urine Appearance CLEAR Urine pH 7.0 (5.0-8.0) Ur Specific [place] 1.010 (1.001-1.035) Urine Protein NEGATIVE (NEGATIVE) mg/dL Urine Glucose (UA) NEGATIVE (NEGATIVE) mg/dL Urine Ketones NEGATIVE (NEGATIVE) mg/dL Urine Occult Blood NEGATIVE (NEGATIVE) Urine Nitrite NEGATIVE (NEGATIVE) Urine Bilirubin NEGATIVE (NEGATIVE) Urine Urobilinogen 0.2 (<2.0) EU/dL Ur Leukocyte Esterase NEGATIVE (NEGATIVE) SARS-CoV-2 RNA (TESS) NEGATIVE (NEGATIVE) Meds: Medications Generic Name Dose Route Start Last Admin Trade Name Freq PRN Reason Stop Dose Admin Acetaminophen 650 mg 11/05/20 14:28 Acetaminophen 325 Mg Tab PO Q4H PRN Pain (Mild 1-3)/fever Albuterol/Ipratropium 3 ml 11/05/20 14:28 Albuterol/Ipratropium 3.0-0.5 Mg/3 Ml Neb Soln NEB Q4HRRT PRN Shortness Of Breath/wheezing Aspirin 81 mg 11/05/20 19:15 11/05/20 19:08 Aspirin 81 Mg Tab.Chew PO 81 mg DAILY JOAN Administration Atorvastatin Calcium 80 mg 11/05/20 21:00 11/05/20 20:47 Atorvastatin 40 Mg Tab PO 80 mg Q24H JOAN Administration Lactated Ringer's 1,000 mls @ 100 mls/hr 11/05/20 20:45 Ringers, Lactated IV 11/06/20 06:44 ASDIRECTED JOAN Levothyroxine Sodium 88 mcg 11/06/20 07:30 Levothyroxine 88 Mcg Tab PO ACBREAKFAST JOAN Omeprazole 40 mg 11/06/20 07:30 Omeprazole 20 Mg Cap.Cr PO ACBREAKFAST JOAN Ondansetron HCl 4 mg 11/05/20 14:28 Ondansetron 4 Mg/2 Ml Sdv IVPUSH Q4H PRN Nausea/Vomiting Sodium Chloride 10 ml 11/05/20 10:30 11/05/20 11:27 Sodium Chloride 0.9% 10 Ml Syringe FLUSH 10 ml ASDIRECTED PRN Administration Keep Vein Open Sodium Chloride 2.5 ml 11/05/20 10:30 11/05/20 11:27 Sodium Chloride 0.9% 2.5 Ml Syringe FLUSH 2.5 ml ASDIRECTED PRN Administration Keep Vein Open Discontinued Medications Generic Name Dose Route Start Last Admin Trade Name Freq PRN Reason Stop Dose Admin Albuterol 5 mg 11/05/20 14:54 11/05/20 19:37 Albuterol 0.083% 2.5 Mg/3 Ml Neb Soln NEB 11/05/20 14:55 Not Given ONETIME STA Aspirin 81 mg 11/05/20 14:45 11/05/20 19:37 Aspirin 81 Mg Tab.Chew PO Not Given DAILY JOAN Atorvastatin Calcium 80 mg 11/06/20 09:00 Atorvastatin 40 Mg Tab PO Q24H JOAN Lactated Ringer's 1,000 mls @ 999 mls/hr 11/05/20 11:30 11/05/20 11:29 Ringers, Lactated IV 999 mls/hr ASDIRECTED JOAN Administration Pantoprazole Sodium 40 mg/ 10 mls @ 300 mls/hr 11/05/20 18:00 11/05/20 19:08 Sodium Chloride IV 300 mls/hr Q24H JOAN Administration Iopamidol 100 ml 11/05/20 13:19 11/05/20 13:19 Iopamidol 755 Mg/Ml 500 Ml Multipack Bottle IVPUSH 11/05/20 13:20 100 ml ONETIME STA Administration Pharmacy Consult 1 each 11/05/20 15:45 Pharmacy Consult Order .XX ASDIRECTED JOAN Pravastatin Sodium 40 mg 11/05/20 21:00 Pravastatin 40 Mg Tab PO BEDTIME JOAN Warfarin Sodium 1 each 11/06/20 14:00 Warfarin Sliding Scale PO DAILY@1400 JOAN Warfarin Sodium 5 mg 11/05/20 14:00 11/05/20 18:08 Warfarin 5 Mg Tab PO 11/05/20 14:01 Not Given 11/05/20@1400 [facility] Departure - Departure Time of Disposition: 13:20 Disposition: Admitted As Inpatient 66 Clinical Impression: TIA (transient ischemic attack) - Discharge Information Sepsis Event Note (ED) - Evaluation Sepsis Screening Result: No Definite Risk - Focused Exam Vital Signs: Vital Signs Temp Pulse Resp BP Pulse Ox 11/05/20 12:46 36.8 C 70 18 131/51 L 97 11/05/20 12:11 63 18 127/53 L 99 11/05/20 11:27 36.7 C 73 18 130/48 L 98 11/05/20 10:34 36.9 C 80 20 128/96 H 98 - My Orders Last 24 Hours: My Active Orders 11/05/20 10:30 Cardiac Monitoring [RC] . DIRECTED Sodium Chloride 0.9% [Saline Flush] 10 ml FLUSH ASDIRECTED PRN Sodium Chloride 0.9% [Saline Flush] 2.5 ml FLUSH ASDIRECTED PRN Saline Lock Insert [OM.PC] Stat - Assessment/Plan Last 24 Hours: My Active Orders 11/05/20 10:30 Cardiac Monitoring [RC] . DIRECTED Sodium Chloride 0.9% [Saline Flush] 10 ml FLUSH ASDIRECTED PRN Sodium Chloride 0.9% [Saline Flush] 2.5 ml FLUSH ASDIRECTED PRN Saline Lock Insert [OM.PC] Stat
[2020-11-05] MEDS ORDERED: Pantoprazole 40 MG in Sodium Chloride 0.9% 10 ML IV SCH (18:00)
--- NOTE | 2020-11-05 18:38 | PCM.HP.2 ---
<Alfredo Grace - Last Filed: 11/05/20 20:20> H&P History of Present Illness - General Date of Service: 11/05/20 Admit Problem/Dx: Admission Diagnosis/Problem Admission Diagnosis/Problem TIA, Transient ischemic attack - History of Present Illness Initial Comments - Free Text/Narative: 80-year-old female with past medical history to include arrhythmia, cholesterol, hypertension peripheral blood clots in leg last year, asthma, GERD, left kidney removal, hypothyroidism presented to the emergency department due to concerns of difficulty speaking overnight. Patient states that she contacted her primary care physician, Dr. Pichardo, this morning and out of concern was referred to emergency department for full evaluation. Patient states that yesterday evening she was speaking to her grandchildren and during she realized that she was not able to understand her words, became confused and felt like her "words did not make sense ". After this event patient stated she went to sleep. This morning to her granddaughter called her and out of concern asked the patient to contact her primary care physician. Patient denies any neurological deficits, any word slurring, or any difficulties with speech during ER presentation or at admission to med/surg. Admission patient denies fever, chills, nausea, vomiting, chest pain, shortness of breath, headaches, blurry vision, denies decreased sensations or decreased strength in any extremity. ER admission course to include laboratory, WBC 4.5, hemoglobin 10.5, hematocrit 29.9, platelet 47, sodium 132, potassium 4.2, BUN 30, creatinine 1.4, hemoglobin A1c 6.0, magnesium 2.0, TSH 0.91. Urinalysis negative. COVID-19 negative. Imagining to include Normal CT angiogram of the head and neck, Brain MRI reveals a 6 mm focus of high signal on diffusion in the left anterior thalamus likely represents recent ischemic infarct. Faint increase in no in the left paramedian lawrence likely representing subacute chronic ischemic infarct. Mild chronic small vessel matter ischemic changes in the supra tentorial white matter and brainstem. Chest x-ray impression, hyperinflation and chronic interstitial changes with basilar atelectasis versus scar,no dense consolidation. Patient to be admitted overnight for observation and referral to neurology. - Related Data Allergies/Adverse Reactions: Allergies Allergy/AdvReac Type Severity Reaction Status Date / Time adhesive Allergy Burning Verified 11/05/20 15:36 cephalexin [Cephalexin] Allergy Hives Verified 11/05/20 15:36 erythromycin lactobionate Allergy Agitation Verified 11/05/20 15:36 [From Erythrocin] iodine Allergy Difficulty Verified 11/05/20 15:36 Breathing Penicillins Allergy Hives Verified 11/05/20 15:36 pregabalin [From Lyrica] Allergy Other Verified 11/05/20 15:36 simvastatin Allergy Muscle Verified 11/05/20 15:36 Aches Home Medications: Home Meds Acetaminophen [Tylenol Extra Strength] 1,000 mg PO Q4H 01/21/14 [History] Calcium Carb, Cit/Magnesium Ox [Calmag Thins Tablet] 1 tab PO DAILY 01/21/14 [History] Furosemide [Lasix] 20 mg PO Q2D 01/21/14 [History] Lutein/Zeaxanthin [Lutein-Zeaxanthin 25-5 mg Sfgl] 1 cap PO DAILY 01/21/14 [History] Multivitamin [Multivitamins] 1 cap PO DAILY 01/21/14 [History] [place]-3 Fatty Acids/Fish Oil [Fish Oil 1,200 mg Softgel] 1,200 mg PO DAILY 01/21/14 [History] Ubidecarenone [Co Q-10] 100 mg PO DAILY 01/21/14 [History] Vitamin B Complex [Super B-50 Complex] 1 cap PO DAILY 01/21/14 [History] predniSONE 5 mg PO SUTUTHSA 01/21/14 [History] ramipriL [Altace] 10 mg PO DAILY 01/21/14 [History] traMADol [Ultram] 50 mg PO Q6H 01/21/14 [History] Cholecalciferol (Vitamin D3) [Vitamin D3] 2,000 mg PO DAILY 02/27/18 [History] Glucosam/Chond/Hyalu/Cf Borate [Move Free Joint Health Tablet] 1 tab PO DAILY 02/27/18 [History] Vitamin E (Dl,Tocopheryl Acet) [Vitamin E] 200 unit PO DAILY 02/27/18 [History] Ascorbic Acid [Vitamin C] 1 tab PO DAILY 09/02/18 [History] Fluticasone Propionate 2 sprays NASBOTH DAILY PRN 11/04/19 [History] Levothyroxine [Synthroid] 88 mcg PO DAILY 11/04/19 [History] Omeprazole 40 mg PO DAILY 11/04/19 [History] ALPRAZolam [Xanax] 1 tab PO DAILY PRN 11/05/20 [History] Pravastatin [Pravachol] 40 mg PO BEDTIME 11/05/20 [History] Aspirin 81 mg PO DAILY #21 tab.chew 11/06/20 [Rx] atorvaSTATin [Lipitor] 80 mg PO Q24H 7 Days #14 tablet 11/06/20 [Rx] Past Medical History HEENT History: Reports: Hard of Hearing, Macular Degeneration, Other (See Below) Other HEENT History: wears glasses, has upper permanent partial denture Cardiovascular History: Reports: Arrhythmia, High Cholesterol, Hypertension, Other (See Below) Other Cardiovascular History: states 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- took aspirin Respiratory History: Reports: Asthma Gastrointestinal History: Reports: GERD Genitourinary History: Reports: UTI, Recurrent Other Genitourinary History: left kidney removed 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: Reports: Other OB/BYN History: 4 c sections and 1 secondary enclosure Musculoskeletal History: Reports: Arthritis, Fracture Other Musculoskeletal History: hx of fx left hand Neurological History: Reports: None Psychiatric History: Reports: None Endocrine/Metabolic History: Reports: Hypothyroidism Hematologic History: Reports: Blood Transfusion(s) Immunologic History: Reports: None Oncologic (Cancer) History: Reports: Other (See Below) Other Oncologic History: liposarcoma cancer Dermatologic History: Reports: None - Infectious Disease History Infectious Disease History: Reports: Chicken Pox, Measles, Mumps - Past Surgical History Head Surgeries/Procedures: Reports: None HEENT Surgical History: Reports: Tonsillectomy Cardiovascular Surgical History: Reports: Cardiac Ablation, Other (See Below) Other Cardiovascular Surgeries/Procedures: states 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 spleen removed Female Surgical History: Reports: Section Other Female Surgeries/Procedures: x4 Endocrine Surgical History: Reports: Other (See Below) Other Endocrine Surgeries/Procedures: Thyroid problems Musculoskeletal Surgical History: Reports: Other (See Below) Other Musculoskeletal Surgeries/Procedures:: R knee scope Social & Family History - Family History Family Medical History: No Pertinent Family History - Tobacco Use Tobacco Use Status *Q: Never Tobacco User Second Hand Smoke Exposure: No - Caffeine Use Caffeine Use: Reports: Coffee Other Caffeine Use: 3 cups daily Caffeine Use Comment: 2 cups/day - Recreational Drug Use Recreational Drug Use: No - Living Situation & Occupation Living situation: Reports: , with Spouse Occupation: Retired H&P Review of Systems - Review of Systems: Review Of Systems: See Below General: Denies: Fever, Chills Pulmonary: Denies: Shortness of Breath, Wheezing, Cough Cardiovascular: Denies: Chest Pain, Palpitations, Orthopnea, Edema Gastrointestinal: Denies: Abdominal Pain, Distension, Nausea, Vomiting Genitourinary: Denies: Dysuria Psychiatric: Denies: Confusion Neurological: Denies: Confusion, Dizziness, Headache, Numbness, Trouble Speaking, Change in Speech Exam - Exam Exam: See Below - Vital Signs Vital Signs: Last Vital Signs Temp 98.7 F 11/05/20 15:25 Pulse 71 11/05/20 15:25 Resp 17 11/05/20 15:25 BP 118/61 11/05/20 15:25 Pulse Ox 100 11/05/20 16:21 Weight: 128.9 kg - Exam General: Alert, Oriented Lungs: Clear to Auscultation, Normal Respiratory Effort Cardiovascular: Regular Rate, Regular Rhythm GI/Abdominal Exam: Soft, Non-Tender Back Exam: No: CVA Tenderness (L), CVA Tenderness (R) Extremities: Normal Range of Motion, Non-Tender, No Pedal Edema Neurological: Strength Equal Bilateral, Normal Speech, Normal Tone, Sensation Intact Neuro Extensive - Mental Status: Alert, Oriented x3 Neuro Extensive - Motor, Sensory, Reflexes: CN II-XII Intact Psychiatric: Alert - Patient Data Lab Results Last 24 hrs: Laboratory Results - last 24 hr 11/05/20 11/05/20 11/05/20 Range/Units 10:31 10:31 10:31 WBC 4.55 (4.0-11.0) K/uL RBC 2.60 L (4.30-5.90) M/uL Hgb 10.5 L (12.0-16.0) g/dL Hct 29.9 L (36.0-46.0) % MCV 115.0 H (80.0-98.0) fL MCH 40.4 H (27.0-32.0) pg MCHC 35.1 (31.0-37.0) g/dL RDW Std Deviation 63.8 H (28.0-62.0) fl RDW Coeff of Kristofer 16 H (11.0-15.0) % Plt Count 497 H (150-400) K/uL MPV 12.00 (7.40-12.00) fL Neut % (Auto) 51.8 (48.0-80.0) % Lymph % (Auto) 28.4 (16.0-40.0) % [place] % (Auto) 14.5 (0.0-15.0) % Eos % (Auto) 4.2 (0.0-7.0) % Baso % (Auto) 1.1 (0.0-1.5) % Neut # (Auto) 2.4 (1.4-5.7) K/uL Lymph # (Auto) 1.3 (0.6-2.4) K/uL [place] # (Auto) 0.7 (0.0-0.8) K/uL Eos # (Auto) 0.2 (0.0-0.7) K/uL Baso # (Auto) 0.1 (0.0-0.1) K/uL Nucleated RBC % 0.0 /100WBC Nucleated RBCs # 0 K/uL INR 1.00 Sodium 132 L (136-145) mmol/L Potassium 4.2 (3.5-5.1) mmol/L Chloride 97 L (98-107) mmol/L Carbon Dioxide 25.3 (21.0-32.0) mmol/L BUN 30 H (7.0-18.0) mg/dL Creatinine 1.4 H (0.6-1.0) mg/dL Est Cr Clr Drug Dosing 26.51 mL/min Estimated GFR (MDRD) 36.2 ml/min Glucose 117 H (74-106) mg/dL Hemoglobin A1c (4.5 - 6.2) % Calcium 9.2 (8.5-10.1) mg/dL Magnesium 2.0 (1.8-2.4) mg/dL Iron (50-175) ug/dL TIBC (250-450) ug/dL % Saturation (20-55) % Total Bilirubin 0.5 (0.2-1.0) mg/dL AST 23 (15-37) IU/L ALT 30 (14-63) IU/L Alkaline Phosphatase 43 L (46-116) U/L Troponin I < 0.050 (0.000-0.056) ng/mL Total Protein 7.7 (6.4-8.2) g/dL Albumin 3.9 (3.4-5.0) g/dL Globulin 3.8 (2.6-4.0) g/dL Albumin/Globulin Ratio 1.0 (0.9-1.6) Vitamin B12 (193-986) pg/mL Folate (8.60-58.90) ng/mL TSH, Ultra Sensitive 0.91 (0.36-3.74) uIU/mL Urine Color Urine Appearance Urine pH (5.0-8.0) Ur Specific [place] (1.001-1.035) Urine Protein (NEGATIVE) mg/dL Urine Glucose (UA) (NEGATIVE) mg/dL Urine Ketones (NEGATIVE) mg/dL Urine Occult Blood (NEGATIVE) Urine Nitrite (NEGATIVE) Urine Bilirubin (NEGATIVE) Urine Urobilinogen (<2.0) EU/dL Ur Leukocyte Esterase (NEGATIVE) SARS-CoV-2 RNA (TESS) (NEGATIVE) 11/05/20 11/05/20 11/05/20 Range/Units 10:31 10:31 10:34 WBC (4.0-11.0) K/uL RBC (4.30-5.90) M/uL Hgb (12.0-16.0) g/dL Hct (36.0-46.0) % MCV (80.0-98.0) fL MCH (27.0-32.0) pg MCHC (31.0-37.0) g/dL RDW Std Deviation (28.0-62.0) fl RDW Coeff of Kristofer (11.0-15.0) % Plt Count (150-400) K/uL MPV (7.40-12.00) fL Neut % (Auto) (48.0-80.0) % Lymph % (Auto) (16.0-40.0) % [place] % (Auto) (0.0-15.0) % Eos % (Auto) (0.0-7.0) % Baso % (Auto) (0.0-1.5) % Neut # (Auto) (1.4-5.7) K/uL Lymph # (Auto) (0.6-2.4) K/uL [place] # (Auto) (0.0-0.8) K/uL Eos # (Auto) (0.0-0.7) K/uL Baso # (Auto) (0.0-0.1) K/uL Nucleated RBC % /100WBC Nucleated RBCs # K/uL INR Sodium (136-145) mmol/L Potassium (3.5-5.1) mmol/L Chloride (98-107) mmol/L Carbon Dioxide (21.0-32.0) mmol/L BUN (7.0-18.0) mg/dL Creatinine (0.6-1.0) mg/dL Est Cr Clr Drug Dosing mL/min Estimated GFR (MDRD) ml/min Glucose (74-106) mg/dL Hemoglobin A1c 6.0 (4.5 - 6.2) % Calcium (8.5-10.1) mg/dL Magnesium (1.8-2.4) mg/dL Iron 129 (50-175) ug/dL TIBC 340 (250-450) ug/dL % Saturation 37.94 (20-55) % Total Bilirubin (0.2-1.0) mg/dL AST (15-37) IU/L ALT (14-63) IU/L Alkaline Phosphatase (46-116) U/L Troponin I (0.000-0.056) ng/mL Total Protein (6.4-8.2) g/dL Albumin (3.4-5.0) g/dL Globulin (2.6-4.0) g/dL Albumin/Globulin Ratio (0.9-1.6) Vitamin B12 942 (193-986) pg/mL Folate 74.50 H (8.60-58.90) ng/mL TSH, Ultra Sensitive (0.36-3.74) uIU/mL Urine Color Urine Appearance Urine pH (5.0-8.0) Ur Specific [place] (1.001-1.035) Urine Protein (NEGATIVE) mg/dL Urine Glucose (UA) (NEGATIVE) mg/dL Urine Ketones (NEGATIVE) mg/dL Urine Occult Blood (NEGATIVE) Urine Nitrite (NEGATIVE) Urine Bilirubin (NEGATIVE) Urine Urobilinogen (<2.0) EU/dL Ur Leukocyte Esterase (NEGATIVE) SARS-CoV-2 RNA (TESS) (NEGATIVE) 11/05/20 11/05/20 Range/Units 10:40 11:20 WBC (4.0-11.0) K/uL RBC (4.30-5.90) M/uL Hgb (12.0-16.0) g/dL Hct (36.0-46.0) % MCV (80.0-98.0) fL MCH (27.0-32.0) pg MCHC (31.0-37.0) g/dL RDW Std Deviation (28.0-62.0) fl RDW Coeff of Kristofer (11.0-15.0) % Plt Count (150-400) K/uL MPV (7.40-12.00) fL Neut % (Auto) (48.0-80.0) % Lymph % (Auto) (16.0-40.0) % [place] % (Auto) (0.0-15.0) % Eos % (Auto) (0.0-7.0) % Baso % (Auto) (0.0-1.5) % Neut # (Auto) (1.4-5.7) K/uL Lymph # (Auto) (0.6-2.4) K/uL [place] # (Auto) (0.0-0.8) K/uL Eos # (Auto) (0.0-0.7) K/uL Baso # (Auto) (0.0-0.1) K/uL Nucleated RBC % /100WBC Nucleated RBCs # K/uL INR Sodium (136-145) mmol/L Potassium (3.5-5.1) mmol/L Chloride (98-107) mmol/L Carbon Dioxide (21.0-32.0) mmol/L BUN (7.0-18.0) mg/dL Creatinine (0.6-1.0) mg/dL Est Cr Clr Drug Dosing mL/min Estimated GFR (MDRD) ml/min Glucose (74-106) mg/dL Hemoglobin A1c (4.5 - 6.2) % Calcium (8.5-10.1) mg/dL Magnesium (1.8-2.4) mg/dL Iron (50-175) ug/dL TIBC (250-450) ug/dL % Saturation (20-55) % Total Bilirubin (0.2-1.0) mg/dL AST (15-37) IU/L ALT (14-63) IU/L Alkaline Phosphatase (46-116) U/L Troponin I (0.000-0.056) ng/mL Total Protein (6.4-8.2) g/dL Albumin (3.4-5.0) g/dL Globulin (2.6-4.0) g/dL Albumin/Globulin Ratio (0.9-1.6) Vitamin B12 (193-986) pg/mL Folate (8.60-58.90) ng/mL TSH, Ultra Sensitive (0.36-3.74) uIU/mL Urine Color YELLOW Urine Appearance CLEAR Urine pH 7.0 (5.0-8.0) Ur Specific [place] 1.010 (1.001-1.035) Urine Protein NEGATIVE (NEGATIVE) mg/dL Urine Glucose (UA) NEGATIVE (NEGATIVE) mg/dL Urine Ketones NEGATIVE (NEGATIVE) mg/dL Urine Occult Blood NEGATIVE (NEGATIVE) Urine Nitrite NEGATIVE (NEGATIVE) Urine Bilirubin NEGATIVE (NEGATIVE) Urine Urobilinogen 0.2 (<2.0) EU/dL Ur Leukocyte Esterase NEGATIVE (NEGATIVE) SARS-CoV-2 RNA (TESS) NEGATIVE (NEGATIVE) Result Diagrams: 11/05/20 10:31 11/05/20 10:31 Sepsis Event Note - Evaluation Sepsis Screening Result: No Definite Risk - Focused Exam Vital Signs: Vital Signs Temp Temp Pulse Resp BP Pulse Ox Pulse Ox 11/05/20 16:21 100 11/05/20 15:25 98.7 F 71 17 118/61 100 11/05/20 14:14 98.2 F 78 20 114/50 L 97 11/05/20 13:33 68 18 119/52 L 97 11/05/20 12:46 98.2 F 70 18 131/51 L 97 11/05/20 12:11 63 18 127/53 L 99 11/05/20 11:27 98.0 F 73 18 130/48 L 98 11/05/20 10:34 98.4 F 80 20 128/96 H 98 - Problem List (1) Stroke SNOMED Code(s): 724095645 ICD Code: I63.9 - CEREBRAL INFARCTION, UNSPECIFIED Status: Acute (2) Arrhythmia SNOMED Code(s): 746416371 ICD Code: I49.9 - CARDIAC ARRHYTHMIA, UNSPECIFIED Status: Acute (3) GERD (gastroesophageal reflux disease) SNOMED Code(s): 565513989 ICD Code: K21.9 - GASTRO-ESOPHAGEAL REFLUX DISEASE WITHOUT ESOPHAGITIS Status: Acute (4) History of nephrectomy, left SNOMED Code(s): 39687191423708 ICD Code: Z90.5 - ACQUIRED ABSENCE OF KIDNEY Status: Acute (5) Hypothyroidism SNOMED Code(s): 46468519 ICD Code: E03.9 - HYPOTHYROIDISM, UNSPECIFIED Status: Acute Problem List Initiated/Reviewed/Updated: Yes Orders Last 24hrs: Active Orders 24 hr Category Date Time Status Admission Status [Patient Status] [ADT] Stat ADT 11/05/20 13:20 Active Ambulate [RC] ASDIRECTED Care 11/05/20 14:28 Active Antiembolic Devices [RC] PER UNIT ROUTINE Care 11/05/20 14:29 Active Cardiac Monitoring [RC] . DIRECTED Care 11/05/20 10:30 Active Oxygen Therapy [RC] PRN Care 11/05/20 14:28 Active RT Aerosol Therapy [RC] ASDIRECTED Care 11/05/20 14:29 Active Telemetry Monitoring [Cardiac Monitoring] [RC] . Care 11/05/20 13:39 Active DIRECTED VTE/DVT Education [RC] PER UNIT ROUTINE Care 11/05/20 14:28 Active Vital Signs [RC] Q4H Care 11/05/20 14:28 Active Consult to Physical Therapy [PT Evaluation and Cons 11/05/20 18:19 Active Treatment] [CONS] Routine Heart Healthy Diet [DIET] Diet 11/05/20 Dinner Active Echo Comp wo Cont [US] Routine Exams 11/05/20 14:39 Taken BMP [BASIC METABOLIC PANEL,BMP] [CHEM] AM Lab 11/06/20 05:11 Ordered CBC WITH AUTO DIFF [HEME] AM Lab 11/06/20 05:11 Ordered INR,PT,PROTHROMBIN TIME [COAG] DAILY Lab 11/06/20 05:00 Ordered INR,PT,PROTHROMBIN TIME [COAG] DAILY Lab 11/07/20 05:00 Ordered INR,PT,PROTHROMBIN TIME [COAG] DAILY Lab 11/08/20 05:00 Ordered INR,PT,PROTHROMBIN TIME [COAG] DAILY Lab 11/09/20 05:00 Ordered INR,PT,PROTHROMBIN TIME [COAG] DAILY Lab 11/10/20 05:00 Ordered INR,PT,PROTHROMBIN TIME [COAG] DAILY Lab 11/11/20 05:00 Ordered INR,PT,PROTHROMBIN TIME [COAG] DAILY Lab 11/12/20 05:00 Ordered MAGNESIUM [CHEM] AM Lab 11/06/20 05:11 Ordered PHOSPHORUS [CHEM] AM Lab 11/06/20 05:11 Ordered Acetaminophen [TylenoL] Med 11/05/20 14:28 Active 650 mg PO Q4H PRN Albuterol/Ipratropium [DuoNeb 3.0-0.5 MG/3 ML] Med 11/05/20 14:28 Active 3 ml NEB Q4HRRT PRN Aspirin Med 11/05/20 14:45 Active 81 mg PO DAILY Lactated Ringers [Ringers, Lactated] 1,000 ml Med 11/05/20 11:30 Active IV ASDIRECTED Levothyroxine [Synthroid] Med 11/06/20 07:30 Active 88 mcg PO ACBREAKFAST Omeprazole Med 11/06/20 07:30 Active 40 mg PO ACBREAKFAST Ondansetron [Zofran] Med 11/05/20 14:28 Active 4 mg IVPUSH Q4H PRN Pantoprazole [ProTONIX IV] 40 mg Med 11/05/20 18:00 Active Sodium Chloride 0.9% [Normal Saline] 10 ml IV Q24H Pharmacy Consult [Consult to Pharmacy] Med 11/05/20 15:45 Active 1 each .XX ASDIRECTED Pravastatin [Pravachol] Med 11/05/20 21:00 Active 40 mg PO BEDTIME Sodium Chloride 0.9% [Saline Flush] Med 11/05/20 10:30 Active 10 ml FLUSH ASDIRECTED PRN Sodium Chloride 0.9% [Saline Flush] Med 11/05/20 10:30 Active 2.5 ml FLUSH ASDIRECTED PRN Saline Lock Insert [OM.PC] Stat Oth 11/05/20 10:30 Ordered Sequential Compression Device [OM.PC] Per Unit Routine Oth 11/05/20 14:28 Ordered Medication Orders Acetaminophen (Acetaminophen 325 Mg Tab) 650 mg PO Q4H PRN PRN Reason: Pain (Mild 1-3)/fever Albuterol/Ipratropium (Albuterol/Ipratropium 3.0-0.5 Mg/3 Ml Neb Soln) 3 ml NEB Q4HRRT PRN PRN Reason: Shortness Of Breath/wheezing Aspirin (Aspirin 81 Mg Tab.Chew) 81 mg PO DAILY [facility] Lactated Ringer's (Ringers, Lactated) 1,000 mls @ 999 mls/hr IV ASDIRECTED JOAN Last Admin: 11/05/20 11:29 Dose: 999 mls/hr Documented by: LACHELLE Pantoprazole Sodium 40 mg/ (Sodium Chloride) 10 mls @ 300 mls/hr IV Q24H JOAN Levothyroxine Sodium (Levothyroxine 88 Mcg Tab) 88 mcg PO ACBREAKFAST JOAN Omeprazole (Omeprazole 20 Mg Cap.Cr) 40 mg PO ACBREAKFAST JOAN Ondansetron HCl (Ondansetron 4 Mg/2 Ml Sdv) 4 mg IVPUSH Q4H PRN PRN Reason: Nausea/Vomiting Pharmacy Consult (Pharmacy Consult Order) 1 each .XX ASDIRECTED [facility] Pravastatin Sodium (Pravastatin 40 Mg Tab) 40 mg PO BEDTIME JOAN Sodium Chloride (Sodium Chloride 0.9% 10 Ml Syringe) 10 ml FLUSH ASDIRECTED PRN PRN Reason: Keep Vein Open Last Admin: 11/05/20 11:27 Dose: 10 ml Documented by: LACHELLE Sodium Chloride (Sodium Chloride 0.9% 2.5 Ml Syringe) 2.5 ml FLUSH ASDIRECTED PRN PRN Reason: Keep Vein Open Last Admin: 11/05/20 11:27 Dose: 2.5 ml Documented by: LACHELLE Assessment/Plan Comment:: Cerebral infarct- CTA neck, MRI brain, CT head performed. Brain MRI reveals a 6 mm focus of high signal on diffusion in the left anterior thalamus likely represents recent ischemic infarct. Patient started on aspirin 81 mg, atorvastatin 80 mg Q24hr. Will hold ramipril and furosemide to allow for permissive hypertension. Hypothyroidism- Levothyroxine 88 mcg Omeprazole 40 mg, Zofran 4 mg as needed, SCDs. Physical therapy consult for ambulation assessment. Consult neurology in the a.m. <Juancho Mendoza - Last Filed: 11/07/20 15:27> H&P History of Present Illness - General Admit Problem/Dx: Admission Diagnosis/Problem Admission Diagnosis/Problem TIA, Transient ischemic attack Exam - Vital Signs Vital Signs: Last Vital Signs Temp 36.2 C 11/06/20 11:24 Pulse 79 11/06/20 11:24 Resp 14 11/06/20 11:24 BP 120/57 L 11/06/20 11:24 Pulse Ox 98 11/06/20 11:24 - Patient Data Result Diagrams: 11/06/20 06:35 11/06/20 06:35 Assessment/Plan Comment:: I performed a history and physical exam of the patient and discussed management with resident. I have reviewed the residents note and agree with documented findings and plan unless otherwise specified in my note.
[2020-11-05] MEDS: Aspirin 81 MG Tab.Chew PO SCH (19:08)
[2020-11-05] MEDS ORDERED: Pravastatin 40 MG Tab PO SCH (21:00)
[2020-11-05] MEDS ORDERED: atorvaSTATin 40 MG Tab PO SCH (21:00)
[2020-11-05] MEDS ORDERED: ALPRAZolam 0.5 MG Tab PO PRN (22:22)
[2020-11-06] MEDS ORDERED: Levothyroxine 88 MCG Tab PO SCH (07:30)
[2020-11-06] MEDS ORDERED: Omeprazole 20 MG Cap.CR PO SCH (07:30)
[2020-11-06 07:37] LABS: POTASSIUM,K 4.9 mmol/L (3.5-5.1)
[2020-11-06] MEDS ORDERED: Pantoprazole 40 MG Vial IV SCH (09:00)
[2020-11-06] MEDS ORDERED: atorvaSTATin 40 MG Tab PO SCH (09:00)
[2020-11-06] MEDS: Aspirin 81 MG Tab.Chew PO SCH (09:18)
--- NOTE | 2020-11-06 11:35 | US ---
INDICATION: Leg pain and swelling TECHNIQUE: Ultrasound venous duplex lower left extremity. Compression venous exam was performed using chandra-scale, color Doppler, and spectral Doppler analysis. COMPARISON: None. FINDINGS: Sonographic imaging demonstrates the left common femoral, deep femoral, superficial femoral, popliteal, posterior tibial and greater saphenous and the contralateral right common femoral veins to be fully compressible with normal color Doppler blood flow. IMPRESSION: Normal left lower extremity venous ultrasound, no sign of deep venous thrombosis. Dictated by Ranulfo Rivas MD @ 11/06/2020 11:32:28 AM (Electronically Signed)
[2020-11-06] MEDS ORDERED: Warfarin Sliding Scale PO SCH (14:00)
--- NOTE | 2020-11-06 14:27 | PCM.DCSUM1 ---
<Alfredo Grace - Last Filed: 11/06/20 17:49> Discharge Summary - Hospital Course Free Text/Narrative:: 80-year-old female with past medical history to include arrhythmia, cholesterol, hypertension peripheral blood clots in leg last year, asthma, GERD, left kidney removal, hypothyroidism presented to the emergency department due to concerns of difficulty speaking overnight. Patient states that she contacted her primary care physician, Dr. Pichardo, this morning and out of concern was referred to emergency department for full evaluation. Patient states that yesterday evening she was speaking to her grandchildren and during she realized that she was not able to understand her words, became confused and felt like her "words did not make sense ". After this event patient stated she went to sleep. This morning to her granddaughter called her and out of concern asked the patient to contact her primary care physician. Patient denies any neurological deficits, any word slurring, or any difficulties with speech during ER presentation or at admission to med/surg. Admission patient denies fever, chills, nausea, vomiting, chest pain, shortness of breath, headaches, blurry vision, denies decreased sensations or decreased strength in any extremity. ER admission course to include laboratory, WBC 4.5, hemoglobin 10.5, hematocrit 29.9, platelet 47, sodium 132, potassium 4.2, BUN 30, creatinine 1.4, hemoglobin A1c 6.0, magnesium 2.0, TSH 0.91. Urinalysis negative. COVID-19 negative. Imagining to include Normal CT angiogram of the head and neck, Brain MRI reveals a 6 mm focus of high signal on diffusion in the left anterior thalamus likely represents recent ischemic infarct. Faint increase in no in the left paramedian lawrence likely representing subacute chronic ischemic infarct. Mild chronic small vessel matter ischemic changes in the supra tentorial white matter and brainst em. Chest x-ray impression, hyperinflation and chronic interstitial changes with basilar atelectasis versus scar,no dense consolidation. Patient stated left lower extremity/ankle pain the morning prior to discharge. Pain was most likely secondary to SCD compression, but due to patient's past history of DVTs, ultrasound lower extremity ordered. Results negative for DVT. Patient discharged home in stable condition with prescriptions for aspirin 81 mg daily, atorvastatin 80 mg daily. Patient to be referred to urology for further evaluation neurology. - Discharge Data Discharge Date: 11/06/20 Discharge Disposition: Home, Self-Care 01 Condition: Stable - Referral to Home Health Primary Care Physician: Toñito Pichardo MD - Discharge Diagnosis/Problem(s) (1) Stroke SNOMED Code(s): 396806177 ICD Code: I63.9 - CEREBRAL INFARCTION, UNSPECIFIED Status: Acute (2) Arrhythmia SNOMED Code(s): 612049853 ICD Code: I49.9 - CARDIAC ARRHYTHMIA, UNSPECIFIED Status: Acute (3) GERD (gastroesophageal reflux disease) SNOMED Code(s): 847980874 ICD Code: K21.9 - GASTRO-ESOPHAGEAL REFLUX DISEASE WITHOUT ESOPHAGITIS Status: Acute (4) History of nephrectomy, left SNOMED Code(s): 30467640036471 ICD Code: Z90.5 - ACQUIRED ABSENCE OF KIDNEY Status: Acute (5) Hypothyroidism SNOMED Code(s): 01077119 ICD Code: E03.9 - HYPOTHYROIDISM, UNSPECIFIED Status: Acute - Patient Summary/Data Consults: Consultations 11/05/20 18:19 Consult to Physical Therapy [PT Evaluation and Treatment] [CONS] Routine - Patient Instructions Diet: Usual Diet as Tolerated Activity: As Tolerated Notify Provider of: Fever, Increased Pain, Swelling and Redness, Nausea and/or Vomiting Other/Special Instructions: Report any signs of bleeding including blood in stool, to primary care physician. Please report any symptoms of headaches, dizziness, lightheadedness, decreased sensation and/or decreased strength in extremities to primary care physician. Report to emergency department if experiencing sudden symptoms such as trouble walking, trouble speaking, numbness of the face arm or leg, blurry vision, double vision, slurred speech. You were discharged home on atorvastatin 80mg which may cause side effects of muscle ache, muscle pain, joint pain, joint aches. Please report any of these symptoms to your primary care physician. - Discharge Plan Prescriptions/Med Rec: Aspirin 81 mg PO DAILY #21 tab.chew atorvaSTATin [Lipitor] 80 mg PO Q24H 7 Days #14 tablet Home Medications: Home Meds Acetaminophen [Tylenol Extra Strength] 1,000 mg PO Q4H 01/21/14 [History] Calcium Carb, Cit/Magnesium Ox [Calmag Thins Tablet] 1 tab PO DAILY 01/21/14 [History] Furosemide [Lasix] 20 mg PO Q2D 01/21/14 [History] Lutein/Zeaxanthin [Lutein-Zeaxanthin 25-5 mg Sfgl] 1 cap PO DAILY 01/21/14 [History] Multivitamin [Multivitamins] 1 cap PO DAILY 01/21/14 [History] [place]-3 Fatty Acids/Fish Oil [Fish Oil 1,200 mg Softgel] 1,200 mg PO DAILY 01/21/14 [History] Ubidecarenone [Co Q-10] 100 mg PO DAILY 01/21/14 [History] Vitamin B Complex [Super B-50 Complex] 1 cap PO DAILY 01/21/14 [History] predniSONE 5 mg PO SUTUTHSA 01/21/14 [History] ramipriL [Altace] 10 mg PO DAILY 01/21/14 [History] traMADol [Ultram] 50 mg PO Q6H 01/21/14 [History] Cholecalciferol (Vitamin D3) [Vitamin D3] 2,000 mg PO DAILY 02/27/18 [History] Glucosam/Chond/Hyalu/Cf Borate [Move Free Joint Health Tablet] 1 tab PO DAILY 02/27/18 [History] Vitamin E (Dl,Tocopheryl Acet) [Vitamin E] 200 unit PO DAILY 02/27/18 [History] Ascorbic Acid [Vitamin C] 1 tab PO DAILY 09/02/18 [History] Fluticasone Propionate 2 sprays NASBOTH DAILY PRN 11/04/19 [History] Levothyroxine [Synthroid] 88 mcg PO DAILY 11/04/19 [History] Omeprazole 40 mg PO DAILY 11/04/19 [History] ALPRAZolam [Xanax] 1 tab PO DAILY PRN 11/05/20 [History] Pravastatin [Pravachol] 40 mg PO BEDTIME 11/05/20 [History] Aspirin 81 mg PO DAILY #21 tab.chew 11/06/20 [Rx] atorvaSTATin [Lipitor] 80 mg PO Q24H 7 Days #14 tablet 11/06/20 [Rx] Patient Handouts: Transient Ischemic Attack, [id number], Warning Signs of a Stroke, Aspirin and Your Heart, Atorvastatin tablets Referrals: Tiffany Moore MD [Resident] - 11/16/20 2:30 pm - Discharge Summary/Plan Comment DC Time >30 min.: Yes Total # of Minutes for Discharge Time: 30 - General Info Date of Service: 11/06/20 Subjective Update: Patient denies headache, dizziness, lightheadedness, weakness in any extremity, decreased sensation in extremity, slurred speech, confusion. Patient does state mild lower left extremity/ankle pain. Ultrasound lower extremity ordered due to patient's history of DVTs, results negative for DVT. - Review of Systems General: Denies: Fever, Chills Pulmonary: Denies: Shortness of Breath, Cough Cardiovascular: Denies: Chest Pain, Dyspnea on Exertion, Edema Gastrointestinal: Denies: Abdominal Pain, Decreased Appetite, Difficulty Swallowing, Nausea, Vomiting Neurological: Denies: Confusion, Dizziness, Headache, Numbness, Trouble Speaking, Difficulty Walking, Weakness, Change in Speech Psychiatric: Denies: Confusion - Patient Data Vitals - Most Recent: Last Vital Signs Temp 97.2 F 11/06/20 11:24 Pulse 79 11/06/20 11:24 Resp 14 11/06/20 11:24 BP 120/57 L 11/06/20 11:24 Pulse Ox 98 11/06/20 11:24 Weight - Most Recent: 128.9 kg I&O - Last 24 hours: Intake & Output 11/05/20 11/06/20 11/06/20 22:59 06:59 14:59 Intake Total 2800 Output Total 2000 Balance 800 Lab Results - Last 24 hrs: Laboratory Results - last 24 hr 11/05/20 11/06/20 11/06/20 Range/Units 10:31 06:35 06:35 WBC 4.69 (4.0-11.0) K/uL RBC 2.32 L (4.30-5.90) M/uL Hgb 9.2 L (12.0-16.0) g/dL Hct 26.6 L (36.0-46.0) % MCV 114.7 H (80.0-98.0) fL MCH 39.7 H (27.0-32.0) pg MCHC 34.6 (31.0-37.0) g/dL RDW Std Deviation 67.5 H (28.0-62.0) fl RDW Coeff of Kristofer 16 H (11.0-15.0) % Plt Count 461 H (150-400) K/uL MPV 12.00 (7.40-12.00) fL Neut % (Auto) 45.3 L (48.0-80.0) % Lymph % (Auto) 33.0 (16.0-40.0) % [place] % (Auto) 16.6 H (0.0-15.0) % Eos % (Auto) 3.8 (0.0-7.0) % Baso % (Auto) 1.3 (0.0-1.5) % Neut # (Auto) 2.1 (1.4-5.7) K/uL Lymph # (Auto) 1.6 (0.6-2.4) K/uL [place] # (Auto) 0.8 (0.0-0.8) K/uL Eos # (Auto) 0.2 (0.0-0.7) K/uL Baso # (Auto) 0.1 (0.0-0.1) K/uL Nucleated RBC % 0.0 /100WBC Nucleated RBCs # 0 K/uL Sodium 137 (136-145) mmol/L Potassium 4.9 (3.5-5.1) mmol/L Chloride 101 (98-107) mmol/L Carbon Dioxide 27.0 (21.0-32.0) mmol/L BUN 20 H (7.0-18.0) mg/dL Creatinine 1.1 H (0.6-1.0) mg/dL Est Cr Clr Drug Dosing 33.74 mL/min Estimated GFR (MDRD) 47.8 ml/min Glucose 95 (74-106) mg/dL Hemoglobin A1c 6.0 (4.5 - 6.2) % Calcium 9.4 (8.5-10.1) mg/dL Phosphorus 3.9 (2.6-4.7) mg/dL Magnesium 2.0 (1.8-2.4) mg/dL Med Orders - Current: Current Medications Discontinued Medications Acetaminophen (Acetaminophen 325 Mg Tab) 650 mg PO Q4H PRN PRN Reason: Pain (Mild 1-3)/fever Last Admin: 11/05/20 22:36 Dose: 650 mg Documented by: Albuterol (Albuterol 0.083% 2.5 Mg/3 Ml Neb Soln) 5 mg NEB ONETIME STA Stop: 11/05/20 14:55 Last Admin: 11/05/20 19:37 Dose: Not Given Documented by: Albuterol/Ipratropium (Albuterol/Ipratropium 3.0-0.5 Mg/3 Ml Neb Soln) 3 ml NEB Q4HRRT PRN PRN Reason: Shortness Of Breath/wheezing Alprazolam (Alprazolam 0.5 Mg Tab) 0.5 mg PO DAILY PRN PRN Reason: Insomnia Last Admin: 11/05/20 22:36 Dose: 0.5 mg Documented by: Aspirin (Aspirin 81 Mg Tab.Chew) 81 mg PO DAILY [facility] Last Admin: 11/05/20 19:37 Dose: Not Given Documented by: Aspirin (Aspirin 81 Mg Tab.Chew) 81 mg PO DAILY [facility] Last Admin: 11/06/20 09:18 Dose: 81 mg Documented by: Atorvastatin Calcium (Atorvastatin 40 Mg Tab) 80 mg PO Q24H [facility] Atorvastatin Calcium (Atorvastatin 40 Mg Tab) 80 mg PO Q24H [facility] Last Admin: 11/05/20 20:47 Dose: 80 mg Documented by: Lactated Ringer's (Ringers, Lactated) 1,000 mls @ 999 mls/hr IV ASDIRECTED [facility] Last Admin: 11/05/20 11:29 Dose: 999 mls/hr Documented by: Pantoprazole Sodium 40 mg/ (Sodium Chloride) 10 mls @ 300 mls/hr IV Q24H [facility] Last Admin: 11/05/20 19:08 Dose: 300 mls/hr Documented by: Lactated Ringer's (Ringers, Lactated) 1,000 mls @ 100 mls/hr IV ASDIRECTED JOAN Stop: 11/06/20 06:44 Last Admin: 11/05/20 22:14 Dose: 100 mls/hr Documented by: Iopamidol (Iopamidol 755 Mg/Ml 500 Ml Multipack Bottle) 100 ml IVPUSH ONETIME STA Stop: 11/05/20 13:20 Last Admin: 11/05/20 13:19 Dose: 100 ml Documented by: Levothyroxine Sodium (Levothyroxine 88 Mcg Tab) 88 mcg PO ACBREAKFAST [facility] Last Admin: 11/06/20 07:34 Dose: 88 mcg Documented by: Omeprazole (Omeprazole 20 Mg Cap.Cr) 40 mg PO ACBREAKFAST [facility] Last Admin: 11/06/20 07:34 Dose: 40 mg Documented by: Ondansetron HCl (Ondansetron 4 Mg/2 Ml Sdv) 4 mg IVPUSH Q4H PRN PRN Reason: Nausea/Vomiting Pharmacy Consult (Pharmacy Consult Order) 1 each .XX ASDIRECTED JOAN Pravastatin Sodium (Pravastatin 40 Mg Tab) 40 mg PO BEDTIME [facility] Sodium Chloride (Sodium Chloride 0.9% 10 Ml Syringe) 10 ml FLUSH ASDIRECTED PRN PRN Reason: Keep Vein Open Last Admin: 11/05/20 11:27 Dose: 10 ml Documented by: Sodium Chloride (Sodium Chloride 0.9% 2.5 Ml Syringe) 2.5 ml FLUSH ASDIRECTED PRN PRN Reason: Keep Vein Open Last Admin: 11/05/20 11:27 Dose: 2.5 ml Documented by: Warfarin Sodium (Warfarin Sliding Scale) 1 each PO DAILY@1400 [facility] Warfarin Sodium (Warfarin 5 Mg Tab) 5 mg PO 11/05/20@1400 [facility] Stop: 11/05/20 14:01 Last Admin: 11/05/20 18:08 Dose: Not Given Documented by: - Exam General: Reports: Alert, Oriented Lungs: Reports: Clear to Auscultation, Normal Respiratory Effort Cardiovascular: Reports: Regular Rate, Regular Rhythm GI/Abdominal Exam: Soft, Non-Tender Extremities: No Pedal Edema, Other Neurological: Reports: No New Focal Deficit, Normal Speech, Strength Equal Bilateral, Sensation Intact Psy/Mental Status: Reports: Alert <Reji,Hooria - Last Filed: 11/07/20 15:38> Discharge Summary - Hospital Course Free Text/Narrative:: I have seen and evaluated the patient and agree with the residents note unless specified in my note . - Referral to Home Health Primary Care Physician: Toñito Pichardo MD - Patient Summary/Data Consults: Consultations 11/05/20 18:19 Consult to Physical Therapy [PT Evaluation and Treatment] [CONS] Routine - Patient Data Vitals - Most Recent: Last Vital Signs Temp 36.2 C 11/06/20 11:24 Pulse 79 11/06/20 11:24 Resp 14 11/06/20 11:24 BP 120/57 L 11/06/20 11:24 Pulse Ox 98 11/06/20 11:24 Med Orders - Current: Current Medications Discontinued Medications Acetaminophen (Acetaminophen 325 Mg Tab) 650 mg PO Q4H PRN PRN Reason: Pain (Mild 1-3)/fever Last Admin: 11/05/20 22:36 Dose: 650 mg Documented by: Albuterol (Albuterol 0.083% 2.5 Mg/3 Ml Neb Soln) 5 mg NEB ONETIME STA Stop: 11/05/20 14:55 Last Admin: 11/05/20 19:37 Dose: Not Given Documented by: Albuterol/Ipratropium (Albuterol/Ipratropium 3.0-0.5 Mg/3 Ml Neb Soln) 3 ml NEB Q4HRRT PRN PRN Reason: Shortness Of Breath/wheezing Alprazolam (Alprazolam 0.5 Mg Tab) 0.5 mg PO DAILY PRN PRN Reason: Insomnia Last Admin: 11/05/20 22:36 Dose: 0.5 mg Documented by: Aspirin (Aspirin 81 Mg Tab.Chew) 81 mg PO DAILY [facility] Last Admin: 11/05/20 19:37 Dose: Not Given Documented by: Aspirin (Aspirin 81 Mg Tab.Chew) 81 mg PO DAILY [facility] Last Admin: 11/06/20 09:18 Dose: 81 mg Documented by: Atorvastatin Calcium (Atorvastatin 40 Mg Tab) 80 mg PO Q24H JOAN Atorvastatin Calcium (Atorvastatin 40 Mg Tab) 80 mg PO Q24H [facility] Last Admin: 11/05/20 20:47 Dose: 80 mg Documented by: Lactated Ringer's (Ringers, Lactated) 1,000 mls @ 999 mls/hr IV ASDIRECTED [facility] Last Admin: 11/05/20 11:29 Dose: 999 mls/hr Documented by: Pantoprazole Sodium 40 mg/ (Sodium Chloride) 10 mls @ 300 mls/hr IV Q24H JOAN Last Admin: 11/05/20 19:08 Dose: 300 mls/hr Documented by: Lactated Ringer's (Ringers, Lactated) 1,000 mls @ 100 mls/hr IV ASDIRECTED JOAN Stop: 11/06/20 06:44 Last Admin: 11/05/20 22:14 Dose: 100 mls/hr Documented by: Iopamidol (Iopamidol 755 Mg/Ml 500 Ml Multipack Bottle) 100 ml IVPUSH ONETIME STA Stop: 11/05/20 13:20 Last Admin: 11/05/20 13:19 Dose: 100 ml Documented by: Levothyroxine Sodium (Levothyroxine 88 Mcg Tab) 88 mcg PO ACBREAKFAST [facility] Last Admin: 11/06/20 07:34 Dose: 88 mcg Documented by: Omeprazole (Omeprazole 20 Mg Cap.Cr) 40 mg PO ACBREAKFAST [facility] Last Admin: 11/06/20 07:34 Dose: 40 mg Documented by: Ondansetron HCl (Ondansetron 4 Mg/2 Ml Sdv) 4 mg IVPUSH Q4H PRN PRN Reason: Nausea/Vomiting Pharmacy Consult (Pharmacy Consult Order) 1 each .XX ASDIRECTED [facility] Pravastatin Sodium (Pravastatin 40 Mg Tab) 40 mg PO BEDTIME [facility] Sodium Chloride (Sodium Chloride 0.9% 10 Ml Syringe) 10 ml FLUSH ASDIRECTED PRN PRN Reason: Keep Vein Open Last Admin: 11/05/20 11:27 Dose: 10 ml Documented by: Sodium Chloride (Sodium Chloride 0.9% 2.5 Ml Syringe) 2.5 ml FLUSH ASDIRECTED PRN PRN Reason: Keep Vein Open Last Admin: 11/05/20 11:27 Dose: 2.5 ml Documented by: Warfarin Sodium (Warfarin Sliding Scale) 1 each PO DAILY@1400 [facility] Warfarin Sodium (Warfarin 5 Mg Tab) 5 mg PO 11/05/20@1400 [facility] Stop: 11/05/20 14:01 Last Admin: 11/05/20 18:08 Dose: Not Given Documented by:
--- NOTE | 2020-11-10 14:06 | ECHO ---
EXAM DATE: 11/05/20 PATIENT'S AGE: 80 The ECHO report has been scanned into [employer] and can be seen in this patient's EMR (Electronic Medical Record) under the REPORTS section. The report has also been scanned into PACS. [facility]
== END 2020-11-06 12:53 | disposition home or self-care (01) ==
LOC: MW.ED 10:17 → MW.MS 13:20 → UNDOADMOB 13:20
PROVIDERS: ADMIT Student in an Organized Health Care Education/Training Program; ATTEND Student in an Organized Health Care Education/Training Program
DX: I63.9 Cerebral infarction, unspecified (principal); I49.9 Cardiac arrhythmia, unspecified; K21.9 Gastro-esophageal reflux disease without esophagitis; E03.9 Hypothyroidism, unspecified; I10 Essential (primary) hypertension; Z90.5 Acquired absence of kidney; Z79.890 Hormone replacement therapy; Z79.899 Other long term (current) drug therapy; Z20.822 Contact with and (suspected) exposure to COVID-19
CPT/HCPCS: 36415; 70450; 70496; 70498; 70551; 71045; 80048; 80053; 81003; 82607; 82746; 83036; 83550; 83735; 84100; 84443; 84484; 85025; 85610; 93005; 93306; 93971; 96374; 97161; 99285; A9270; C9113; J7120; Q9967; U0002

== ENCOUNTER 2021-07-08 08:53 | Observation (INO) | payer MEDICARE ==
[2021-07-08 10:12] LABS: BLOOD UREA NITROGEN,BUN 29 mg/dL (7.0-18.0); CARBON DIOXIDE,CO2 24.4 mmol/L (21.0-32.0); CHLORIDE,CL 98 mmol/L (98-107); GLUCOSE RANDOM 118 mg/dL (74-106); POTASSIUM,K 4.4 mmol/L (3.5-5.1); SODIUM,NA 130 mmol/L (136-145)
[2021-07-08] MEDS ORDERED: Docusate Sodium 100 MG Cap PO PRN (10:47)
[2021-07-08] MEDS ORDERED: Albuterol/Ipratropium 3.0-0.5 MG/3 ML Neb Soln NEB PRN (10:47)
[2021-07-08] MEDS ORDERED: Ondansetron 4 MG/2 ML SDV IVPUSH PRN (10:47)
[2021-07-08] MEDS ORDERED: Acetaminophen 325 MG Tab PO PRN (10:47)
[2021-07-08] MEDS ORDERED: Lactated Ringers 1,000 ML IV SCH (11:00)
[2021-07-08] MEDS ORDERED: Metoclopramide 10 MG Tab PO PRN (13:52)
[2021-07-08] MEDS ORDERED: traMADol 50 MG Tab PO PRN (13:52)
[2021-07-08] MEDS ORDERED: predniSONE 5 MG Tab PO SCH (14:07)
[2021-07-08] MEDS ORDERED: Omeprazole 20 MG Cap.CR PO SCH (14:15)
[2021-07-08] MEDS ORDERED: REMDESIVIR 200 MG in Sodium Chloride 0.9% 250 ML IV ONE (14:30)
[2021-07-08] MEDS: Enoxaparin 30 MG/0.3 ML Syringe SUBCUT SCH (15:11)
[2021-07-08] MEDS: Fish Oil/Omega-3 Fatty Acids 1 Gm Cap PO SCH (20:10)
[2021-07-08] MEDS: atorvaSTATin 40 MG Tab PO SCH (20:10)
[2021-07-09] MEDS: ALPRAZolam 0.5 MG Tab PO PRN (01:18)
[2021-07-09] MEDS: Levothyroxine 88 MCG Tab PO SCH (06:40)
[2021-07-09] MEDS ORDERED: Omeprazole 20 MG Cap.CR PO SCH (07:30)
[2021-07-09 07:45] LABS: BLOOD UREA NITROGEN,BUN 21 mg/dL (7.0-18.0); CARBON DIOXIDE,CO2 25.8 mmol/L (21.0-32.0); CHLORIDE,CL 102 mmol/L (98-107); GLUCOSE RANDOM 92 mg/dL (74-106); POTASSIUM,K 4.3 mmol/L (3.5-5.1); SODIUM,NA 136 mmol/L (136-145)
[2021-07-09] MEDS: Ascorbic Acid 500 MG Tab PO SCH (08:01)
[2021-07-09] MEDS: Fish Oil/Omega-3 Fatty Acids 1 Gm Cap PO SCH ×2 (08:01→20:02)
[2021-07-09] MEDS: Cholecalciferol (Vitamin D3) 25 MCG Tab PO SCH (08:01)
[2021-07-09] MEDS: Calcium Carbonate 500 MG Tab.Chew PO SCH (08:03)
[2021-07-09] MEDS: Acetaminophen 500 MG Tab PO SCH (08:03)
[2021-07-09] MEDS: Aspirin 81 MG Tab.Chew PO SCH (08:03)
[2021-07-09] MEDS: Beta-Carotene (Vitamin A) w/Vitamin C & E plus Minerals Tab PO SCH (08:06)
[2021-07-09] MEDS: Magnesium Oxide 400 MG Tab PO SCH (08:11)
[2021-07-09] MEDS ORDERED: Metoprolol Succinate 25 MG Tab.ER PO SCH ×2 (09:00→21:00)
[2021-07-09] MEDS ORDERED: Non-Formulary Medication 1 Each (Ubidecarenone 100 MG Capsule) PO SCH (09:00)
[2021-07-09] MEDS ORDERED: VITAMIN B COMPLEX PO SCH (09:00)
[2021-07-09] MEDS: REMDESIVIR 100 MG in Sodium Chloride 0.9% 100 ML IV SCH (11:20)
[2021-07-09] MEDS: Enoxaparin 30 MG/0.3 ML Syringe SUBCUT SCH (15:01)
[2021-07-09] MEDS ORDERED: Melatonin 3 MG Tab PO PRN (15:17)
[2021-07-09] MEDS: atorvaSTATin 40 MG Tab PO SCH (20:01)
[2021-07-10] MEDS: ALPRAZolam 0.5 MG Tab PO PRN (00:30)
[2021-07-10] MEDS: Levothyroxine 88 MCG Tab PO SCH (06:39)
[2021-07-10] MEDS: Magnesium Oxide 400 MG Tab PO SCH (08:49)
[2021-07-10] MEDS: Aspirin 81 MG Tab.Chew PO SCH (08:49)
[2021-07-10] MEDS: Fish Oil/Omega-3 Fatty Acids 1 Gm Cap PO SCH (08:49)
[2021-07-10] MEDS: Cholecalciferol (Vitamin D3) 25 MCG Tab PO SCH (08:50)
[2021-07-10] MEDS: Ascorbic Acid 500 MG Tab PO SCH (08:50)
[2021-07-10] MEDS: Beta-Carotene (Vitamin A) w/Vitamin C & E plus Minerals Tab PO SCH (08:51)
[2021-07-10] MEDS: Calcium Carbonate 500 MG Tab.Chew PO SCH (08:51)
[2021-07-10] MEDS: Acetaminophen 500 MG Tab PO SCH (08:51)
[2021-07-10] MEDS: REMDESIVIR 100 MG in Sodium Chloride 0.9% 100 ML IV SCH (12:49)
== END 2021-07-10 14:40 | disposition home or self-care (01) ==
LOC: MW.CHFP 08:53 → MW.MS 10:44
PROVIDERS: ADMIT Internal Medicine; ATTEND Internal Medicine
DX: U07.1 COVID-19 (principal); I10 Essential (primary) hypertension; J45.909 Unspecified asthma, uncomplicated; E78.00 Pure hypercholesterolemia, unspecified; E78.2 Mixed hyperlipidemia; F41.9 Anxiety disorder, unspecified; K21.9 Gastro-esophageal reflux disease without esophagitis; E03.9 Hypothyroidism, unspecified; Z90.49 Acquired absence of other specified parts of digestive tract; Z88.8 Allergy status to other drugs, medicaments and biological substances; Z88.0 Allergy status to penicillin; Z79.899 Other long term (current) drug therapy; Z98.890 Other specified postprocedural states; Z90.5 Acquired absence of kidney
CPT/HCPCS: 36415; 71045; 80048; 80053; 83735; 85025; 97110; 97116; 97163; A9270; J1650; J7050; J7120; U0002

== ENCOUNTER 2023-05-23 10:03 | Emergency (ER) | payer MEDICARE, OTHER ==
[2023-05-23 10:51] LABS: HEMATOCRIT 26.5 % (37.0-47.0); HEMOGLOBIN 9.2 g/dL (12.0-16.0); MEAN CORPUSCULAR HEMOGLOBIN 41.8 pg (28.0-32.0); MEAN CORPUSCULAR HGB CONC 34.7 g/dL (32.0-36.0); MEAN CORPUSCULAR VOLUME 120.5 fL (83.0-99.0); MEAN PLATELET VOLUME 11.8 fL (9.4-12.3); NRBC ABSOLUTE 0.06 K/uL (0.00-0.02); NRBC PERCENT 1.2 /100WBC (0.0-0.2); WHITE BLOOD CELL COUNT,WBC 4.99 K/uL (3.9-11.3)
[2023-05-23 11:14] LABS: BASOPHILS ABSOLUTE MAN 0.05 K/uL (0.00-0.20); BASOPHILS PERCENT MAN 1 % (0-1); EOSINOPHILS ABSOLUTE MAN 0.25 K/uL (0.00-0.45); EOSINOPHILS PERCENT MAN 5 % (0-6); LYMPHOCYTES PERCENT MAN 12 % (24-44); MONOCYTES ABSOLUTE MAN 0.65 K/uL (0.00-0.80); MONOCYTES PERCENT MAN 13 % (0-8); SEG NEUTROPHILS ABSOLUTE MAN 3.44 K/uL (1.80-7.70); SEG NEUTROPHILS PERCENT MAN 69 % (41-71)
[2023-05-23 11:15] LABS: PLATELET COUNT,PLT 361 K/uL (150-400)
[2023-05-23 11:27] LABS: A/G RATIO 0.9 (0.9-1.6); ALBUMIN 3.2 g/dL (3.4-5.0); BILIRUBIN TOTAL 0.3 mg/dL (0.2-1.0); CALCIUM 9.4 mg/dL (8.5-10.1); CREATININE 1.3 mg/dL (0.6-1.0); EST CRCL DRUG DOSING (CG) 27.12 mL/min; POTASSIUM,K 4.3 mmol/L (3.5-5.1); PROTEIN TOTAL,TP 6.8 g/dL (6.4-8.2)
[2023-05-23] MEDS: traMADol 50 MG Tab PO ONE (12:27)
[2023-05-23] MEDS: Lidocaine 4% 1 each Patch TOP STA (13:20)
== END 2023-05-23 17:45 | disposition home or self-care (01) ==
LOC: MW.ED 10:03
DX: M25.562 Pain in left knee (principal); E78.00 Pure hypercholesterolemia, unspecified; I10 Essential (primary) hypertension; K21.9 Gastro-esophageal reflux disease without esophagitis; E03.9 Hypothyroidism, unspecified; Z88.8 Allergy status to other drugs, medicaments and biological substances; Z91.048 Other nonmedicinal substance allergy status; Z88.0 Allergy status to penicillin; Z88.1 Allergy status to other antibiotic agents; Z79.899 Other long term (current) drug therapy; Z79.82 Long term (current) use of aspirin; Z86.19 Personal history of other infectious and parasitic diseases; Z75.8 Other problems related to medical facilities and other health care
CPT/HCPCS: 36415; 73562; 80053; 85025; 93970; 96374; 96376; 99284; A9270; J3360

== ENCOUNTER 2023-05-24 10:25 | Inpatient (IN) | payer MEDICARE, OTHER ==
[2023-05-24] MEDS: Orphenadrine 60 MG/2 ML Inj IM ONE (11:13)
[2023-05-24] MEDS: Ketorolac 30 MG/ML SDV IM STA (11:13)
[2023-05-24] MEDS: Lidocaine 4% 1 each Patch TOP PRN (11:14)
[2023-05-24 12:03] LABS: A/G RATIO 0.9 (0.9-1.6); ALBUMIN 3.4 g/dL (3.4-5.0); BILIRUBIN TOTAL 0.4 mg/dL (0.2-1.0); CALCIUM 9.2 mg/dL (8.5-10.1); CARBON DIOXIDE,CO2 26.2 mmol/L (21.0-32.0); CREATININE 1.3 mg/dL (0.6-1.0); EST CRCL DRUG DOSING (CG) 27.12 mL/min; POTASSIUM,K 4.1 mmol/L (3.5-5.1)
[2023-05-24 12:43] LABS: HEMATOCRIT 28.6 % (37.0-47.0); HEMOGLOBIN 10.1 g/dL (12.0-16.0); MEAN CORPUSCULAR HEMOGLOBIN 41.7 pg (28.0-32.0); MEAN CORPUSCULAR HGB CONC 35.3 g/dL (32.0-36.0); MEAN PLATELET VOLUME 11.8 fL (9.4-12.3); NRBC ABSOLUTE 0.05 K/uL (0.00-0.02); NRBC PERCENT 1.3 /100WBC (0.0-0.2); PLATELET COUNT,PLT 362 K/uL (150-400); RED BLOOD CELL COUNT 2.42 M/uL (4.10-5.30); WHITE BLOOD CELL COUNT,WBC 3.75 K/uL (3.9-11.3)
[2023-05-24 12:51] LABS: MEAN CORPUSCULAR VOLUME 118.2 fL (83.0-99.0)
[2023-05-24] MEDS: Sodium Chloride 0.9% 2.5 ML Syringe FLUSH PRN (13:02)
[2023-05-24] MEDS: Sodium Chloride 0.9% 10 ML Syringe FLUSH PRN (13:02)
[2023-05-24 13:23] LABS: LYMPHOCYTES ABSOLUTE MAN 0.86 K/uL (1.00-4.80); LYMPHOCYTES PERCENT MAN 23 % (24-44); SEG NEUTROPHILS ABSOLUTE MAN 1.61 K/uL (1.80-7.70); SEG NEUTROPHILS PERCENT MAN 43 % (41-71)
[2023-05-24 13:24] LABS: ACANTHOCYTES FEW; BASOPHILS ABSOLUTE MAN 0.11 K/uL (0.00-0.20); BASOPHILS PERCENT MAN 3 % (0-1); ELLIPTOCYTES 1+ SLIGHT; EOSINOPHILS ABSOLUTE MAN 0.26 K/uL (0.00-0.45); EOSINOPHILS PERCENT MAN 7 % (0-6); HOWELL JOLLY BODIES 1+ SLIGHT; METAMYELOCYTE ABSOLUTE MAN 0.04; METAMYELOCYTE PERCENT MAN 1 %; MONOCYTES ABSOLUTE MAN 0.75 K/uL (0.00-0.80); MONOCYTES PERCENT MAN 20 % (0-8); MYELOCYTE ABSOLUTE MAN 0.11; MYELOCYTE PERCENT MAN 3 %; POIKILOCYTOSIS 2+ MODERATE; TARGET CELLS 1+ SLIGHT
[2023-05-24] MEDS ORDERED: Ondansetron 4 MG Tab.DIS PO PRN (13:59)
[2023-05-24] MEDS ORDERED: Polyethylene Glycol 3350 Powder 17 GM Packet PO PRN (13:59)
[2023-05-24] MEDS ORDERED: Albuterol/Ipratropium 3.0-0.5 MG/3 ML Neb Soln NEB PRN (13:59)
[2023-05-24] MEDS ORDERED: Levothyroxine 88 MCG Tab PO SCH (14:45)
[2023-05-24] MEDS: valACYclovir 500 MG Tab PO SCH (14:48)
[2023-05-24] MEDS: Enoxaparin 40 MG/0.4 ML Syringe SUBCUT SCH (14:49)
[2023-05-24] MEDS: Metoprolol Succinate 25 MG Tab.ER PO SCH (15:21)
[2023-05-24] MEDS: traMADol 50 MG Tab PO PRN (15:22)
[2023-05-24] MEDS: Sodium Chloride 0.9% 500 ML IV SCH (15:24)
[2023-05-24 18:44] LABS: CALCIUM 9.1 mg/dL (8.5-10.1); CARBON DIOXIDE,CO2 24.7 mmol/L (21.0-32.0); CREATININE 1.3 mg/dL (0.6-1.0); EST CRCL DRUG DOSING (CG) 27.12 mL/min; POTASSIUM,K 4.1 mmol/L (3.5-5.1)
[2023-05-24] MEDS: atorvaSTATin 40 MG Tab PO SCH (20:58)
[2023-05-24] MEDS: Gabapentin 100 MG Cap PO SCH (21:00)
[2023-05-24] MEDS: Ketorolac 30 MG/ML SDV IVPUSH PRN (21:13)
[2023-05-25 06:15] LABS: HEMATOCRIT 27.7 % (37.0-47.0); HEMOGLOBIN 9.8 g/dL (12.0-16.0); MEAN CORPUSCULAR HEMOGLOBIN 41.7 pg (28.0-32.0); MEAN CORPUSCULAR HGB CONC 35.4 g/dL (32.0-36.0); MEAN CORPUSCULAR VOLUME 117.9 fL (83.0-99.0); MEAN PLATELET VOLUME 12.1 fL (9.4-12.3); NRBC ABSOLUTE 0.05 K/uL (0.00-0.02); NRBC PERCENT 1.2 /100WBC (0.0-0.2); PLATELET COUNT,PLT 348 K/uL (150-400); RED BLOOD CELL COUNT 2.35 M/uL (4.10-5.30); WHITE BLOOD CELL COUNT,WBC 4.19 K/uL (3.9-11.3)
[2023-05-25 06:42] LABS: A/G RATIO 0.9 (0.9-1.6); ALBUMIN 3.2 g/dL (3.4-5.0); BILIRUBIN TOTAL 0.4 mg/dL (0.2-1.0); CARBON DIOXIDE,CO2 24.8 mmol/L (21.0-32.0); CREATININE 1.2 mg/dL (0.6-1.0); EST CRCL DRUG DOSING (CG) 29.38 mL/min; PROTEIN TOTAL,TP 6.7 g/dL (6.4-8.2)
[2023-05-25 07:16] LABS: BASOPHILS ABSOLUTE MAN 0.17 K/uL (0.00-0.20); BASOPHILS PERCENT MAN 4 % (0-1); ELLIPTOCYTES 1+ SLIGHT; EOSINOPHILS ABSOLUTE MAN 0.17 K/uL (0.00-0.45); EOSINOPHILS PERCENT MAN 4 % (0-6); LYMPHOCYTES ABSOLUTE MAN 1.22 K/uL (1.00-4.80); LYMPHOCYTES PERCENT MAN 29 % (24-44); METAMYELOCYTE ABSOLUTE MAN 0.04; METAMYELOCYTE PERCENT MAN 1 %; MONOCYTES ABSOLUTE MAN 0.59 K/uL (0.00-0.80); MONOCYTES PERCENT MAN 14 % (0-8); MYELOCYTE ABSOLUTE MAN 0.13; MYELOCYTE PERCENT MAN 3 %; NRBC MANUAL 2 %; POIKILOCYTOSIS 2+ MODERATE; SCHISTOCYTES FEW; SEG NEUTROPHILS ABSOLUTE MAN 1.89 K/uL (1.80-7.70); SEG NEUTROPHILS PERCENT MAN 45 % (41-71); TARGET CELLS 1+ SLIGHT
[2023-05-25] MEDS: Levothyroxine 88 MCG Tab PO SCH (07:46)
[2023-05-25] MEDS ORDERED: Non-Formulary Medication 1 Each (Ramipril 5 MG Capsule) PO SCH (09:15)
[2023-05-25] MEDS: Gabapentin 300 MG Cap PO SCH (09:58)
[2023-05-25] MEDS: Sodium Chloride 1 GM Tab PO ONE (09:59)
[2023-05-25] MEDS: oxyCODONE 5 MG Tab PO SCH ×2 (10:00→11:38)
[2023-05-25] MEDS: valACYclovir 500 MG Tab PO SCH (17:35)
[2023-05-26 06:12] LABS: HEMATOCRIT 29.4 % (37.0-47.0); HEMOGLOBIN 10.3 g/dL (12.0-16.0); MEAN CORPUSCULAR HEMOGLOBIN 41.7 pg (28.0-32.0); MEAN PLATELET VOLUME 12.8 fL (9.4-12.3); NRBC ABSOLUTE 0.07 K/uL (0.00-0.02); NRBC PERCENT 2.8 /100WBC (0.0-0.2); PLATELET COUNT,PLT 122 K/uL (150-400); RED BLOOD CELL COUNT 2.47 M/uL (4.10-5.30)
[2023-05-26 06:34] LABS: A/G RATIO 0.9 (0.9-1.6); ALBUMIN 3.1 g/dL (3.4-5.0); BILIRUBIN TOTAL 0.4 mg/dL (0.2-1.0); CALCIUM 8.8 mg/dL (8.5-10.1); CARBON DIOXIDE,CO2 23.3 mmol/L (21.0-32.0); CREATININE 1.4 mg/dL (0.6-1.0); EST CRCL DRUG DOSING (CG) 25.19 mL/min; POTASSIUM,K 4.9 mmol/L (3.5-5.1); PROTEIN TOTAL,TP 6.7 g/dL (6.4-8.2)
[2023-05-26 07:25] LABS: BASOPHILS ABSOLUTE MAN 0.08 K/uL (0.00-0.20); BASOPHILS PERCENT MAN 3 % (0-1); EOSINOPHILS ABSOLUTE MAN 0.08 K/uL (0.00-0.45); EOSINOPHILS PERCENT MAN 3 % (0-6); LYMPHOCYTES PERCENT MAN 40 % (24-44); MONOCYTES ABSOLUTE MAN 0.28 K/uL (0.00-0.80); MONOCYTES PERCENT MAN 11 % (0-8); MYELOCYTE ABSOLUTE MAN 0.03; MYELOCYTE PERCENT MAN 1 %; SEG NEUTROPHILS ABSOLUTE MAN 1.05 K/uL (1.80-7.70); SEG NEUTROPHILS PERCENT MAN 42 % (41-71)
[2023-05-26 07:26] LABS: NRBC MANUAL 6 %; POIKILOCYTOSIS 2+ MODERATE; TARGET CELLS 1+ SLIGHT
[2023-05-26 07:27] LABS: ACANTHOCYTES FEW; ELLIPTOCYTES FEW; SCHISTOCYTES FEW; TEARDROP CELLS FEW
[2023-05-26] MEDS: Enoxaparin 30 MG/0.3 ML Syringe SUBCUT SCH (13:54)
[2023-05-26] MEDS: Lactated Ringers 500 ML IV ONE (13:54)
[2023-05-26] MEDS: ALPRAZolam 0.5 MG Tab PO PRN (20:08)
[2023-05-27 06:18] LABS: BASOPHILS ABSOLUTE AUTO 0.05 K/uL (0.00-0.20); BASOPHILS PERCENT AUTO 1.1 % (0.0-1.0); EOSINOPHILS ABSOLUTE AUTO 0.08 K/uL (0.00-0.45); EOSINOPHILS PERCENT AUTO 1.8 % (0.0-6.0); HEMATOCRIT 28.8 % (37.0-47.0); HEMOGLOBIN 10.1 g/dL (12.0-16.0); IMMATURE GRAN ABSOLUTE AUTO 0.15 K/uL (0.00-0.05); IMMATURE GRAN PERCENT AUTO 3.4 % (0.0-0.4); LYMPHOCYTES ABSOLUTE AUTO 1.09 K/uL (1.00-4.80); LYMPHOCYTES PERCENT AUTO 24.6 % (24.0-44.0); MEAN CORPUSCULAR HEMOGLOBIN 41.6 pg (28.0-32.0); MEAN CORPUSCULAR HGB CONC 35.1 g/dL (32.0-36.0); MEAN CORPUSCULAR VOLUME 118.5 fL (83.0-99.0); MEAN PLATELET VOLUME 12.4 fL (9.4-12.3); MONOCYTES ABSOLUTE AUTO 0.51 K/uL (0.00-0.80); MONOCYTES PERCENT AUTO 11.5 % (0.0-8.0); NEUTROPHILS ABSOLUTE AUTO 2.55 K/uL (1.80-7.70); NEUTROPHILS PERCENT AUTO 57.6 % (41.0-71.0); NRBC ABSOLUTE 0.09 K/uL (0.00-0.02); PLATELET COUNT,PLT 244 K/uL (150-400); RED BLOOD CELL COUNT 2.43 M/uL (4.10-5.30); WHITE BLOOD CELL COUNT,WBC 4.43 K/uL (3.9-11.3)
[2023-05-27 07:48] LABS: A/G RATIO 0.9 (0.9-1.6); BILIRUBIN TOTAL 0.4 mg/dL (0.2-1.0); CARBON DIOXIDE,CO2 21.5 mmol/L (21.0-32.0); CREATININE 1.5 mg/dL (0.6-1.0); EST CRCL DRUG DOSING (CG) 23.51 mL/min; POTASSIUM,K 4.4 mmol/L (3.5-5.1); PROTEIN TOTAL,TP 6.3 g/dL (6.4-8.2)
[2023-05-27] MEDS: Sodium Chloride 1 GM Tab PO SCH (09:44)
[2023-05-27 14:34] LABS: CALCIUM 8.2 mg/dL (8.5-10.1); CARBON DIOXIDE,CO2 22.7 mmol/L (21.0-32.0); CREATININE 1.4 mg/dL (0.6-1.0); EST CRCL DRUG DOSING (CG) 25.19 mL/min; POTASSIUM,K 4.4 mmol/L (3.5-5.1)
[2023-05-27] MEDS: Sodium Chloride 0.9% 500 ML IV SCH (21:22)
[2023-05-28] MEDS: Acetaminophen 325 MG Tab PO PRN (02:49)
[2023-05-28] MEDS: Sodium Chloride 0.9% 1,000 ML IV ONE (03:38)
[2023-05-28 06:12] LABS: HEMATOCRIT 24.7 % (37.0-47.0); HEMOGLOBIN 8.7 g/dL (12.0-16.0); MEAN CORPUSCULAR HEMOGLOBIN 41.4 pg (28.0-32.0); MEAN CORPUSCULAR HGB CONC 35.2 g/dL (32.0-36.0); MEAN CORPUSCULAR VOLUME 117.6 fL (83.0-99.0); MEAN PLATELET VOLUME 11.9 fL (9.4-12.3); NRBC ABSOLUTE 0.12 K/uL (0.00-0.02); NRBC PERCENT 2.6 /100WBC (0.0-0.2); PLATELET COUNT,PLT 252 K/uL (150-400); WHITE BLOOD CELL COUNT,WBC 4.54 K/uL (3.9-11.3)
[2023-05-28 06:40] LABS: CALCIUM 7.6 mg/dL (8.5-10.1); CARBON DIOXIDE,CO2 18.1 mmol/L (21.0-32.0); CREATININE 1.4 mg/dL (0.6-1.0); EST CRCL DRUG DOSING (CG) 25.19 mL/min; MAGNESIUM 1.9 mg/dL (1.8-2.4); POTASSIUM,K 3.8 mmol/L (3.5-5.1)
[2023-05-28 06:46] LABS: BAND ABSOLUTE MAN 0.09; BAND PERCENT MAN 2 %; EOSINOPHILS ABSOLUTE MAN 0.05 K/uL (0.00-0.45); EOSINOPHILS PERCENT MAN 1 % (0-6); LYMPHOCYTES ABSOLUTE MAN 1.73 K/uL (1.00-4.80); LYMPHOCYTES PERCENT MAN 38 % (24-44); MONOCYTES ABSOLUTE MAN 0.64 K/uL (0.00-0.80); MONOCYTES PERCENT MAN 14 % (0-8); MYELOCYTE ABSOLUTE MAN 0.05; MYELOCYTE PERCENT MAN 1 %; SEG NEUTROPHILS PERCENT MAN 44 % (41-71)
[2023-05-28 06:47] LABS: POIKILOCYTOSIS 2+ MODERATE; SCHISTOCYTES FEW
[2023-05-28 06:48] LABS: TARGET CELLS 1+ SLIGHT
[2023-05-28] MEDS: Sodium Chloride 1 GM Tab PO ONE (09:39)
[2023-05-28] MEDS: Sodium Chloride 0.9% 500 ML IV SCH (11:20)
[2023-05-28] MEDS: Sodium Chloride 1 GM Tab PO SCH (14:57)
[2023-05-28 15:49] LABS: CALCIUM 7.8 mg/dL (8.5-10.1); CARBON DIOXIDE,CO2 18.2 mmol/L (21.0-32.0); CREATININE 1.4 mg/dL (0.6-1.0); EST CRCL DRUG DOSING (CG) 25.19 mL/min; POTASSIUM,K 4.4 mmol/L (3.5-5.1)
[2023-05-28 20:27] LABS: APPEARANCE,URINE CLEAR; BILIRUBIN,URINE NEGATIVE (NEGATIVE); COLOR,URINE YELLOW; GLUCOSE,URINE NEGATIVE (NEGATIVE); KETONES,URINE NEGATIVE (NEGATIVE); LEUKOCYTE ESTERASE,URINE NEGATIVE (NEGATIVE); NITRITE,URINE NEGATIVE (NEGATIVE); OCCULT BLOOD,URINE NEGATIVE (NEGATIVE); PROTEIN,URINE NEGATIVE (NEGATIVE); UROBILINOGEN,URINE 0.2 EU/dL (<2.0)
[2023-05-28 20:37] LABS: BACTERIA,URINE RARE (NEGATIVE); EPITHELIAL CELLS,URINE FEW (NONE-FEW); RBC,URINE 0-1 (0-2/HPF)
[2023-05-29 06:04] LABS: HEMATOCRIT 23.8 % (37.0-47.0); HEMOGLOBIN 8.4 g/dL (12.0-16.0); MEAN CORPUSCULAR HEMOGLOBIN 41.6 pg (28.0-32.0); MEAN CORPUSCULAR HGB CONC 35.3 g/dL (32.0-36.0); MEAN CORPUSCULAR VOLUME 117.8 fL (83.0-99.0); MEAN PLATELET VOLUME 11.9 fL (9.4-12.3); NRBC ABSOLUTE 0.14 K/uL (0.00-0.02); NRBC PERCENT 3.2 /100WBC (0.0-0.2); PLATELET COUNT,PLT 250 K/uL (150-400); RED BLOOD CELL COUNT 2.02 M/uL (4.10-5.30); WHITE BLOOD CELL COUNT,WBC 4.42 K/uL (3.9-11.3)
[2023-05-29 06:40] LABS: BAND ABSOLUTE MAN 0.04; BAND PERCENT MAN 1 %; BASOPHILS ABSOLUTE MAN 0.04 K/uL (0.00-0.20); BASOPHILS PERCENT MAN 1 % (0-1); EOSINOPHILS ABSOLUTE MAN 0.22 K/uL (0.00-0.45); EOSINOPHILS PERCENT MAN 5 % (0-6); LYMPHOCYTES ABSOLUTE MAN 1.64 K/uL (1.00-4.80); LYMPHOCYTES PERCENT MAN 37 % (24-44); METAMYELOCYTE ABSOLUTE MAN 0.04; METAMYELOCYTE PERCENT MAN 1 %; MONOCYTES PERCENT MAN 18 % (0-8); SEG NEUTROPHILS ABSOLUTE MAN 1.64 K/uL (1.80-7.70); SEG NEUTROPHILS PERCENT MAN 37 % (41-71)
[2023-05-29 06:41] LABS: POIKILOCYTOSIS 2+ MODERATE; SCHISTOCYTES FEW
[2023-05-29 06:42] LABS: ELLIPTOCYTES 1+ SLIGHT; TEARDROP CELLS FEW
[2023-05-29 06:45] LABS: A/G RATIO 0.8 (0.9-1.6); ALBUMIN 2.6 g/dL (3.4-5.0); BILIRUBIN TOTAL 0.4 mg/dL (0.2-1.0); CALCIUM 7.9 mg/dL (8.5-10.1); CARBON DIOXIDE,CO2 17.6 mmol/L (21.0-32.0); CREATININE 1.3 mg/dL (0.6-1.0); EST CRCL DRUG DOSING (CG) 27.12 mL/min; POTASSIUM,K 4.1 mmol/L (3.5-5.1); PROTEIN TOTAL,TP 5.8 g/dL (6.4-8.2)
[2023-05-30 05:50] LABS: HEMATOCRIT 24.3 % (37.0-47.0); HEMOGLOBIN 8.6 g/dL (12.0-16.0); MEAN CORPUSCULAR HEMOGLOBIN 42.6 pg (28.0-32.0); MEAN CORPUSCULAR HGB CONC 35.4 g/dL (32.0-36.0); MEAN CORPUSCULAR VOLUME 120.3 fL (83.0-99.0); MEAN PLATELET VOLUME 12.2 fL (9.4-12.3); NRBC ABSOLUTE 0.13 K/uL (0.00-0.02); NRBC PERCENT 2.6 /100WBC (0.0-0.2); PLATELET COUNT,PLT 239 K/uL (150-400); RED BLOOD CELL COUNT 2.02 M/uL (4.10-5.30); WHITE BLOOD CELL COUNT,WBC 5.04 K/uL (3.9-11.3)
[2023-05-30 06:15] LABS: A/G RATIO 0.8 (0.9-1.6); ALBUMIN 2.6 g/dL (3.4-5.0); BILIRUBIN TOTAL 0.4 mg/dL (0.2-1.0); CALCIUM 8.1 mg/dL (8.5-10.1); CREATININE 1.5 mg/dL (0.6-1.0); EST CRCL DRUG DOSING (CG) 23.51 mL/min; POTASSIUM,K 4.5 mmol/L (3.5-5.1); PROTEIN TOTAL,TP 5.8 g/dL (6.4-8.2)
[2023-05-30 08:18] LABS: BASOPHILS ABSOLUTE MAN 0.05 K/uL (0.00-0.20); BASOPHILS PERCENT MAN 1 % (0-1); SEG NEUTROPHILS ABSOLUTE MAN 1.71 K/uL (1.80-7.70); SEG NEUTROPHILS PERCENT MAN 34 % (41-71)
[2023-05-30 08:19] LABS: EOSINOPHILS ABSOLUTE MAN 0.15 K/uL (0.00-0.45); EOSINOPHILS PERCENT MAN 3 % (0-6); NRBC MANUAL 2 %
[2023-05-30 08:20] LABS: ACANTHOCYTES 1+ SLIGHT; LYMPHOCYTES ABSOLUTE MAN 2.42 K/uL (1.00-4.80); LYMPHOCYTES PERCENT MAN 48 % (24-44); MONOCYTES ABSOLUTE MAN 0.71 K/uL (0.00-0.80); MONOCYTES PERCENT MAN 14 % (0-8); POIKILOCYTOSIS 2+ MODERATE; SCHISTOCYTES 1+ SLIGHT
[2023-05-30] MEDS: Acetaminophen 500 MG Tab PO SCH (12:52)
[2023-05-30] MEDS ORDERED: Acetaminophen 325 MG Tab PO PRN (13:20)
[2023-05-30] MEDS: Gabapentin 100 MG Cap PO SCH (14:26)
[2023-05-30] MEDS: oxyCODONE 5 MG Tab PO PRN (23:10)
[2023-05-31 05:47] LABS: HEMATOCRIT 24.5 % (37.0-47.0); HEMOGLOBIN 8.4 g/dL (12.0-16.0); MEAN CORPUSCULAR HEMOGLOBIN 40.8 pg (28.0-32.0); MEAN CORPUSCULAR HGB CONC 34.3 g/dL (32.0-36.0); MEAN CORPUSCULAR VOLUME 118.9 fL (83.0-99.0); MEAN PLATELET VOLUME 12.5 fL (9.4-12.3); NRBC ABSOLUTE 0.11 K/uL (0.00-0.02); PLATELET COUNT,PLT 260 K/uL (150-400); RED BLOOD CELL COUNT 2.06 M/uL (4.10-5.30)
[2023-05-31 06:12] LABS: A/G RATIO 0.8 (0.9-1.6); ALBUMIN 2.6 g/dL (3.4-5.0); BILIRUBIN TOTAL 0.6 mg/dL (0.2-1.0); CALCIUM 8.2 mg/dL (8.5-10.1); CARBON DIOXIDE,CO2 19.9 mmol/L (21.0-32.0); CREATININE 1.2 mg/dL (0.6-1.0); EST CRCL DRUG DOSING (CG) 29.38 mL/min; POTASSIUM,K 4.2 mmol/L (3.5-5.1)
[2023-05-31 07:18] LABS: BASOPHILS ABSOLUTE MAN 0.05 K/uL (0.00-0.20); BASOPHILS PERCENT MAN 1 % (0-1); EOSINOPHILS ABSOLUTE MAN 0.38 K/uL (0.00-0.45); EOSINOPHILS PERCENT MAN 7 % (0-6); LYMPHOCYTES ABSOLUTE MAN 1.62 K/uL (1.00-4.80); LYMPHOCYTES PERCENT MAN 30 % (24-44); METAMYELOCYTE ABSOLUTE MAN 0.22; METAMYELOCYTE PERCENT MAN 4 %; MONOCYTES ABSOLUTE MAN 0.43 K/uL (0.00-0.80); MONOCYTES PERCENT MAN 8 % (0-8); MYELOCYTE ABSOLUTE MAN 0.11; MYELOCYTE PERCENT MAN 2 %; SEG NEUTROPHILS ABSOLUTE MAN 2.59 K/uL (1.80-7.70); SEG NEUTROPHILS PERCENT MAN 48 % (41-71)
[2023-05-31] MEDS: Metoprolol Succinate 25 MG Tab.ER PO SCH (08:39)
[2023-05-31] MEDS ORDERED: DULoxetine 30 MG Cap PO SCH (09:00)
== END 2023-05-31 15:00 | disposition home or self-care (01) | DRG 596 ==
LOC: MW.ED 10:25 → MW.MS 13:09
PROVIDERS: ADMIT Family Medicine; ATTEND Family Medicine
DX: R26.89 Other abnormalities of gait and mobility (principal); B02.9 Zoster without complications; N17.9 Acute kidney failure, unspecified; E87.1 Hypo-osmolality and hyponatremia; D46.9 Myelodysplastic syndrome, unspecified; H91.90 Unspecified hearing loss, unspecified ear; E78.00 Pure hypercholesterolemia, unspecified; I10 Essential (primary) hypertension; Z88.1 Allergy status to other antibiotic agents; Z91.041 Radiographic dye allergy status; J45.909 Unspecified asthma, uncomplicated; K21.9 Gastro-esophageal reflux disease without esophagitis; F41.9 Anxiety disorder, unspecified; E03.9 Hypothyroidism, unspecified; M17.9 Osteoarthritis of knee, unspecified; M35.3 Polymyalgia rheumatica; Z75.8 Other problems related to medical facilities and other health care; M25.562 Pain in left knee; Z88.0 Allergy status to penicillin; Z88.8 Allergy status to other drugs, medicaments and biological substances; Z91.048 Other nonmedicinal substance allergy status; Z79.82 Long term (current) use of aspirin; Z79.899 Other long term (current) drug therapy; Z87.81 Personal history of (healed) traumatic fracture; Z86.73 Personal history of transient ischemic attack (TIA), and cerebral infarction without residual deficits; Z90.89 Acquired absence of other organs; Z90.49 Acquired absence of other specified parts of digestive tract; Z90.710 Acquired absence of both cervix and uterus; Z98.891 History of uterine scar from previous surgery
CPT/HCPCS: 36415; 72192; 80053; 85025; 96372 ×2; 99284; A9270; J1885; J2360; J3490; 80048; 81001; 83735; 93971-26-LT; 93971-LT; 97110-GP; 97162-GP; 97530-GP; 99222; 99232; 99239; J1650; J7030; J7040; J7120

== ENCOUNTER 2023-09-28 17:57 | Inpatient (IN) | payer MEDICARE, OTHER ==
[2023-09-28 18:32] LABS: BASOPHILS ABSOLUTE AUTO 0.01 K/uL (0.00-0.20); BASOPHILS PERCENT AUTO 0.1 % (0.0-1.0); EOSINOPHILS ABSOLUTE AUTO 0.25 K/uL (0.00-0.45); EOSINOPHILS PERCENT AUTO 3.6 % (0.0-6.0); HEMATOCRIT 11.5 % (37.0-47.0); IMMATURE GRAN ABSOLUTE AUTO 0.14 K/uL (0.00-0.05); LYMPHOCYTES ABSOLUTE AUTO 1.19 K/uL (1.00-4.80); MEAN CORPUSCULAR HGB CONC 34.8 g/dL (32.0-36.0); MONOCYTES ABSOLUTE AUTO 0.59 K/uL (0.00-0.80); MONOCYTES PERCENT AUTO 8.4 % (0.0-8.0); NEUTROPHILS ABSOLUTE AUTO 4.82 K/uL (1.80-7.70); NEUTROPHILS PERCENT AUTO 68.9 % (41.0-71.0); NRBC ABSOLUTE 0.04 K/uL (0.00-0.02); NRBC PERCENT 0.6 /100WBC (0.0-0.2); PLATELET COUNT,PLT 370 K/uL (150-400); RED BLOOD CELL COUNT 0.91 M/uL (4.10-5.30)
[2023-09-28 18:53] LABS: INR 1.1 (0.86-1.11); PTT,PARTIAL THROMBOPLSTIN TIME 26.5 SEC (23.9-30.7)
[2023-09-28 19:07] LABS: A/G RATIO 0.9 (0.9-1.6); BILIRUBIN TOTAL 0.6 mg/dL (0.2-1.0); CALCIUM 9.1 mg/dL (8.5-10.1); CARBON DIOXIDE,CO2 24.2 mmol/L (21.0-32.0); CREATININE 1.1 mg/dL (0.6-1.0); EST CRCL DRUG DOSING (CG) 36.28 mL/min; POTASSIUM,K 3.9 mmol/L (3.5-5.1); PROTEIN TOTAL,TP 6.4 g/dL (6.4-8.2)
[2023-09-28 19:18] LABS: TSH ULTRASENSITIVE 4.77 uIU/mL (0.36-3.74)
[2023-09-28 19:26] LABS: PERCENT FE SATURATION 89.11 % (20-55)
[2023-09-28 19:27] LABS: MEAN CORPUSCULAR VOLUME 126.4 fL (83.0-99.0)
[2023-09-28 19:36] LABS: T4 FREE 1.48 ng/dL (0.76-1.46)
[2023-09-28 20:15] LABS: FOLIC ACID 13.2 ng/mL (8.60-58.90)
[2023-09-28] MEDS: Cefepime 2 GM in Sodium Chloride 0.9% 50 ML IV STA (20:17)
[2023-09-28] MEDS: Furosemide 40 MG/4 ML VIAL IVPUSH STA (20:18)
[2023-09-28 20:45] LABS: LACTIC ACID 1.5 mmol/L (0.4-2.0)
[2023-09-28 20:47] LABS: APPEARANCE,URINE CLOUDY; BILIRUBIN,URINE NEGATIVE (NEGATIVE); COLOR,URINE YELLOW; GLUCOSE,URINE NEGATIVE (NEGATIVE); KETONES,URINE TRACE mg/dL (NEGATIVE); LEUKOCYTE ESTERASE,URINE SMALL (NEGATIVE); NITRITE,URINE NEGATIVE (NEGATIVE); OCCULT BLOOD,URINE NEGATIVE (NEGATIVE); PH,URINE 7.5 (5.0-8.0); PROTEIN,URINE NEGATIVE (NEGATIVE)
[2023-09-28 20:59] LABS: AMORPHOUS SEDIMENT,URINE MODERATE (NEGATIVE); BACTERIA,URINE 3+ (NEGATIVE); EPITHELIAL CELLS,URINE RARE (NONE-FEW); MUCUS,URINE NOT SEEN (NONE-MOD); RBC,URINE 0-1 (0-2/HPF)
[2023-09-28 21:23] LABS: CORONAVIRUS COVID-19 NAA NEGATIVE (NEGATIVE); INFLUENZA A NAA NEGATIVE (NEGATIVE); INFLUENZA B NAA NEGATIVE (NEGATIVE)
[2023-09-28] MEDS: Doxycycline 100 MG in Sodium Chloride 0.9% 100 ML IV SCH (23:53)
[2023-09-29] MEDS: Pantoprazole 40 MG in Sodium Chloride 0.9% 10 ML IVPUSH SCH (01:18)
[2023-09-29 03:45] LABS: BASOPHILS ABSOLUTE AUTO 0.04 K/uL (0.00-0.20); BASOPHILS PERCENT AUTO 0.6 % (0.0-1.0); EOSINOPHILS ABSOLUTE AUTO 0.42 K/uL (0.00-0.45); EOSINOPHILS PERCENT AUTO 5.9 % (0.0-6.0); HEMATOCRIT 20.2 % (37.0-47.0); IMMATURE GRAN ABSOLUTE AUTO 0.16 K/uL (0.00-0.05); IMMATURE GRAN PERCENT AUTO 2.3 % (0.0-0.4); LYMPHOCYTES ABSOLUTE AUTO 1.16 K/uL (1.00-4.80); LYMPHOCYTES PERCENT AUTO 16.4 % (24.0-44.0); MEAN CORPUSCULAR HEMOGLOBIN 35.2 pg (28.0-32.0); MEAN CORPUSCULAR HGB CONC 34.7 g/dL (32.0-36.0); MEAN CORPUSCULAR VOLUME 101.5 fL (83.0-99.0); MEAN PLATELET VOLUME 11.9 fL (9.4-12.3); MONOCYTES ABSOLUTE AUTO 0.78 K/uL (0.00-0.80); NEUTROPHILS ABSOLUTE AUTO 4.51 K/uL (1.80-7.70); NEUTROPHILS PERCENT AUTO 63.8 % (41.0-71.0); NRBC ABSOLUTE 0.06 K/uL (0.00-0.02); NRBC PERCENT 0.8 /100WBC (0.0-0.2); PLATELET COUNT,PLT 276 K/uL (150-400); RED BLOOD CELL COUNT 1.99 M/uL (4.10-5.30); WHITE BLOOD CELL COUNT,WBC 7.07 K/uL (3.9-11.3)
[2023-09-29 04:09] LABS: A/G RATIO 0.9 (0.9-1.6); ALBUMIN 2.7 g/dL (3.4-5.0); BILIRUBIN TOTAL 1.2 mg/dL (0.2-1.0); CALCIUM 8.9 mg/dL (8.5-10.1); CARBON DIOXIDE,CO2 25.6 mmol/L (21.0-32.0); EST CRCL DRUG DOSING (CG) 39.9 mL/min; POTASSIUM,K 3.6 mmol/L (3.5-5.1); PROTEIN TOTAL,TP 5.8 g/dL (6.4-8.2)
[2023-09-29] MEDS: Cefepime 1 GM in Sodium Chloride 0.9% 50 ML IV SCH ×2 (04:30→14:47)
[2023-09-29 06:36] LABS: HEMOGLOBIN 6.4 g/dL (12.0-16.0); MEAN CORPUSCULAR HEMOGLOBIN 35.8 pg (28.0-32.0); MEAN CORPUSCULAR HGB CONC 35.6 g/dL (32.0-36.0); MEAN CORPUSCULAR VOLUME 100.6 fL (83.0-99.0); MEAN PLATELET VOLUME 11.6 fL (9.4-12.3); NRBC ABSOLUTE 0.07 K/uL (0.00-0.02); PLATELET COUNT,PLT 256 K/uL (150-400); RED BLOOD CELL COUNT 1.79 M/uL (4.10-5.30); WHITE BLOOD CELL COUNT,WBC 6.75 K/uL (3.9-11.3)
[2023-09-29 07:06] LABS: BAND ABSOLUTE MAN 0.47; BAND PERCENT MAN 7 %; EOSINOPHILS ABSOLUTE MAN 0.41 K/uL (0.00-0.45); EOSINOPHILS PERCENT MAN 6 % (0-6); LYMPHOCYTES ABSOLUTE MAN 1.08 K/uL (1.00-4.80); LYMPHOCYTES PERCENT MAN 16 % (24-44); MONOCYTES ABSOLUTE MAN 0.61 K/uL (0.00-0.80); MONOCYTES PERCENT MAN 9 % (0-8); SEG NEUTROPHILS ABSOLUTE MAN 4.19 K/uL (1.80-7.70); SEG NEUTROPHILS PERCENT MAN 62 % (41-71)
[2023-09-29 07:07] LABS: ANISOCYTOSIS 1+ SLIGHT; BURR CELLS 2+ MODERATE; OVALOCYTES 1+ SLIGHT; POIKILOCYTOSIS 1+ SLIGHT; TEARDROP CELLS 1+ SLIGHT
[2023-09-29] MEDS: Levothyroxine 88 MCG Tab PO SCH (09:12)
[2023-09-29] MEDS: Furosemide 40 MG/4 ML VIAL IVPUSH SCH ×2 (10:26→14:06)
[2023-09-29] MEDS: Potassium Chloride 20 MEQ Tab.ER PO ONE (10:26)
[2023-09-29 13:03] LABS: HEMATOCRIT 19.3 % (37.0-47.0); MEAN CORPUSCULAR HEMOGLOBIN 36.1 pg (28.0-32.0); MEAN CORPUSCULAR HGB CONC 36.3 g/dL (32.0-36.0); MEAN CORPUSCULAR VOLUME 99.5 fL (83.0-99.0); MEAN PLATELET VOLUME 11.8 fL (9.4-12.3); NRBC ABSOLUTE 0.06 K/uL (0.00-0.02); NRBC PERCENT 0.9 /100WBC (0.0-0.2); PLATELET COUNT,PLT 272 K/uL (150-400); RED BLOOD CELL COUNT 1.94 M/uL (4.10-5.30); WHITE BLOOD CELL COUNT,WBC 6.58 K/uL (3.9-11.3)
[2023-09-29] MEDS: Acetaminophen 325 MG Tab PO PRN (15:29)
[2023-09-29 16:05] LABS: HEMATOCRIT 21.2 % (37.0-47.0); HEMOGLOBIN 7.7 g/dL (12.0-16.0)
[2023-09-29] MEDS ORDERED: Cefepime 2 GM in Sodium Chloride 0.9% 50 ML IV SCH (18:00)
[2023-09-29] MEDS: traMADol 50 MG Tab PO PRN (18:03)
[2023-09-29] MEDS: Lidocaine 4% 1 each Patch TOP PRN (18:24)
[2023-09-29] MEDS: atorvaSTATin 40 MG Tab PO SCH (20:00)
[2023-09-29 20:32] LABS: HEMATOCRIT 21.7 % (37.0-47.0); HEMOGLOBIN 7.8 g/dL (12.0-16.0)
[2023-09-30 06:25] LABS: BASOPHILS ABSOLUTE AUTO 0.04 K/uL (0.00-0.20); BASOPHILS PERCENT AUTO 0.8 % (0.0-1.0); EOSINOPHILS ABSOLUTE AUTO 0.34 K/uL (0.00-0.45); HEMATOCRIT 21.3 % (37.0-47.0); HEMOGLOBIN 7.4 g/dL (12.0-16.0); IMMATURE GRAN ABSOLUTE AUTO 0.09 K/uL (0.00-0.05); IMMATURE GRAN PERCENT AUTO 1.8 % (0.0-0.4); LYMPHOCYTES ABSOLUTE AUTO 0.97 K/uL (1.00-4.80); LYMPHOCYTES PERCENT AUTO 19.9 % (24.0-44.0); MEAN CORPUSCULAR HEMOGLOBIN 34.3 pg (28.0-32.0); MEAN CORPUSCULAR HGB CONC 34.7 g/dL (32.0-36.0); MEAN CORPUSCULAR VOLUME 98.6 fL (83.0-99.0); MONOCYTES ABSOLUTE AUTO 0.76 K/uL (0.00-0.80); MONOCYTES PERCENT AUTO 15.6 % (0.0-8.0); NEUTROPHILS ABSOLUTE AUTO 2.68 K/uL (1.80-7.70); NEUTROPHILS PERCENT AUTO 54.9 % (41.0-71.0); PLATELET COUNT,PLT 236 K/uL (150-400); RED BLOOD CELL COUNT 2.16 M/uL (4.10-5.30); WHITE BLOOD CELL COUNT,WBC 4.88 K/uL (3.9-11.3)
[2023-09-30 06:57] LABS: MAGNESIUM 1.4 mg/dL (1.8-2.4); PHOSPHORUS 3.4 mg/dL (2.6-4.7)
[2023-09-30 07:01] LABS: A/G RATIO 0.8 (0.9-1.6); ALBUMIN 2.3 g/dL (3.4-5.0); BILIRUBIN TOTAL 1.4 mg/dL (0.2-1.0); CALCIUM 8.2 mg/dL (8.5-10.1); EST CRCL DRUG DOSING (CG) 39.9 mL/min; POTASSIUM,K 2.8 mmol/L (3.5-5.1); PROTEIN TOTAL,TP 5.2 g/dL (6.4-8.2)
[2023-09-30 07:10] LABS: CARBON DIOXIDE,CO2 26.8 mmol/L (21.0-32.0)
[2023-09-30] MEDS ORDERED: Potassium Chloride 10 MEQ in Premix Bag 1 BAG IV SCH (08:30)
[2023-09-30] MEDS ORDERED: Magnesium Sulfate (4.06 MEQ/ML) 5 GM/10 ML SDV IV ONE (08:30)
[2023-09-30] MEDS ORDERED: Magnesium Sulfate/Water 4 GM in Premix Bag 1 BAG IV ONE (08:45)
[2023-09-30] MEDS ORDERED: Potassium Chloride 20 MEQ Tab.ER PO ONE (09:00)
[2023-09-30] MEDS: Potassium Chloride 20 MEQ Tab.ER PO ONE (09:01)
[2023-09-30] MEDS: Magnesium Sulfate 4 GM, Potassium Chloride 40 MEQ in Sodium Chloride 0.9% 500 ML IV ONE (09:03)
[2023-09-30 13:30] LABS: HEMATOCRIT 24.2 % (37.0-47.0); HEMOGLOBIN 8.6 g/dL (12.0-16.0)
[2023-09-30 14:00] LABS: CALCIUM 8.5 mg/dL (8.5-10.1); CARBON DIOXIDE,CO2 25.1 mmol/L (21.0-32.0); EST CRCL DRUG DOSING (CG) 39.9 mL/min; MAGNESIUM 2.8 mg/dL (1.8-2.4); POTASSIUM,K 3.7 mmol/L (3.5-5.1)
[2023-10-01 06:15] LABS: BASOPHILS ABSOLUTE AUTO 0.06 K/uL (0.00-0.20); EOSINOPHILS ABSOLUTE AUTO 0.51 K/uL (0.00-0.45); EOSINOPHILS PERCENT AUTO 8.4 % (0.0-6.0); HEMATOCRIT 22.7 % (37.0-47.0); HEMOGLOBIN 8.3 g/dL (12.0-16.0); IMMATURE GRAN PERCENT AUTO 1.7 % (0.0-0.4); LYMPHOCYTES ABSOLUTE AUTO 1.55 K/uL (1.00-4.80); LYMPHOCYTES PERCENT AUTO 25.6 % (24.0-44.0); MEAN CORPUSCULAR HEMOGLOBIN 36.1 pg (28.0-32.0); MEAN CORPUSCULAR HGB CONC 36.6 g/dL (32.0-36.0); MEAN CORPUSCULAR VOLUME 98.7 fL (83.0-99.0); MONOCYTES ABSOLUTE AUTO 1.11 K/uL (0.00-0.80); MONOCYTES PERCENT AUTO 18.3 % (0.0-8.0); NEUTROPHILS ABSOLUTE AUTO 2.72 K/uL (1.80-7.70); NRBC ABSOLUTE 0.08 K/uL (0.00-0.02); NRBC PERCENT 1.3 /100WBC (0.0-0.2); PLATELET COUNT,PLT 291 K/uL (150-400); WHITE BLOOD CELL COUNT,WBC 6.05 K/uL (3.9-11.3)
[2023-10-01 06:37] LABS: A/G RATIO 0.8 (0.9-1.6); ALBUMIN 2.4 g/dL (3.4-5.0); BILIRUBIN TOTAL 1.1 mg/dL (0.2-1.0); CARBON DIOXIDE,CO2 26.4 mmol/L (21.0-32.0); EST CRCL DRUG DOSING (CG) 39.9 mL/min; POTASSIUM,K 3.3 mmol/L (3.5-5.1); PROTEIN TOTAL,TP 5.4 g/dL (6.4-8.2)
[2023-10-01] MEDS: Bisacodyl 5 MG Tab PO PRN (07:10)
[2023-10-01] MEDS: Potassium Chloride 20 MEQ Tab.ER PO ONE (08:23)
[2023-10-01] MEDS: Lidocaine 4% 1 each Patch TOP PRN (11:24)
[2023-10-01] MEDS: Bisacodyl 10 MG Supp RECTAL ONE (11:34)
[2023-10-01] MEDS: DULoxetine 30 MG Cap PO SCH (11:55)
[2023-10-02 05:54] LABS: HEMATOCRIT 24.3 % (37.0-47.0); HEMOGLOBIN 8.5 g/dL (12.0-16.0); MEAN CORPUSCULAR HEMOGLOBIN 34.8 pg (28.0-32.0); MEAN CORPUSCULAR VOLUME 99.6 fL (83.0-99.0); NRBC ABSOLUTE 0.04 K/uL (0.00-0.02); NRBC PERCENT 0.6 /100WBC (0.0-0.2); PLATELET COUNT,PLT 287 K/uL (150-400); RED BLOOD CELL COUNT 2.44 M/uL (4.10-5.30); WHITE BLOOD CELL COUNT,WBC 6.23 K/uL (3.9-11.3)
[2023-10-02 06:25] LABS: A/G RATIO 0.8 (0.9-1.6); ALBUMIN 2.5 g/dL (3.4-5.0); BILIRUBIN TOTAL 1.1 mg/dL (0.2-1.0); CALCIUM 7.9 mg/dL (8.5-10.1); CARBON DIOXIDE,CO2 29.4 mmol/L (21.0-32.0); EST CRCL DRUG DOSING (CG) 39.9 mL/min; POTASSIUM,K 3.4 mmol/L (3.5-5.1); PROTEIN TOTAL,TP 5.7 g/dL (6.4-8.2)
[2023-10-02 06:51] LABS: BAND ABSOLUTE MAN 0.12; BAND PERCENT MAN 2 %; SEG NEUTROPHILS ABSOLUTE MAN 3.43 K/uL (1.80-7.70); SEG NEUTROPHILS PERCENT MAN 55 % (41-71)
[2023-10-02 06:52] LABS: ANISOCYTOSIS 1+ SLIGHT; EOSINOPHILS ABSOLUTE MAN 0.37 K/uL (0.00-0.45); EOSINOPHILS PERCENT MAN 6 % (0-6); LYMPHOCYTES ABSOLUTE MAN 1.37 K/uL (1.00-4.80); LYMPHOCYTES PERCENT MAN 22 % (24-44); MONOCYTES ABSOLUTE MAN 0.93 K/uL (0.00-0.80); MONOCYTES PERCENT MAN 15 % (0-8)
[2023-10-02] MEDS: DULoxetine 30 MG Cap PO SCH (08:49)
[2023-10-02] MEDS: Potassium Chloride 20 MEQ Tab.ER PO ONE (10:29)
[2023-10-02] MEDS: Gabapentin 100 MG Cap PO SCH (14:34)
[2023-10-02] MEDS: HYDROmorphone 2 MG Tab PO PRN (19:23)
[2023-10-02] MEDS: Nortriptyline 25 MG Cap PO SCH (20:53)
[2023-10-03 05:49] LABS: HEMATOCRIT 24.6 % (37.0-47.0); HEMOGLOBIN 8.7 g/dL (12.0-16.0); MEAN CORPUSCULAR HEMOGLOBIN 35.2 pg (28.0-32.0); MEAN CORPUSCULAR HGB CONC 35.4 g/dL (32.0-36.0); MEAN CORPUSCULAR VOLUME 99.6 fL (83.0-99.0); MEAN PLATELET VOLUME 11.9 fL (9.4-12.3); NRBC ABSOLUTE 0.06 K/uL (0.00-0.02); NRBC PERCENT 0.8 /100WBC (0.0-0.2); PLATELET COUNT,PLT 289 K/uL (150-400); RED BLOOD CELL COUNT 2.47 M/uL (4.10-5.30); WHITE BLOOD CELL COUNT,WBC 7.41 K/uL (3.9-11.3)
[2023-10-03] MEDS: Ondansetron 4 MG/2 ML SDV IVPUSH PRN (05:51)
[2023-10-03 06:11] LABS: CARBON DIOXIDE,CO2 27.9 mmol/L (21.0-32.0); CREATININE 0.9 mg/dL (0.6-1.0); POTASSIUM,K 3.2 mmol/L (3.5-5.1)
[2023-10-03 06:12] LABS: A/G RATIO 0.8 (0.9-1.6); ALBUMIN 2.7 g/dL (3.4-5.0); BILIRUBIN TOTAL 1.4 mg/dL (0.2-1.0); CALCIUM 8.4 mg/dL (8.5-10.1); EST CRCL DRUG DOSING (CG) 44.34 mL/min; MAGNESIUM 1.8 mg/dL (1.8-2.4)
[2023-10-03] MEDS: Pantoprazole 40 MG Tab.CR PO SCH (06:31)
[2023-10-03 06:48] LABS: BAND PERCENT MAN 4 %; BASOPHILS ABSOLUTE MAN 0.07 K/uL (0.00-0.20); BASOPHILS PERCENT MAN 1 % (0-1); EOSINOPHILS ABSOLUTE MAN 0.22 K/uL (0.00-0.45); EOSINOPHILS PERCENT MAN 3 % (0-6); LYMPHOCYTES ABSOLUTE MAN 1.85 K/uL (1.00-4.80); LYMPHOCYTES PERCENT MAN 25 % (24-44); MONOCYTES ABSOLUTE MAN 1.33 K/uL (0.00-0.80); MONOCYTES PERCENT MAN 18 % (0-8); SEG NEUTROPHILS ABSOLUTE MAN 3.63 K/uL (1.80-7.70); SEG NEUTROPHILS PERCENT MAN 49 % (41-71)
[2023-10-03 06:52] LABS: BURR CELLS 1+ SLIGHT; TEARDROP CELLS 1+ SLIGHT
[2023-10-03 06:55] LABS: SCHISTOCYTES 1+ SLIGHT
[2023-10-03 06:58] LABS: POIKILOCYTOSIS 1+ SLIGHT
[2023-10-03 06:59] LABS: ANISOCYTOSIS 1+ SLIGHT
[2023-10-03] MEDS: Potassium Chloride 20 MEQ Tab.ER PO SCH (08:24)
[2023-10-03] MEDS: Phosphorus #1 250 MG Tab PO SCH (08:24)
[2023-10-03] MEDS ORDERED: Naloxone 0.4 MG/ML SDV IVPUSH PRN (10:30)
[2023-10-03] MEDS ORDERED: LORazepam ORAL Concentrate 1MG/0.5ML U/D SL PRN (10:33)
[2023-10-03] MEDS ORDERED: Bisacodyl 10 MG Supp RECTAL PRN (10:34)
[2023-10-03] MEDS: Morphine 10 MG/0.5 ML Oral Syringe SL PRN (17:21)
== END 2023-10-04 17:07 | disposition hospice, home (50) | DRG 811 ==
LOC: MW.ED 17:57 → MW.ICU 21:06 → MW.MS 10-01 14:05
PROVIDERS: ADMIT Internal Medicine; ATTEND Internal Medicine
PROC: 30233N1 Transfusion of Nonautologous Red Blood Cells into Peripheral Vein, Percutaneous Approach (ICD-10-PCS; principal; 2023-09-28)
PROC: 30233N1 Transfusion of Nonautologous Red Blood Cells into Peripheral Vein, Percutaneous Approach (ICD-10-PCS; 2023-09-28)
DX: I12.9 Hypertensive chronic kidney disease with stage 1 through stage 4 chronic kidney disease, or unspecified chronic kidney disease (principal); D46.9 Myelodysplastic syndrome, unspecified; D63.1 Anemia in chronic kidney disease; J18.9 Pneumonia, unspecified organism; E87.1 Hypo-osmolality and hyponatremia; E78.00 Pure hypercholesterolemia, unspecified; Z75.8 Other problems related to medical facilities and other health care; J90 Pleural effusion, not elsewhere classified; I82.512 Chronic embolism and thrombosis of left femoral vein; M19.90 Unspecified osteoarthritis, unspecified site; I13.0 Hypertensive heart and chronic kidney disease with heart failure and stage 1 through stage 4 chronic kidney disease, or unspecified chronic kidney disease; Z90.49 Acquired absence of other specified parts of digestive tract; Z90.710 Acquired absence of both cervix and uterus; I50.9 Heart failure, unspecified; Z66 Do not resuscitate; Z51.5 Encounter for palliative care; M13.869 Other specified arthritis, unspecified knee; Z91.048 Other nonmedicinal substance allergy status; E03.9 Hypothyroidism, unspecified; M35.3 Polymyalgia rheumatica; N18.31 Chronic kidney disease, stage 3a; H91.90 Unspecified hearing loss, unspecified ear; J45.909 Unspecified asthma, uncomplicated; K21.9 Gastro-esophageal reflux disease without esophagitis; F41.9 Anxiety disorder, unspecified; E78.2 Mixed hyperlipidemia; G62.9 Polyneuropathy, unspecified; R79.89 Other specified abnormal findings of blood chemistry; Z88.0 Allergy status to penicillin; Z88.8 Allergy status to other drugs, medicaments and biological substances; Z90.5 Acquired absence of kidney; Z79.82 Long term (current) use of aspirin; Z98.49 Cataract extraction status, unspecified eye; Z86.73 Personal history of transient ischemic attack (TIA), and cerebral infarction without residual deficits; Z79.890 Hormone replacement therapy; Z79.899 Other long term (current) drug therapy; Z85.831 Personal history of malignant neoplasm of soft tissue
CPT/HCPCS: 0240U; 36415; 36430; 51702; 70450; 70450-26; 71045; 71045-26; 80048; 80053; 81001; 82272; 82607; 82728; 82746; 83550; 83605; 83690; 83735; 83880; 84100; 84439; 84443; 84484; 85014; 85018; 85025; 85027; 85610; 85730; 86156; 86850; 86900; 86901; 86920; 87040; 87086; 93005; 93010; 93306; 96365; 96375; 97163-GP; 99223; 99231; 99232; 99233; 99238; 99285-25; 99291; A9270-GY; J0692; J1940; J2405; J2470; J3475; J3480; J3490; J7040; P9016